=== PATIENT | female | born 2000 | race American Indian/Alaskan Native ===

== ENCOUNTER → 2023-05-02 16:00 | Outpatient (BNVA) | payer OTHER, SELFPAY | PROVIDERS: PCP Internal Medicine; Visit Provider Physician Assistant Surgical ==

== ENCOUNTER 2023-06-18 09:03 | Outpatient (AMB) | payer OTHER, SELFPAY ==
[2023-06-18 09:05] VITALS: BP 113/65; PULSE 71; TEMP 36.4; O2SAT 100; BMI 41.4
--- NOTE | 2023-06-18 09:05 | A.OFFVIS_ITS ---
Intake VS Expanded 06/18/23 09:05 Height 5 ft 4 in Weight 241 lb BMI 41.4 BP 113/65 Blood Pressure Location Rt brachial Blood Pressure Position Sitting Pulse 71 Pulse Source Pulse Oximeter Temp 97.5 F Temperature Source Temporal Artery Scan Pulse Oximetry 100 Oxygen Delivery Method Room Air Body Fat 118.6 Body Fat Percentage 49.2 Free Fat Mass 122.4 Muscle Mass 116.2 Visceral Mass 12.0 Water Mass 88.2 BMR 1,798 Intake Visit Reasons: (OV) SWL BMI 42.0 Motor Coach Supervisor Required: Yes Motor Coach Supervisor Name: office cmi Allergies No Known Allergies Allergy (Verified 06/18/23 09:08) Medication List - Last Reconciled 06/18/23 by WYATT Martinez ferrous sulfate 325 mg PO DAILY HPI HPI Comments History of Present Illness Details Pt is here to start the [facility] weight loss program. She heard about our program from her clients. Her goal is to lose weight and achieve a healthy lifestyle. She reports first being concerned about her weight about 3 years ago, highest weight to date was 260. Current weight is 241 pounds with a BMI of 41.4. She has tried multiple methods of weight loss including fad diets, exercise without permanent results. She lives with her kids and . 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 She wakes at:?7 am, and goes to bed at?11 pm. Dinner is at 4 pm. Breakfast: skip or sandwich AM snack: green grapes Lunch: skip PM snack: skip Dinner: rice and meat and beans After dinner: skip Other snacks: none Liquids: 80-96 oz water, (previously 10 cans of coke daily, now none), Alcohol/marijuana/tobacco intake: none Exercise: treadmill at home, GERD score: 1 ISABELL score: 4 ESS score: 9 QOL score: 82 PFSH Surgical History Hx of section Family History Mother Anemia Son No problems noted. Son No problems noted. Daughter No problems noted. Social History Alcohol intake: never Patient Tobacco Use Status: Never used Tobacco Review of Systems Const All systems reviewed & are unremarkable except as noted in HPI and below Physical Exam Vital Signs: Last Vital Signs Temp 97.5 F 06/18/23 09:05 Pulse 71 06/18/23 09:05 BP 113/65 06/18/23 09:05 Pulse Ox 100 06/18/23 09:05 Oxygen Delivery Method Room Air 06/18/23 09:05 Const General: cooperative, healthy appearing and no acute distress Orientation/consciousness: patient oriented x3 HEENT Head: Yes normal to inspection Ears: hearing grossly normal bilaterally General nose exam: Normal external nose present Face and sinus: Yes normal facial exam Eyes General: appearance normal, both eyes and all related structures Resp Effort & Inspection: normal respiratory effort Auscultation: clear to auscultation bilaterally Cardio Rate: regular rate Rhythm: regular rhythm Heart sounds: S1 normal heart sound present and S2 normal heart sound present GI Inspection: Yes normal to inspection, No distended and Yes obesity Palpation (GI): Soft to palpation, nontender and no guarding Auscultation: normal bowel sounds Skin General skin exam: no rashes or lesions noted Neuro General: patient oriented x3 Extrem General: No edema Psych Appearance: grossly normal Mental Status: mental status grossly normal Speech and movement: Normal speech and movement present Affect: normal affect Attitude: cooperative Assessment & Plan Assessment & Plan (1) Morbid obesity: Code(s): E66.01 - Morbid (severe) obesity due to excess calories Plan: This is a?23 yo female who will start our SWL program to prepare for bariatric surgery.? Blood work, h pylori , CXR, ECG, Abd US and UGI have been ordered. She is being scheduled for RD and BH initial consultations. She will start SWL classes and watch the first three videos before her next appointment. ? Adequate sleep of 7-8 hours per night discussed, awakening at 7 am and going to bed around 11 pm ? Purchase body composition analyzer scale (Odalis lacy or [place] recommended) and check weight weekly. The best time to do this is first thing in the morning after going to the bathroom. 1. Nutritional counseling: Be sure to careful read the number of scoops per shake Start with 2 Premier Protein shakes ([employer], [employer], [employer]), (1 scoop in 8 oz low fat unsweetened almond milk or water) First shake at 8am-10am 1 protein bar (Fulfil bars at Target, [facility], or [employer]) at 11am-1pm. Second shake at 2pm-4 pm Dinner at 4pm (8 forks of protein and 8 forks of salad/vegetables). Meal to include lean meat (beef, fish, pork, turkey, chicken), cooked vegetables or a salad with olive oil and/or fruits (berries, pears, apples, kiwi). Avoid salt, breads, potatoes, rice, pasta, desserts. Another protein bar at 6pm-8pm. Try to drink 64 oz of water daily and avoid soda and juices. ?2. Each shake would be drunk slowly, like coffee in a period of 2 hours. ?3. Cut each bar in 4 pieces and eat each piece in 30 min ?to make each bar last 2 hours. ?4. I emphasized the importance of measuring accurately the food portion and measure it carefully when serving the food on the plate ?5. The meal portions include 8 full-size forks of meat and 8 full-size forks of salad. You always eat the meat portion but you can replace up to half of the forks of salad/vegetables with rice, potatoes or pasta, or a fruit ?if you like. The less you do it the better weight loss will be. ?6. One full-size fork is what can be scooped on the fork without falling aside and not what can be bit with the fork. Use regular forks like those you find in a typical restaurant. ?7.? Please send me weight measurements as soon as possible and then once a week. Always include your diet and exercise plan. Alternatively come weekly at the office for weight checks and send me the measurements. ?8. Exercise counseling: Begin by watching a stretching for beginners video. Start slowly and begin to stretch your muscles. You should do this before and after each exercise session to prevent injury. Please use the new treadmill that you got for your home. Ask the crm marketing manager or one of the trainers how to use the machines if you are unfamiliar with them. Start treadmill with a speed of 3.0 and incline of 0, increasing incline by 1 every 3 minutes to the highest comfortable level (max 6 for now) then decrease in the same fashion. Repeat process to a goal of 300 calories. Goal of 2000 calories burned or more weekly. If you decide to join a gym or add another exercise machine such as a stationary bike, let me know and I can give you instruction for that. Tracking calories is essential. 9. Alternatively start walking outside daily, tracking calories with a goal of 300 calories per day, daily. You can download the [email or web address] [email or web address] which can track your time, distance and calories while walking outside. You press start in the bhupendra when you start and then stop when you are finished. 10.? It is important to avoid and for at least 18 months postoperatively and it has been discussed at the information session 11. Please get labs, EKG and chest X-Ray within 1 week. 12. Discussed and answered all questions regarding?obtained consent to participate in the [facility]?Registry. 13. Please follow the diet plan exactly, without any change. If you do not like something about the plan or you feel hungry, you need to communicate with me so I can help you revise the plan. You should not change the plan yourself. Text me at [phone] 14. Goal is to lose at least 12 pounds in the first month 15. Goal is to lose 10% of your weight before surgery, which is about 24 lbs. Ultimate weight goal: 220 lbs before surgery Patient is morbidly obese and is not considered stable at this time.?I spent a total of 70 minutes reviewing/updating records, examining the patient and counseling the patient on weight management as detailed above. Orders: Orders Vitamin B12 and Folate Today E66.01 - Morbid (severe) obesity due to excess calories Comprehensive Met. Panel Today E66.01 - Morbid (severe) obesity due to excess calories C Reactive Protein Today E66.01 - Morbid (severe) obesity due to excess calories Ferritin Today E66.01 - Morbid (severe) obesity due to excess calories Hemoglobin A1c Today E66.01 - Morbid (severe) obesity due to excess calories Insulin Today E66.01 - Morbid (severe) obesity due to excess calories IRON PROFILE Today E66.01 - Morbid (severe) obesity due to excess calories Lipid Panel Today E66.01 - Morbid (severe) obesity due to excess calories PTHI Today E66.01 - Morbid (severe) obesity due to excess calories TSH reflex Free T4 Today E66.01 - Morbid (severe) obesity due to excess calories Vitamin A Today E66.01 - Morbid (severe) obesity due to excess calories Vitamin B1 Today E66.01 - Morbid (severe) obesity due to excess calories Vitamin D 25-OH Total Today E66.01 - Morbid (severe) obesity due to excess calories Zinc Today E66.01 - Morbid (severe) obesity due to excess calories ECG 12 lead EKG Today E66.01 - Morbid (severe) obesity due to excess calories FL upper GI w air Today E66.01 - Morbid (severe) obesity due to excess calories Complete Blood Count Auto Diff Today E66.01 - Morbid (severe) obesity due to excess calories H Pylori Breath Test Today E66.01 - Morbid (severe) obesity due to excess calories US abdomen comp w elastography Today E66.01 - Morbid (severe) obesity due to excess calories XR chest 2V Today E66.01 - Morbid (severe) obesity due to excess calories Referrals Behavioral Health Referral E66.01 - Morbid (severe) obesity due to excess calories Nutrition/Dietitian Referral E66.01 - Morbid (severe) obesity due to excess calories Coding Level of Care Code New Pt Level 5 (50692) Diagnoses Morbid obesity E66.01 Time Spent (min) 70
== END 2023-06-18 10:09 | disposition home or self-care (01) ==
PROVIDERS: PCP Internal Medicine; Visit Provider Physician Assistant Surgical
DX: E66.01 Morbid (severe) obesity due to excess calories (principal); Z68.41 Body mass index [BMI] 40.0-44.9, adult
CPT/HCPCS: 99205

== ENCOUNTER 2023-06-18 09:03 | Outpatient (REF) | payer OTHER, SELFPAY ==
[2023-06-22 14:56] LABS: H Pylori Breath Test Negative (Negative)
== END 2023-06-18 09:04 | disposition home or self-care (01) ==
LOC: HO.LNP 09:03
PROVIDERS: PCP Internal Medicine; Visit Provider Physician Assistant Surgical
DX: Z11.2 Encounter for screening for other bacterial diseases (principal); E66.01 Morbid (severe) obesity due to excess calories
CPT/HCPCS: 83013; 99202; 99211

== ENCOUNTER 2023-07-07 09:51 | Outpatient (AMB) | payer OTHER, SELFPAY ==
--- NOTE | 2023-07-07 10:00 | MHC.AMNUTRGE ---
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 States she received the nutrition plan from KATI. didn't realize kind bars weren't protein bars meal 2-3pm had tilapia or chicken with broccoli and lettuce Hydration: water now, no sugar sweetened beverages Exercise: Everyday treadmill 45 minutes has one at home SW online classes: completed, reviewed Dietary counseling reduction Who buys your food self Who prepares/cooks your food self Meal frequency regular: dinner and snacks and never: breakfast and lunch Lifestyle Eating out 4 or more times/week Food frequency Fruit: daily (grapes and strawberries), Vegetables: daily (broccoli and lettuce), Grains/pasta/breads/cereal (carbs): daily, Meats/poultry/fish (protein): daily, Restaurants/fast foods: several times weekly, Desserts/sweets: daily, Soda: daily and Juice: daily Diagnosis Nutrition problem #1 overweight/obesity As related to (etiology) #1 excess energy intake and physical inactivity As evidenced by (sign/symptom) #1 high BMI Monitoring/Goals Nutrition problem monitoring total energy intake, level of knowledge/skill, total PRO intake, total CHO intake and weight Outcome progress progressing Learning/Education Readiness to learn good Stages of change action Educational materials provided Yes Most Recent Diabetes Results: No Data to Display [facility] Surgical History Hx of section Family History Mother Anemia Son No problems noted. Son No problems noted. Daughter No problems noted. Social History Alcohol intake: never Patient Tobacco Use Status: Never used Tobacco Assessment & Plan Assessment & Plan (1) Morbid obesity: Code(s): E66.01 - Morbid (severe) obesity due to excess calories Patient Instructions: explained the difference between KIND bars and protein bars. Corrected pt on the right nutrition plan and explained the differences between. OK'ed using the premade shakes until she meets with Gallito but gave bars list. Patient is cleared from a nutrition standpoint for bariatric surgery. Educational requirements have been completed. Reviewed vitamin supplementation and commitment to protein shake for several months post surgery. Encouraged communication with office as needed Coding Level of Care Code Nutr Indiv Intake (74672) Diagnoses Morbid obesity E66.01 Time Spent (min) 35
[2023-07-07 10:21] VITALS: BMI 40.8
== END 2023-07-07 10:29 | disposition home or self-care (01) ==
PROVIDERS: PCP Internal Medicine; Visit Provider Dietitian, Registered
DX: E66.01 Morbid (severe) obesity due to excess calories (principal)

== ENCOUNTER → 2023-07-07 09:51 | Outpatient (BNVA) | payer OTHER, SELFPAY | PROVIDERS: PCP Internal Medicine; Visit Provider Dietitian, Registered | DX: E66.01 Morbid (severe) obesity due to excess calories (principal); Z68.41 Body mass index [BMI] 40.0-44.9, adult; Z71.3 Dietary counseling and surveillance | CPT/HCPCS: 97802 ==

== ENCOUNTER 2023-07-10 09:20 | Outpatient (REF) | payer OTHER, SELFPAY ==
--- NOTE | ~2023-07-10 | XR_ITS ---
EXAMINATION: XR CHEST 2 VIEWS CLINICAL INFORMATION: Morbid obesity. COMPARISON: None. TECHNIQUE: Frontal and lateral views of the chest were obtained. FINDINGS: The heart, great vessels, pulmonary vasculature and mediastinum are normal. The lungs show no focal infiltrate, effusion or pneumothorax. There is no acute osseous abnormality. XR/XR chest 2V IMPRESSION: No active cardiopulmonary disease.
--- NOTE | 2023-07-10 10:49 | ECG_ITS ---
Test Reason : E66.01 Blood Pressure : / mmHG Vent. Rate : 067 BPM Atrial Rate : 067 BPM P-R Int : 174 ms QRS Dur : 082 ms QT Int : 392 ms P-R-T Axes : 026 038 008 degrees QTc Int : 414 ms Normal sinus rhythm Normal ECG No previous ECGs available Referred By: Gallito Lutz Electronically Signed By:ALICIA WAHL
[2023-07-10 11:04] LABS: MANUAL DIFF FLAG NO
[2023-07-10 12:22] LABS: Basophils Percent Auto 0.3 % (0-2); Eosinophils Percent Auto 0.6 % (0-4); Hematocrit 36.1 % (37.0-47.0); Hemoglobin 10.6 g/dl (12.0-16.0); Imm Gran Abs Auto 0.02 X10*3/uL (0.00-0.03); Imm Gran Pct Auto 0.3 % (0.0-0.4); Lymphocytes Absolute Auto 1.7 X10*3/uL (1.2-4.9); Lymphocytes Percent Auto 26.4 % (20-40); Mean Corpuscular HGB Conc 29.4 g/dl (31.0-35.0); Mean Corpuscular Hemoglobin 22.4 pg (27.0-33.0); Mean Corpuscular Volume 76.2 fL (80.0-98.0); Mean Platelet Volume 12.1 fL (9.4-12.3); Monocytes Absolute Auto 0.3 X10*3/uL (0.1-1.2); Monocytes Percent Auto 4.9 % (2-11); Neutrophils Absolute Auto 4.4 x10*3/uL (2.0-8.3); Neutrophils Percent Auto 67.5 % (45-73); Platelet Count 289 X10*3/uL (160-400); Red Blood Count 4.74 X10*6/uL (4.20-5.50); Red Cell Distribution Width 15.8 % (11.0-16.0); White Blood Count 6.6 X10*3/uL (4.8-10.8)
[2023-07-10 12:30] LABS: Estimated Average Glucose 108 mg/dL; Hemoglobin A1c % 5.4 %
[2023-07-10 13:17] LABS: Alanine Aminotransferase 9 U/L (0-31); Albumin Level 4.4 g/dL (3.5-5.0); Alkaline Phosphatase 95 U/L (39-117); Anion Gap 10 (12-20); Aspartate Amino Transferase 15 U/L (5-31); Bilirubin Total 0.3 mg/dL (0.0-1.0); Blood Urea Nitrogen 6 mg/dL (9-16); C Reactive Protein 0.36 mg/dL (< or = 0.50); Calcium 9.7 mg/dL (8.4-10.2); Carbon Dioxide 24 mmol/L (22-29); Chloride 109 mmol/L (96-108); Cholesterol 131 mg/dL; Estimated Glomerular Filt Rate > 60; Glucose Random 80 mg/dL (60-115); HDL Cholesterol 42 mg/dL; Iron 25 mcg/dL (30-160); LDL Cholesterol Calculated 79 mg/dl; Percent Iron Saturation 7 % (15-50); Potassium 3.4 mmol/L (3.3-5.1); Sodium 140 mmol/L (135-145); Total Iron Binding Capacity 368 mcg/dL (228-428); Total Protein 7.9 g/dL (6.5-8.0); Triglycerides 54 mg/dL; Unsaturated Iron Binding 343 ug/dL
[2023-07-10 13:35] LABS: Ferritin 6 ng/mL (10-122); Insulin 14 uU/mL (2-29); TSH reflex Free T4 0.41 uIU/mL (0.32-4.0); Vitamin D 25-OH Total 14.1 ng/mL (>30)
[2023-07-10 13:42] LABS: Folate 12.2 ng/mL (> or = 4.0); Vitamin B12 922 pg/mL (200-900)
[2023-07-14 13:48] LABS: Calcium (PTHI) 9.4 mg/dL (8.6-10.2); PTHI 55 pg/mL (16-77)
[2023-07-15 01:57] LABS: Zinc 72 mcg/dL (60-130)
[2023-07-15 15:28] LABS: Vitamin A 18 mcg/dL (38-98)
[2023-07-16 16:09] LABS: Vitamin B1 7 nmol/L (8-30)
== END 2023-07-10 09:21 | disposition home or self-care (01) ==
LOC: HO.LAB 09:20
PROVIDERS: PCP Pediatrics; Visit Provider Physician Assistant Surgical
DX: E66.01 Morbid (severe) obesity due to excess calories (principal); F41.9 Anxiety disorder, unspecified; F32.A Depression, unspecified; F51.5 Nightmare disorder
CPT/HCPCS: 36415; 71046; 80053; 80061; 82306; 82607; 82728; 82746; 83036; 83525; 83540; 83970; 84425; 84443; 84590; 84630; 85025; 86140; 93005

== ENCOUNTER 2023-07-10 09:27 | Outpatient (AMB) | payer OTHER, SELFPAY ==
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
== END 2023-07-10 10:42 | disposition home or self-care (01) ==
PROVIDERS: PCP Internal Medicine; Visit Provider Counselor Mental Health
DX: F41.9 Anxiety disorder, unspecified (principal); F32.A Depression, unspecified; F51.5 Nightmare disorder
CPT/HCPCS: 90791

== ENCOUNTER 2023-07-22 09:04 | Outpatient (AMB) | payer OTHER, SELFPAY ==
--- NOTE | 2023-07-22 09:11 | MHC.OFFVISWM ---
Intake VS Expanded 07/22/23 09:18 Height 5 ft 4 in Weight 235 lb 6.4 oz BMI 40.4 Blood Pressure Location Rt brachial Blood Pressure Position Sitting Pulse 79 Pulse Source Pulse Oximeter Temp 98.7 F Temperature Source Temporal Artery Scan Pulse Oximetry 97 Oxygen Delivery Method Room Air Body Fat 113.6 Body Fat Percentage 48.3 Free Fat Mass 121.6 Muscle Mass 115.6 Visceral Mass 11.0 Water Mass 87.6 BMR 1,781 Intake Visit Reasons: (OV) F/U SWL Charge Account Identification Clerk Required: Yes Charge Account Identification Clerk Name: office cmi Allergies No Known Allergies Allergy (Verified 07/22/23 09:15) Medication List - Last Reconciled 07/22/23 by WYATT Martinez cholecalciferol (vitamin D3) 125 mcg PO DAILY 90 days ferrous sulfate 325 mg PO DAILY thiamine HCl (vitamin B1) 100 mg PO DAILY 90 days vitamin A palmitate 4,500 mcg PO DAILY 90 days HPI HPI Comments History of Present Illness Details The patient is a pleasant 23 year old female who returns to the clinic for pre-operative surgical weight loss management. They were last seen in the office on 06/18/23, recorded weight at that time was 241 pounds, with a BMI of 41.4. Today's weight is 235.4 pounds and BMI is 40.4. There has been a weight loss of 9 pounds since initiating the surgical weight loss program on 05/02/23 with a total body weight loss of 3.6 %. Pre op work up completed as follows: SWL classes:? 07/01 BH appts: f/u 08/07/23 ? ? RD appts: cleared-07/07/23 Labs: 07/10/23-mild iron def anemia, , low D, B1 H. pylori: 06/18/23-neg CXR: 07/10/23-nad EK07/10/23-normal ABD U/S: 08/05/23 UGI: 09/12/23 The patient reports she is doing well. No complaints. Only doing 1/2 bar at a time. Current meal plan includes: 2 Premier Protein shakes ([employer], [employer], [employer]), (1 scoop in 8 oz low fat unsweetened almond milk or water) First shake at 8am-10am 1/2 protein bar (Fulfil bars at [employer], [facility], or [employer]) at 11am-1pm. Second shake at 2pm-4 pm Dinner at 4pm (8 forks of protein and 8 forks of salad/vegetables). Another 1/2 protein bar at 6pm-8pm. Drinking 48 oz of water Current exercise plan includes: treadmill 7 days per week, 45 minutes, speed 2 incline 8, cannot track calories. PFSH Surgical History Hx of section Family History Mother Anemia Son No problems noted. Son No problems noted. Daughter No problems noted. Social History Alcohol intake: never Patient Tobacco Use Status: Never used Tobacco Review of Systems Const All systems reviewed & are unremarkable except as noted in HPI and below Physical Exam Const General: healthy appearing and no acute distress Resp Effort & Inspection: normal respiratory effort Auscultation: clear to auscultation bilaterally Cardio Rate: regular rate Rhythm: regular rhythm GI Auscultation: normal bowel sounds Extrem General: Yes normal to inspection Assessment & Plan Assessment & Plan (1) Morbid obesity: Code(s): E66.01 - Morbid (severe) obesity due to excess calories Plan: overall 9 pound weight loss continue meal plan increase speed on treadmill and increase incline in interval fashion 2-10. reminded of upcoming appts rtc 3-4 weeks Coding Level of Care Code Est Pt Level 3 (32185) Diagnoses Morbid obesity E66.01
[2023-07-22 09:18] VITALS: PULSE 79; TEMP 37.1; O2SAT 97; BMI 40.4
== END 2023-07-22 09:30 | disposition home or self-care (01) ==
PROVIDERS: PCP Internal Medicine; Visit Provider Physician Assistant Surgical
DX: E66.01 Morbid (severe) obesity due to excess calories (principal); Z68.41 Body mass index [BMI] 40.0-44.9, adult
CPT/HCPCS: 99213

== ENCOUNTER → 2023-07-22 09:04 | Outpatient (BNVA) | payer OTHER, SELFPAY | PROVIDERS: PCP Internal Medicine; Visit Provider Physician Assistant Surgical | DX: E66.01 Morbid (severe) obesity due to excess calories (principal); Z68.41 Body mass index [BMI] 40.0-44.9, adult | CPT/HCPCS: 99212 ==

== ENCOUNTER 2023-08-05 07:57 | Outpatient (REF) | payer OTHER, SELFPAY ==
--- NOTE | ~2023-08-05 | US_ITS ---
EXAMINATION: US COMPLETE ABDOMEN WITH LIVER ELASTOGRAPHY CLINICAL INFORMATION: Morbid obesity. COMPARISON: None available. TECHNIQUE: Real-time imaging of the abdominal viscera. Noninvasive ultrasound liver fibrosis assessment is performed using Ileana ElastPQ point quantification shear wave elastography (2D-SWE) with a C5-2 MHz transducer. Multiple elastography samples are obtained. FINDINGS: PANCREAS: Head and body appear unremarkable. Tail not visualized. ABDOMINAL AORTA: The proximal, middle, and distal aortic segments are normal in caliber. INFERIOR VENA CAVA: Visualized portions are normal. LIVER: No focal lesion or intrahepatic biliary duct dilatation is appreciated. The right lobe measures 14.3 cm in length. The left lobe measures 8.3 cm in length. Portal flow is towards the liver (hepatopetal). Shear wave liver elastography median stiffness is 1.28 m/s (reference: normal median stiffness is 1.3 m/s or less). Relative compliance of the liver measures 4.8 kPa. GALLBLADDER: The gallbladder is physiologically distended without evidence of stones, sludge, polyps, wall thickening or pericholecystic fluid. COMMON BILE DUCT: Normal in caliber measuring 0.1 cm in diameter. RIGHT KIDNEY: No hydronephrosis. No renal calculi or focal parenchymal lesion identified. The kidney measures 10.1 cm in maximum dimension. LEFT KIDNEY: No hydronephrosis. No renal calculi or focal parenchymal lesion identified. The kidney measures 11.2 cm in maximum dimension. SPLEEN: The spleen measures 12.8 cm in maximum dimension. FREE FLUID: None. US/US abdomen comp w elastography IMPRESSION: Minimal risk of clinically significant fibrosis. Borderline mild splenomegaly. REFERENCE: Society of Radiologists in Ultrasound Liver Stiffness Thresholds (2020): LIVER STIFFNESS THRESHOLDS: *Liver Stiffness equal or less than 1.3 m/s: High probability of being normal. *Liver Stiffness less than 1.7 m/s: In the absence of other known clinical signs, rules out compensated advanced chronic liver disease. *Liver Stiffness 1.7-2.1 m/s: Suggestive of compensated advanced chronic liver disease but need further test for confirmation. *Liver Stiffness over 2.1 m/s: Rules in compensated advanced chronic liver disease. *Liver Stiffness over 2.4 m/s: Suggestive of clinically significant portal hypertension. QUALITY OF DATA SET: *IQR/Median value equal or less than 0.15 implies a quality data set. *IQR/Median value over 0.15 implies a poor quality data set. SIGNIFICANT CHANGE FROM PRIOR EXAM: Significant change if liver stiffness measurement is 10% or greater from prior exam. OTHER CONSIDERATIONS: The stage of liver fibrosis may be overestimated in the setting of acute hepatitis, liver inflammation, elevated liver function tests, hepatic vascular congestion, obstructive cholestasis, non-fasting state, and infiltrative diseases such as amyloidosis and lymphoma. In some patients with NAFLD, the liver stiffness thresholds for compensated advanced chronic liver disease may be lower. In causes other than viral hepatitis and NAFLD, liver stiffness thresholds are not well established.
== END 2023-08-05 07:58 | disposition home or self-care (01) ==
LOC: HO.US 07:57
PROVIDERS: PCP Internal Medicine; Visit Provider Physician Assistant Surgical
DX: E66.01 Morbid (severe) obesity due to excess calories (principal)
CPT/HCPCS: 76705; 76981

== ENCOUNTER 2023-08-07 09:34 | Outpatient (AMB) | payer OTHER, SELFPAY ==
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
== END 2023-08-07 12:33 | disposition home or self-care (01) ==
PROVIDERS: PCP Pediatrics; Visit Provider Counselor Mental Health
DX: F41.9 Anxiety disorder, unspecified (principal); F32.A Depression, unspecified; F51.5 Nightmare disorder
CPT/HCPCS: 90834

== ENCOUNTER → 2023-08-07 09:34 | Outpatient (BNVA) | payer OTHER, SELFPAY | PROVIDERS: PCP Pediatrics; Visit Provider Counselor Mental Health ==

== ENCOUNTER 2023-08-15 08:38 | Outpatient (AMB) | payer OTHER, SELFPAY ==
--- NOTE | 2023-08-15 08:39 | A.OFFVIS_ITS ---
Intake VS Expanded 08/15/23 08:44 Height 5 ft 4 in Weight 231 lb BMI 39.6 BP 121/59 L Blood Pressure Location Rt brachial Blood Pressure Position Sitting Pulse 72 Pulse Source Pulse Oximeter Temp 98 F Temperature Source Temporal Artery Scan Pulse Oximetry 100 Body Fat 111.2 Body Fat Percentage 48.1 Free Fat Mass 119.8 Muscle Mass 113.8 Visceral Mass 11.0 Water Mass 86.2 BMR 1,752 Intake Visit Reasons: (OV) F/U SWL Automation Engineer Required: Yes Automation Engineer Name: office cmi Allergies No Known Allergies Allergy (Verified 08/15/23 08:42) Medication List - Last Reconciled 08/15/23 by WYATT Martinez cholecalciferol (vitamin D3) 125 mcg PO DAILY 90 days ferrous sulfate 325 mg PO DAILY thiamine HCl (vitamin B1) 100 mg PO DAILY 90 days HPI HPI Comments History of Present Illness Details The patient is a pleasant 23 year old female who returns to the clinic for pre-operative surgical weight loss management. They were last seen in the office on 07/22/23, recorded weight at that time was 235.4 pounds, with a BMI of 40.4. Today's weight is 231 pounds and BMI is 39.7. There has been a weight loss of 13.4 pounds since initiating the surgical weight loss program on 05/22/23 with a total body weight loss of 5.4 %. Pre op work up completed as follows: SWL classes:? 07/01 BH appts: f/u 08/27/23 ? ? RD appts: cleared-07/07/23 Labs: 07/10/23-mild iron def anemia, , low D, B1 H. pylori: 06/18/23-neg CXR: 07/10/23-nad EK07/10/23-normal ABD U/S: 08/05/23-min fatty liver UGI: 09/12/23 The patient reports she is doing well. No complaints. States previous Vit A wasn't covered by insurance so she didn't get it. I sent in another formulary. Current meal plan includes: 2 Premier Protein shakes ([employer], [employer], [facility]), (1 scoop in 8 oz low fat unsweetened almond milk or water) First shake at 8am-10am 1/2 protein bar (Fulfil bars at [employer], [facility], or [employer]) at 11am-1pm. Second shake at 2pm-4 pm Dinner at 4pm (8 forks of protein and 8 forks of salad/vegetables). Another 1/2 protein bar at 6pm-8pm. Drinking 48 oz of water Current exercise plan includes: treadmill 7 days per week, 60 minutes, speed 5 incline 5, cannot track calories. PFSH Surgical History Hx of section Family History Mother Anemia Son No problems noted. Son No problems noted. Daughter No problems noted. Social History Alcohol intake: never Patient Tobacco Use Status: Never used Tobacco Review of Systems Const All systems reviewed & are unremarkable except as noted in HPI and below Physical Exam Vital Signs: Last Vital Signs Temp 98 F 08/15/23 08:44 Pulse 72 08/15/23 08:44 BP 121/59 L 08/15/23 08:44 Pulse Ox 100 08/15/23 08:44 BMI result Body Mass Index 39.6 Const General: healthy appearing and no acute distress Resp Effort & Inspection: normal respiratory effort Auscultation: clear to auscultation bilaterally Cardio Rate: regular rate Rhythm: regular rhythm GI Auscultation: normal bowel sounds Extrem General: Yes normal to inspection Assessment & Plan Assessment & Plan (1) Obesity (BMI 30-39.9): Code(s): E66.9 - Obesity, unspecified Plan: change meal plan to : 2 Premier Protein shakes ([employer], [employer], [facility]), (1 scoop in 8 oz low fat unsweetened almond milk or water) First shake at 8am-10am Second shake at 2pm-4 pm Dinner at 4pm (8 forks of protein and 8 forks of salad/vegetables). Another 1/2 protein bar at 6pm-8pm. Continue exercise and reminded of upcoming appt. RTC 3 weeks Medications: New vitamin A 4,800 mcg (2 x 2,400 mcg) PO DAILY 90 days 180 caps 0RF Coding Level of Care Code Est Pt Level 3 (80533) Diagnoses Obesity (BMI 30-39.9) E66.9
[2023-08-15 08:44] VITALS: BP 121/59; PULSE 72; TEMP 36.6; O2SAT 100; BMI 39.6
== END 2023-08-15 09:00 | disposition home or self-care (01) ==
PROVIDERS: PCP Internal Medicine; Visit Provider Physician Assistant Surgical
DX: E66.9 Obesity, unspecified (principal); Z68.39 Body mass index [BMI] 39.0-39.9, adult
CPT/HCPCS: 99213

== ENCOUNTER → 2023-08-15 08:38 | Outpatient (BNVA) | payer OTHER, SELFPAY | PROVIDERS: PCP Internal Medicine; Visit Provider Physician Assistant Surgical | DX: E66.9 Obesity, unspecified (principal); Z68.39 Body mass index [BMI] 39.0-39.9, adult | CPT/HCPCS: 99212 ==

== ENCOUNTER 2023-08-27 10:34 | Outpatient (AMB) | payer OTHER, SELFPAY ==
--- NOTE | 2023-08-27 10:07 | A.OFFWM_ITS ---
Intake Intake Visit Reasons: VIDEO BH F/U Allergies No Known Allergies Allergy (Verified 08/15/23 08:42) PFSH Surgical History Hx of section Family History Mother Anemia Son No problems noted. Son No problems noted. Daughter No problems noted. Social History Alcohol intake: never Patient Tobacco Use Status: Never used Tobacco Behavioral Health Assessment Weight Management Therapy Therapy Notes Details Pt presents for a f/up. Pt reports been struggling with meal plan and controlling urges for food and her speed when eating her meal. Noticing she's not chewing well her food and then feeling stuffed with stomach ache after, also has been scnacking at night since she's hungry after 6pm. Stated she was doing well until 2 weeks ago. INTERVENTIONS: Processed current challenges and struggles practicing mindful eating. Explored possible triggers or anxieties. Administered BES again, and there is no changes on scores. Provided client with strategies to replace/delay intrusive thoughts/urges for food and RESPONSE: Pt was open and engaged. PLAN: Clinician will share with construction safety manager and Provider patient's concerns and interest in having alternatives for healthy snacks and possible changess (add something) on meal plan. Questionnaires Binge Eating Scale Group 1 A. I don't feel self-conscious about my wt. or body size when I'm with others. B. I feel concerned about how I look to others, but it normally does not make me fell disappointed with myself C. I do get self-conscious about my appearance and wt. which makes me feel disappointed in myself. D. I feel very self-conscious about my wt. and frequently I feel intense shame and disgust for myself. I try to avoid social contacts because of my self- consciousness. Response Group 1: D Group 2 A. I don't have any difficulty eating slowly in the proper manner. B. Although I seem to gobble down foods, I don't end up feeling stuffed because of eating to much. C. At times, I tend to eat quickly and then, I feel uncomfortably full afterwards. D. I have the habit of bolting down my food, without really chewing it. When this happens I usually feel uncomfortably stuffed because I've eaten to much. Response Group 2: C (Same) Group 3 A. I feel capable to control my eating urges when I want to. B. I feel like I have failed to control my eating more than the average person. C. I feel utterly helpless when it comes to feeling in control of my eating urges. D. Because I feel so helpless about controlling my eating I have become very desperate about trying to get control. Response Group 3: D (Same) Group 4 A. I don't have the habit of eating when I'm bored. B. I sometimes eat when I'm bored, but often I'm able to get busy and get my mi nd off food. C. I have a regular habit of eating when I'm bored, but occasionally, I can use some other activity to get my mind off eating. D. I have a strong habit of eating when I'm bored. Nothing seems to help me breath the habit. Response Group 4: C (Same) Group 5 A. I'm usually physically hungry when I eat something. B. Occasionally, I eat something on impulse even though I really am not hungry. C. I have the regular habit of eating foods, that I might not really enjoy, to satisfy a hungry feeling even though physically, I don't need the food. D. Although I'm not physically hungry, I get a hungry feeling in my mouth that only seems to be satisfied when I eat a food, like sandwich, that fills my mouth. Sometimes, when I eat the food to satisfy my mouth hunger, I then spit the food out so I won't gain weight. Response Group 5: C Group 6 A. I don't feel any guilt or self-hate after I overeat. B. After I overeat, occasionally I feel guilt or self-hate. C. Almost all the time I experience strong guilt or self-hate after I overeat. Response Group 6: C Group 7 A. I don't lose total control of my eating when dieting even after periods when I overeat. B. Sometimes when I eat a forbidden food on a diet, I feel like I blew it and eat even more. C. Frequently, I have the habit of saying to myself, I've blown it now, why not go all the way, when I overeat on a diet. When that happens I eat more. D. I have a regular habit of starting a strict diets for myself but I break the diets by going on an eating binge. My life seems to be either a feast or famine. Response Group 7: D Group 8 A. I rarely eat so much food that I feel uncomfortably stuffed afterwards. B. Usually about once a month, I each such a quantity of food, I end up feeling very stuffed. C. I have regular periods during the month when I eat large amounts of food, either at mealtime or at snacks. D. I eat so much food that I regularly feel quite uncomfortable after eating and sometimes a bit nauseous. Response Group 8: B Group 9 A. My level of calorie intake does not go up very high or go down very low on a regular basis. B. Sometimes after I overeat, I will try to reduce my caloric intake to almost nothing to compensate for the excess calories I've eaten. C. I have a regular habit of overeating during the night. It seems that my routine is not to be hungry in the morning but overeat in the evening. D. In my adult years, I have had week-long periods where I practically starve myself. This follows periods when I overeat. It seems I live a life of either feast or famine. Response Group 9: B Group 10 A. I usually am able to stop eating when I want to. I know when enough is enough. B. Every so often, I experience a compulsion to eat which I can't seem to control. C. Frequently, I experience strong urges to eat which I seem unable to control, but at other times I can control my eating urges. D. I feel incapable of controlling urges to eat. I have a fear of not being able to stop eating voluntarily. Response Group 10: B Group 11 A. I don't have any problem stopping eating when I feel full. B. I usually can stop eating when I feel full but occasionally overeat leaving me feeling uncomfortably stuffed. C. I have a problem stopping eating once I start and usually I feel uncomfortably stuffed after I eat a meal. D. Because I have a problem not being able to stop eating when I want, I sometimes have to induce vomiting to relieve my stuffed feeling. Response Group 11: A Group 12 A. I seem to eat just as much when I'm with others, Family social gatherings as when I'm by myself. B. Sometimes, when I'm with other persons, I don't eat as much as I want to eat because I'm self-conscious about my eating. C. Frequently, I eat only a small amount of food when others are present, haseeb use I'm very embarrassed about my eating. D. I feel so ashamed about overeating that I pick times to overeat when I know no one will see me. I feel like a closet eater. Response Group 12: C Group 13 A. I eat three meals a day with only an occasional between meal snack. B. I eat 3 meals a day, but I also normally snack between meals. C. When I am snacking heavily, I get in the habit of skipping regular meals. D. There are regular periods when I seem to be continually eating, with no planned meals. Response Group 13: C Group 14 A. I don't think much about trying to control unwanted eating urges. B. At least some of the time, I feel my thoughts are pre-occupied with trying to control my eating urges. C. I feel that frequently I spend much time thinking about how much I ate or about trying not to eat anymore. D. It seems to me that most of my waking hours are pre-occupied by thoughts about eating or not eating. I feel like I'm constantly struggling not to eat. Response Group 14: D (Same.) Group 15 A. I don't think about food a great deal. B. I have strong craving for food but they last only for brief periods of time. C. I have days when I can't seem to think about anything else but food. D. Most of my days seem to be pre-occupied with thoughts about food. I feel like I live to eat. Response Group 15: B Group 16 A. I usually know whether or not I'm physically hungry. I take the right portion of food to satisfy me. B. Occasionally, I feel uncertain about knowing whether or not I'm physically hungry. A these times it's hard to know how much food I should take to satisfy me. C. Even though I might know how many calories I should eat, I don't have any idea what is a normal amount of food for me. Response Group 16: B Binge Eating Score: 29 (No changes. ) Score less than 17 Minimal Risk Score between 18-26 Moderate Risk Score between 27-46 High Risk Assessment & Plan Assessment & Plan (1) Anxiety: Code(s): F41.9 - Anxiety disorder, unspecified (2) Depression: Code(s): F32.A - Depression, unspecified (3) Nightmares: Code(s): F51.5 - Nightmare disorder Plan Follow up again in 4 weeks. Next bhupendra: 09/24/23 at 10am via telehealth. Telehealth Telehealth Location of provider rendering services: other Location of patient: address on file Patient Identification confirmed using: Name, : Yes Telehealth method: video Patient verbally consented to treatment: Yes Patient verbally consented to billing insurance company: Yes Patient informed of any privacy concerns related to visit: Yes Minutes spent on Phone/Video with Pt.: 60 Coding Level of Care Code Established Pt Tele Psytx >53 mins (61083) Patient Type Established Diagnoses Anxiety F41.9 Depression F32.A Nightmares F51.5 Time Spent (min) 60
== END 2023-08-27 11:00 | disposition home or self-care (01) ==
LOC: HO.HBST 10:34
PROVIDERS: PCP Internal Medicine; Visit Provider Counselor Mental Health
DX: F41.9 Anxiety disorder, unspecified (principal); F32.A Depression, unspecified; F51.5 Nightmare disorder
CPT/HCPCS: 90837

== ENCOUNTER → 2023-08-27 10:34 | Outpatient (BNVA) | payer OTHER, SELFPAY | PROVIDERS: PCP Internal Medicine; Visit Provider Counselor Mental Health ==

== ENCOUNTER 2023-09-08 11:02 | Outpatient (AMB) | payer OTHER, SELFPAY ==
--- NOTE | 2023-09-08 11:21 | MHC.OFFVISWM ---
Intake VS Expanded 09/08/23 11:29 BP 112/58 L Blood Pressure Location Rt brachial Blood Pressure Position Sitting Pulse 91 Pulse Source Pulse Oximeter Temp 97.8 F Temperature Source Temporal Artery Scan Pulse Oximetry 99 Oxygen Delivery Method Room Air Height 5 ft 4 in Weight 231 lb 6.4 oz BMI 39.7 Body Fat % 47.8 Body Fat Mass 110.4 Fat Free Mass 120.8 Visceral Fat Rating 11.0 Body Water % 37.6 Body Water Mass 86.8 Muscle Mass/Score 114.6 Basal Metabolic Rate/Score 1,765 Intake Visit Reasons: (OV) F/U SWL Chemical Engineering Technician Required: Yes Chemical Engineering Technician Name: office cmi Allergies No Known Allergies Allergy (Verified 09/08/23 11:27) Medication List - Last Reconciled 09/08/23 by WYATT Martinez bisacodyl (Dulcolax (bisacodyl)) 10 mg VA DAILY PRN cholecalciferol (vitamin D3) 125 mcg PO DAILY 90 days ferrous sulfate 325 mg PO DAILY sennosides (senna) 17.2 mg (2 x 8.6 mg) PO BEDTIME PRN 90 days thiamine HCl (vitamin B1) 100 mg PO DAILY 90 days vitamin A 4,800 mcg (2 x 2,400 mcg) PO DAILY 90 days HPI HPI Comments History of Present Illness Details The patient is a pleasant 23 year old female who returns to the clinic for pre-operative surgical weight loss management. They were last seen in the office on 08/15/23, recorded weight at that time was 231 pounds, with a BMI of 39.6. Today's weight is 231.4 pounds and BMI is 39.7. There has been a weight loss of 13 pounds since initiating the surgical weight loss program on 05/02/23 with a total body weight loss of 5.3 %. Pre op work up completed as follows: SWL classes:? 07/01 BH appts: f/u 09/24/23 ? ? RD appts: cleared-07/07/23 Labs: 07/10/23-mild iron def anemia, , low D, B1 H. pylori: 06/18/23-neg CXR: 07/10/23-nad EK07/10/23-normal ABD U/S: 08/05/23-min fatty liver UGI: 09/12/23 The patient reports she has not lost any weight in the last month and has not communicated as she lost her phone but got a new one. Reports constipation for a week, min abdominal pain. Pos Flatus, no nausea. Reports following meal plan but changed her bar to quest without communicating. She is also not drinking the shake over 2 hrs Current meal plan includes: 2 Premier Protein shakes ([employer], [employer], [employer]), (1 scoop in 8 oz low fat unsweetened almond milk or water) First shake at 8am-10am 1/2 bar Quest 11-1 pm Second shake at 2pm-4 pm Dinner at 4pm (8 forks of protein and 8 forks of salad/vegetables). Drinking 48 oz of water Current exercise plan includes: treadmill 7 days per week, 60 minutes, speed 5 incline 5, machine cannot track calories. PFSH Surgical History Hx of section Family History Mother Anemia Son No problems noted. Son No problems noted. Daughter No problems noted. Social History Alcohol intake: never Patient Tobacco Use Status: Never used Tobacco Physical Exam Vital Signs: Last Vital Signs Temp 97.8 F 09/08/23 11:29 Pulse 91 09/08/23 11:29 BP 112/58 L 09/08/23 11:29 Pulse Ox 99 09/08/23 11:29 Oxygen Delivery Method Room Air 09/08/23 11:29 BMI result Body Mass Index 39.7 Const General: healthy appearing and no acute distress Resp Effort & Inspection: normal respiratory effort Auscultation: clear to auscultation bilaterally Cardio Rate: regular rate Rhythm: regular rhythm GI Auscultation: normal bowel sounds Extrem General: Yes normal to inspection Assessment & Plan Assessment & Plan (1) Obesity (BMI 30-39.9): Code(s): E66.9 - Obesity, unspecified Plan: 2 Premier Protein shakes ([employer], [employer], [employer]), (1 scoop in 8 oz low fat unsweetened almond milk or water) First shake at 8am-10am 1 bar Quest 11-1 pm Second shake at 2pm-4 pm Dinner at 4pm (8 forks of protein and 8 forks of salad/vegetables). imperative to communicate rtc 1 month (2) Constipation: Code(s): K59.00 - Constipation, unspecified Plan: add dulvcolax, senna, incr water to 64 oz daily Medications: New sennosides (senna) 17.2 mg (2 x 8.6 mg) PO BEDTIME PRN 180 tabs 0RF constipation 90 days bisacodyl (Dulcolax (bisacodyl)) 10 mg VA DAILY PRN 12 ea 0RF constipation Coding Level of Care Code Est Pt Level 4 (76954) Diagnoses Obesity (BMI 30-39.9) E66.9 Constipation K59.00 Time Spent (min) 40
[2023-09-08 11:29] VITALS: BP 112/58; PULSE 91; TEMP 36.6; O2SAT 99; BMI 39.7
== END 2023-09-08 12:17 | disposition home or self-care (01) ==
PROVIDERS: PCP Internal Medicine; Visit Provider Physician Assistant Surgical
DX: E66.9 Obesity, unspecified (principal); Z68.39 Body mass index [BMI] 39.0-39.9, adult
CPT/HCPCS: 99215

== ENCOUNTER → 2023-09-08 11:02 | Outpatient (BNVA) | payer OTHER, SELFPAY | PROVIDERS: PCP Internal Medicine; Visit Provider Physician Assistant Surgical | DX: E66.9 Obesity, unspecified (principal); K59.00 Constipation, unspecified; Z68.39 Body mass index [BMI] 39.0-39.9, adult | CPT/HCPCS: 99212 ==

== ENCOUNTER 2023-09-12 09:30 | Outpatient (REF) | payer OTHER, SELFPAY ==
--- NOTE | ~2023-09-12 | FL_ITS ---
EXAMINATION: XR FLUOROSCOPY UPPER GI WITH AIR CLINICAL INFORMATION: Morbid/severe obesity due to excess calories. COMPARISON: None available. TECHNIQUE: Routine upper GI air-contrast study was performed in upright and lying position. FINDINGS: Following oral administration of thick barium and effervescent granules is normal propagation of bolus from the oral cavity through the pharynx, esophagus into stomach without any evidence of obstruction, narrowing or stricture. On placing patient supine and prone lying the course, caliber and peristalsis of the stomach, duodenal bulb and the sweep is normal. There is a large gastroesophageal reflux without hiatal hernia. The mucosal pattern of esophagus, stomach and the duodenum is normal. FLUOROSCOPY TIME: 1 minute and 31 seconds DOSE AREA PRODUCT: 83.92 uGy-m2 (microgray-meter squared) FL/FL upper GI w air IMPRESSION: Large gastroesophageal reflux without hiatal hernia. Unremarkable upper GI air-contrast study.
== END 2023-09-12 09:31 | disposition home or self-care (01) ==
LOC: HO.XRAY 09:30
PROVIDERS: PCP Internal Medicine; Visit Provider Physician Assistant Surgical
DX: E66.01 Morbid (severe) obesity due to excess calories (principal)
CPT/HCPCS: 74246

== ENCOUNTER → 2023-09-12 09:31 | Outpatient (BNV) | payer OTHER, SELFPAY | PROVIDERS: PCP Internal Medicine; Visit Provider Radiology Diagnostic Radiology | DX: E66.01 Morbid (severe) obesity due to excess calories (principal); K21.9 Gastro-esophageal reflux disease without esophagitis | CPT/HCPCS: 74246 ==

== ENCOUNTER 2023-09-24 10:00 | Outpatient (AMB) | payer OTHER, SELFPAY ==
--- NOTE | 2023-09-24 10:24 | A.OFFWM_ITS ---
Intake Intake Visit Reasons: VIDEO BH F/U Allergies No Known Allergies Allergy (Verified 09/08/23 11:27) [facility] Surgical History Hx of section Family History Mother Anemia Son No problems noted. Son No problems noted. Daughter No problems noted. Social History Alcohol intake: never Patient Tobacco Use Status: Never used Tobacco Behavioral Health Assessment Weight Management Therapy Therapy Notes Details Pt presents for a f/up. Pt reports she is doing better since our last appointment. She's following meal plan as prescribed. PT shared current meds and changes she had recently has been benefitial for her mental health and overall functioning. Since using Prasozin she's sleeping better and feeling less stresses/anxious during the day. MEDICATION LIST NEW Prazosin 5Mg 1 at bedtime Venlafaxine 150Mg 1 at day Lorazepan 0.5mg 1 tab as needed. INTERVENTIONS: Active listening. Processed challenges, needs and progress. Used CBT. We worked on strategies to implement problem-solving approach and manage each worry/problem at the time instead of focus on these as worries and get more anxious, the goal is for her to transform triggers into needs and create a plan to overcome/cope better with these. Completed PHQ-9 RESPONSE: Pt engaged and active. Mental status exam within normal limits. Pt responded well to interventions. PLAN: Pt will be seen again post-surgery. Presenting Concerns Referral Source P provider. Sees Gallito SCHNEIDER. Reason for referral Completion of behavioral health assessment as part of process for weight-loss surgery. Precipitating Event Medical issues Medications Is the patient compliant with medications? Yes Does the patient have Lauar Guardian in place? Not applicable Does the patient use complimentary health approaches? No Questionnaires PHQ-9 Over the last 2 weeks, how often have you been bothered by any of the following problems? 1. Little interest or pleasure in doing things: not at all 2. Feeling down, depressed, or hopeless: not at all 3. Trouble falling or staying asleep, or sleeping too much: not at all 4. Feeling tired or having little energy: not at all 5. Poor appetite or overeating: not at all 6. Feeling bad about yourself - or that you are a failure or have let yourself or your family down: not at all 7. Trouble concentrating on things, such as reading the newspaper or watching television: not at all 8. Moving or speaking so slowly that other people could have noticed. Or the opposite - being so fidgety or restless that you have been moving around a lot more than usual: not at all 9. Thoughts that you would be better off or of hurting yourself in some way: not at all Total score: 0 Depression Screening Interpretation: Negative Depression Screening Done: Yes Source: Developed by Drs. Navjot Leyva, Hafsa Dumont, Rudi Ochoa and colleagues, with an educational sagar from [employer]. Assessment & Plan Assessment & Plan (1) Anxiety: Code(s): F41.9 - Anxiety disorder, unspecified (2) Depression: Code(s): F32.A - Depression, unspecified (3) Nightmares: Code(s): F51.5 - Nightmare disorder Plan Pt has been cleared from BH standpoint and will not require more sessions with me as she sees a therapist on a weekly basis. However, she will be seen by me again post-surgery to support with possible challenges that might arise. Pt has been advised of post-op resources and post-op groups to participate and have a successful long-term weight loss journey. Telehealth Telehealth Location of provider rendering services: other (home office. [place], [place] Location of patient: address on file Patient Identification confirmed using: Name, : Yes Telehealth method: video Patient verbally consented to treatment: Yes Patient verbally consented to billing insurance company: Yes Patient informed of any privacy concerns related to visit: Yes Minutes spent on Phone/Video with Pt.: 45 Coding Level of Care Code Established Pt Tele Psytx 45 mins (02916) Patient Type Established Diagnoses Anxiety F41.9 Depression F32.A Nightmares F51.5 Time Spent (min) 45
== END 2023-09-24 11:00 | disposition home or self-care (01) ==
LOC: HO.HBST 10:25
PROVIDERS: PCP Internal Medicine; Visit Provider Counselor Mental Health
DX: F41.9 Anxiety disorder, unspecified (principal); F32.A Depression, unspecified; F51.5 Nightmare disorder
CPT/HCPCS: 90834

== ENCOUNTER → 2023-09-24 10:00 | Outpatient (BNVA) | payer OTHER, SELFPAY | PROVIDERS: PCP Internal Medicine; Visit Provider Counselor Mental Health ==

== ENCOUNTER 2023-10-08 10:55 | Outpatient (AMB) | payer OTHER, SELFPAY ==
--- NOTE | 2023-10-08 11:04 | A.OFFVIS_ITS ---
Intake VS Expanded 10/08/23 11:08 BP 133/63 Blood Pressure Location Rt brachial Blood Pressure Position Sitting Pulse 86 Pulse Source Pulse Oximeter Temp 96.5 F L Temperature Source Temporal Artery Scan Pulse Oximetry 100 Oxygen Delivery Method Room Air Height 5 ft 4 in Weight 225 lb BMI 38.6 Body Fat % 48.4 Body Fat Mass 109.2 Fat Free Mass 116.2 Visceral Fat Rating 11.0 Body Water % 37.2 Body Water Mass 83.8 Muscle Mass/Score 110.2 Basal Metabolic Rate/Score 1,705 Intake Visit Reasons: (OV) F/U SWL Allergies No Known Allergies Allergy (Verified 10/08/23 11:04) HPI HPI Comments History of Present Illness Details The patient is a pleasant 23 year old female who returns to the clinic for pre-operative surgical weight loss management. They were last seen in the office on 09/08/23, recorded weight at that time was 231.4 pounds, with a BMI of 39.7. Today's weight is 225.4 pounds and BMI is 38.7. There has been a weight loss of 19 pounds since initiating the surgical weight loss program on 05/02/23 with a total body weight loss of 7.7 %. Pre op work up completed as follows: SWL classes:? 07/01 BH appts: cleared- 09/24/23 ? ? RD appts: cleared-07/07/23 Labs: 07/10/23-mild iron def anemia, , low D, B1 H. pylori: 06/18/23-neg CXR: 07/10/23-nad EK07/10/23-normal ABD U/S: 08/05/23-min fatty liver UGI: 09/12/23-gerd The patient reports she has been following the meal plan exactly after changing to celebrate rebuild as the premier protein was not settling in her stomach. Constipation resolved. Current meal plan includes: 2 Celebrate Rebuild, (1 scoop in 8 oz lo w fat unsweetened almond milk) First shake at 8am-10am 1 bar [employer] 11-1 pm Second shake at 2pm-4 pm Dinner at 4pm (8 forks of protein and 8 forks of salad/vegetables). Drinking 40 oz of water Current exercise plan includes: treadmill 7 days per week, 60-80 minutes, speed 5 incline 5, machine cannot track calories. PFSH Surgical History Hx of section Family History Mother Anemia Son No problems noted. Son No problems noted. Daughter No problems noted. Social History Alcohol intake: never Patient Tobacco Use Status: Never used Tobacco Physical Exam Vital Signs: Last Vital Signs Temp 96.5 F L 10/08/23 11:08 Pulse 86 10/08/23 11:08 BP 133/63 10/08/23 11:08 Pulse Ox 100 10/08/23 11:08 Oxygen Delivery Method Room Air 10/08/23 11:08 BMI result Body Mass Index 38.6 Const General: healthy appearing and no acute distress Resp Effort & Inspection: normal respiratory effort Auscultation: clear to auscultation bilaterally Cardio Rate: regular rate Rhythm: regular rhythm GI Auscultation: normal bowel sounds Extrem General: Yes normal to inspection Assessment & Plan Assessment & Plan (1) Obesity (BMI 30-39.9): Code(s): E66.9 - Obesity, unspecified Plan: The patient is doing very well. She did change her protein shake to celebrate rebuild and has done very well with this. She is following the meal plan exactly. She has been communicating, completed preoperative testing, and I will now refer her to Dr. Hercules for continued preoperative planning. Continue current meal plan and exercise plan. Coding Level of Care Code Est Pt Level 3 (07152) Diagnoses Obesity (BMI 30-39.9) E66.9
[2023-10-08 11:08] VITALS: BP 133/63; PULSE 86; TEMP 35.8; O2SAT 100; BMI 38.6
== END 2023-10-08 11:34 | disposition home or self-care (01) ==
PROVIDERS: PCP Internal Medicine; Visit Provider Physician Assistant Surgical
DX: E66.9 Obesity, unspecified (principal); Z68.38 Body mass index [BMI] 38.0-38.9, adult
CPT/HCPCS: 99213

== ENCOUNTER → 2023-10-08 10:55 | Outpatient (BNVA) | payer OTHER, SELFPAY | PROVIDERS: PCP Internal Medicine; Visit Provider Physician Assistant Surgical | DX: E66.9 Obesity, unspecified (principal); Z68.38 Body mass index [BMI] 38.0-38.9, adult | CPT/HCPCS: 99212 ==

== ENCOUNTER 2023-10-09 09:13 | Outpatient (AMB) | payer OTHER, SELFPAY ==
--- NOTE | 2023-10-09 09:17 | A.OFFVIS_ITS ---
Intake VS Expanded 10/09/23 09:22 BP 123/61 Blood Pressure Location Rt brachial Blood Pressure Position Sitting Pulse 70 Pulse Source Pulse Oximeter Temp 97.9 F Temperature Source Temporal Artery Scan Pulse Oximetry 100 Oxygen Delivery Method Room Air Intake Visit Reasons: (OV) F/U SWL transfer from [facility] Sandwich Machine Operator Required: Yes Sandwich Machine Operator Name: Trena Information Interpreted: clinical only Jewelry Dipper: Jewelry Dipper Present Allergies No Known Allergies Allergy (Verified 10/09/23 09:22) HPI HPI Comments History of Present Illness Details The patient is a pleasant 23 year old female who returns to the clinic for pre-operative surgical weight loss management. They were last seen in the office on 09/08/23, recorded weight at that time was 231.4 pounds, with a BMI of 39.7. Today's weight is 225.4 pounds and BMI is 38.7. There has been a weight loss of 19 pounds since initiating the surgical weight loss program on 05/02/23 with a total body weight loss of 7.7 %. The patient is seen today and notes a history of anemia going back to childhood of unclear causes. The patient reports that she currently has an IUD. Patient states that she has been worked up for anemia to a limited extent but also notes that she was told by her primary care provider in [facility] she has an increased risk for deep vein thrombosis. Patient notes that they sent her letters an even sent to person to her house to warn her of this risk, but she is not aware of ever being placed on anticoagulants and denies any history of DVT or PE. Patient notes that she has never seen a public area supervisor regarding her anemia and is unsure what workup has been done. She verbally consented to allow communication with her PCP given the importance of increased risk for DVT/PE since this can be fatal. We also discussed the possibility that any bariatric operation can worsen her anemia requiring IV iron transfusions and blood transfusions, but the patient notes that she has been having these done in her past since childhood. Pre op work up completed as follows: SWL classes:? 07/01 BH appts: cleared- 09/24/23 ? ? RD appts: cleared-07/07/23 Labs: 07/10/23-mild iron def anemia, , low D, B1 H. pylori: 06/18/23-neg CXR: 07/10/23-nad EK07/10/23-normal ABD U/S: 08/05/23-min fatty liver UGI: 09/12/23-gerd The patient reports she has been following the meal plan exactly after changing to celebrate rebuild as the premier protein was not settling in her stomach. Constipation resolved. Current meal plan includes: 2 Celebrate Rebuild, (1 scoop in 8 oz lo w fat unsweetened almond milk) First shake at 8am-10am 1 bar Quest 11-1 pm Second shake at 2pm-4 pm Dinner at 4pm (8 forks of protein and 8 forks of salad/vegetables). Drinking 40 oz of water She is doing well at the meal plan and exercise. She is congratulated on the healthy lifestyle changes. Current exercise plan includes: treadmill 7 days per week, 60-80 minutes, speed 5 incline 5, machine cannot track calories. PFSH Surgical History Hx of section Family History Mother Anemia Son No problems noted. Son No problems noted. Daughter No problems noted. Social History Alcohol intake: never Patient Tobacco Use Status: Never used Tobacco Review of Systems Const All systems reviewed & are unremarkable except as noted in HPI and below Physical Exam On exam, the patient is in good spirits She has no respiratory distress She is anicteric Her abdomen is obese No lower extremity edema is appreciated on today's visit Results Reviewed Results Reviewed: Labs Hb 10.6 with hypochromic microcytic indices, iron studies show low iron BUN is 6, creatinine 0.59 Hemoglobin A1c 5.4 Vitamin-D, vitamin-A, and vitamin B1 were deficient and been replaced. Were within normal parameters Diagnostic imaging UGI no HH Abd U/S Nml shear, NAFLD CXR NAD Assessment & Plan Assessment & Plan (1) Morbid obesity: Code(s): E66.01 - Morbid (severe) obesity due to excess calories (2) Iron deficiency anemia: Code(s): D50.9 - Iron deficiency anemia, unspecified (3) Depression: Code(s): F32.A - Depression, unspecified (4) Anxiety: Code(s): F41.9 - Anxiety disorder, unspecified (5) Obesity (BMI 30-39.9): Code(s): E66.9 - Obesity, unspecified (6) Constipation: Code(s): K59.00 - Constipation, unspecified Plan The patient is congratulated on her ongoing healthy lifestyle changes and weight loss. We reviewed options including medical management and laparoscopic sleeve gastrectomy with the inherent risks of bleeding, DVT/fatal PE, weight regain if maladaptive eating and sedentary behavior resume. We also discussed the possibility that bariatric surgery could increase her anemia requiring iron infusion, but the patient notes that this is been occurring at this point. Patient seemed understand her options and would like to move forward with surgery if it is safe to do so. The patient has increased risk of DVT/PE needs to be evaluated with records from her PCP. It is unclear what workup has been done regarding the patient's anemia; she reports menorrhagia, but does not believe her overedge machine operator his ever expressed concern. No changes were made to the patient's meal plan. She is in agreement to sign papers to obtain records from her doctors at [facility] and come back to see me in 3 weeks for follow-up. She will also follow-up with Gallito Lutz PA-C. Coding Level of Care Code Est Pt Level 4 (87442) Diagnoses Morbid obesity E66.01 Iron deficiency anemia D50.9 Depression F32.A Anxiety F41.9 Obesity (BMI 30-39.9) E66.9 Constipation K59.00
[2023-10-09 09:22] VITALS: BP 123/61; PULSE 70; TEMP 36.6; O2SAT 100
== END 2023-10-09 09:57 | disposition home or self-care (01) ==
PROVIDERS: PCP Internal Medicine; Visit Provider Surgery
DX: E66.01 Morbid (severe) obesity due to excess calories (principal); Z68.38 Body mass index [BMI] 38.0-38.9, adult; F32.A Depression, unspecified; F41.9 Anxiety disorder, unspecified; E66.9 Obesity, unspecified; K59.00 Constipation, unspecified
CPT/HCPCS: 99214

== ENCOUNTER → 2023-10-09 09:13 | Outpatient (BNVA) | payer OTHER, SELFPAY | PROVIDERS: PCP Internal Medicine; Visit Provider Surgery | DX: E66.01 Morbid (severe) obesity due to excess calories (principal); D50.9 Iron deficiency anemia, unspecified; K59.00 Constipation, unspecified; F32.A Depression, unspecified; F41.9 Anxiety disorder, unspecified | CPT/HCPCS: 99212 ==

== ENCOUNTER 2023-10-31 10:26 | Outpatient (AMB) | payer OTHER, SELFPAY ==
--- NOTE | 2023-10-31 10:29 | A.OFFVIS_ITS ---
Intake VS Expanded 10/31/23 10:39 BP 116/57 L Blood Pressure Location Lt brachial Blood Pressure Position Sitting Pulse 87 Pulse Source Pulse Oximeter Temp 97 F Temperature Source Temporal Artery Scan Pulse Oximetry 99 Oxygen Delivery Method Room Air Height 5 ft 4 in Weight 227 lb BMI 39.0 Body Fat % 46.5 Body Fat Mass 105.4 Fat Free Mass 121.4 Visceral Fat Rating 10.0 Body Water % 38.5 Body Water Mass 87.4 Muscle Mass/Score 115.4 Basal Metabolic Rate/Score 1,764 Intake Visit Reasons: (OV) F/U SWL Intake Note: Patient is seen in office for follow up visit, following SWL. Inspector Watch Parts Required: Yes Inspector Watch Parts Language: Ceramic Tile Installer Name: Lidia RAI Information Interpreted: non-clinical & clinical Cone Trucker: Cone Trucker Present Accompanied by: Self / Same As Patient Allergies No Known Allergies Allergy (Verified 10/31/23 10:39) Medication List - Last Reconciled 10/31/23 by WYATT Martinez bisacodyl (Dulcolax (bisacodyl)) 10 mg KS DAILY PRN cholecalciferol (vitamin D3) 125 mcg PO DAILY 90 days ferrous sulfate 325 mg PO DAILY sennosides (senna) 17.2 mg (2 x 8.6 mg) PO BEDTIME PRN 90 days thiamine HCl (vitamin B1) 100 mg PO DAILY 90 days vitamin A 4,800 mcg (2 x 2,400 mcg) PO DAILY 90 days HPI HPI Comments History of Present Illness Details The patient is a pleasant 23 year old female who returns to the clinic for pre-operative surgical weight loss management. They were last seen in the office on 10/08/2023, recorded weight at that time was 225 pounds, with a BMI of 38.6. Today's weight is 227 pounds and BMI is 39. There has been a weigh 17.4 t loss of [] pounds since initiating the surgical weight loss program on 05/02/2023 with a total body weight loss of 7.1 %. Pre op work up completed as follows: SWL classes:? 07/01 BH appts: cleared- 09/24/23 ? ? RD appts: cleared-07/07/23 Labs: 07/10/23-mild iron def anemia, , low D, B1 H. pylori: 06/18/23-neg CXR: 07/10/23-nad EK07/10/23-normal ABD U/S: 08/05/23-min fatty liver UGI: 09/12/23-gerd The patient reports she has been following the meal plan exactly after changing to celebrate rebuild as the premier protein was not settling in her stomach. Constipation resolved. Patient states that she has been worked up for anemia to a limited extent but also notes that she was told by her primary care provider in [facility] she has an increased risk for deep vein thrombosis. Patient notes that they sent her letters an even sent to person to her house to warn her of this risk, but she is not aware of ever being placed on anticoagulants and denies any history of DVT or PE. Despite multiple requests, notes have not yet been received. While she herself denies any known history of blood clots, she states that her mother has had 3 blood clots in her left leg, 1 approximately 7 years ago, 1 approximately 5 years ago, and 1 approximately 1 year ago. The patient herself texted her mother in front of me and mother states she has Factor V Leiden deficiency. The patient has three children, 1 CS, 2 vaginal . Blood transfusion during the second for anemia of 6. Since the of her last child 3 years ago she had blood work for her anemia from her PCP and then the police showed up at her house and told her she needed to go to the hospital, [facility], (approximately january 2022), she had LE US and Chest CT, all negative for thrombus. She has not been following the meal plan over the last 2 weeks as she was taking care of her sick daughter. Current meal plan includes: 2 Celebrate Rebuild, (1 scoop in 8 oz lo w fat unsweetened almond milk) First shake at 8am-10am 1 bar Quest 11-1 pm Second shake at 2pm-4 pm Dinner at 4pm (8 forks of protein and 8 forks of salad/vegetables). Drinking 64-96 oz of water Current exercise plan includes: none in the last 2 weeks as her daughter has been sick with asthma, treadmill 7 days per week, 60-80 minutes, speed 5 incline 5, machine cannot track calories. [facility] Surgical History Hx of section Family History Mother Anemia Factor 5 Leiden mutation, heterozygous Son No problems noted. Son No problems noted. Daughter No problems noted. Social History Alcohol intake: never Patient Tobacco Use Status: Never used Tobacco Physical Exam Const General: healthy appearing and no acute distress Resp Effort & Inspection: normal respiratory effort Auscultation: clear to auscultation bilaterally Cardio Rate: regular rate Rhythm: regular rhythm GI Auscultation: normal bowel sounds Extrem General: Yes normal to inspection Assessment & Plan Assessment & Plan (1) Obesity (BMI 30-39.9): Code(s): E66.9 - Obesity, unspecified Plan: Patient's daughter has improved and now she will be able to return to the structured meal plan and exercise plan. She will return to the office in approximately 3-4 weeks. Per patient, her mother has a Factor 5 Leiden mutation. Notes will be requested including any blood work done through her primary care physician for further determination as to risk factor for blood clot during bariatric surgery. I called [facility] at [phone] requesting records from her ultrasound and CT scan as well as blood work performed around June 2020. Coding Level of Care Code Est Pt Level 4 (35326) Diagnoses Obesity (BMI 30-39.9) E66.9 Time Spent (min) 45
[2023-10-31 10:39] VITALS: BP 116/57; PULSE 87; TEMP 36.1; O2SAT 99; BMI 39.0
== END 2023-10-31 11:10 | disposition home or self-care (01) ==
PROVIDERS: PCP Internal Medicine; Visit Provider Physician Assistant Surgical
DX: E66.9 Obesity, unspecified (principal); Z68.39 Body mass index [BMI] 39.0-39.9, adult
CPT/HCPCS: 99214

== ENCOUNTER → 2023-10-31 10:26 | Outpatient (BNVA) | payer OTHER, SELFPAY | PROVIDERS: PCP Internal Medicine; Visit Provider Physician Assistant Surgical | DX: E66.9 Obesity, unspecified (principal); Z68.39 Body mass index [BMI] 39.0-39.9, adult | CPT/HCPCS: 99212 ==

== ENCOUNTER 2023-12-24 15:29 | Outpatient (AMB) | payer OTHER, SELFPAY ==
--- NOTE | 2023-12-24 15:41 | MHC.OFFVISWM ---
Intake VS Expanded 12/24/23 15:49 BP 128/64 Blood Pressure Location Rt brachial Blood Pressure Position Sitting Pulse 82 Pulse Source Pulse Oximeter Temp 97.6 F Temperature Source Temporal Artery Scan Pulse Oximetry 98 Oxygen Delivery Method Room Air Height 5 ft 4 in Weight 229 lb 3.2 oz BMI 39.3 Body Fat % 47.5 Body Fat Mass 109.0 Fat Free Mass 120.2 Visceral Fat Rating 11.0 Body Water % 37.8 Body Water Mass 86.6 Muscle Mass/Score 114.0 Basal Metabolic Rate/Score 1,754 Intake Visit Reasons: (OV) F/U SWL Call Center Team Leader Required: Yes Call Center Team Leader Name: office cmi Allergies No Known Allergies Allergy (Verified 12/24/23 15:45) HPI HPI Comments History of Present Illness Details The patient is a pleasant 23 year old female who returns to the clinic for pre-operative surgical weight loss management. They were last seen in the office on 10/31/2023, recorded weight at that time was 227 pounds, with a BMI of 39. Today's weight is 229.2 pounds and BMI is 39.3. There has been a weight loss of 15.2 pounds since initiating the surgical weight loss program on 05/02/2023 with a total body weight loss of 6.2 %. She states that she was sick with the flu and was unable to do anything for 3 weeks or so. She has now recovered. She has been following the meal plan for approximately 3 days now. Pre op work up completed as follows: SWL classes:? 07/01 BH appts: cleared- 09/24/23 ? ? RD appts: cleared-07/07/23 Labs: 07/10/23-mild iron def anemia, , low D, B1 H. pylori: 06/18/23-neg CXR: 07/10/23-nad EK07/10/23-normal ABD U/S: 08/05/23-min fatty liver UGI: 09/12/23-gerd The patient reports she has been following the meal plan exactly after changing to celebrate rebuild as the premier protein was not settling in her stomach. Constipation resolved. Patient states that she has been worked up for anemia to a limited extent but also notes that she was told by her primary care provider in [facility] she has an increased risk for deep vein thrombosis. Patient notes that they sent her letters an even sent to person to her house to warn her of this risk, but she is not aware of ever being placed on anticoagulants and denies any history of DVT or PE. Records from [facility] reviewed. No clear indication that she has had an hypercoagulable workup. While she herself denies any known history of blood clots, she states that her mother has had 3 blood clots in her left leg, 1 approximately 7 years ago, 1 approximately 5 years ago, and 1 approximately 1 year ago. The patient herself texted her mother in front of me and mother states she has Factor V Leiden deficiency. The patient has three children, 1 CS, 2 vaginal . Blood transfusion during the second for anemia of 6. Since the of her last child 3 years ago she had blood work for her anemia from her PCP and then the police showed up at her house and told her she needed to go to the hospital, [facility], (approximately january 2022), she had LE US and Chest CT, all negative for thrombus. She has not been following the meal plan over the last 2 weeks as she was taking care of her sick daughter. Current meal plan includes: 2 Celebrate Rebuild, (1 scoop in 8 oz low fat unsweetened almond milk) First shake at 8am-10am 1 bar Quest 11-1 pm Second shake at 2pm-4 pm Dinner at 4pm (8 forks of protein and 8 forks of salad/vegetables). Drinking 64-96 oz of water Current exercise plan includes: none in the last month treadmill 7 days per week, 60 minutes, speed 5 incline 5, machine cannot track calories. [facility] Surgical History Hx of section Family History Mother Anemia Factor 5 Leiden mutation, heterozygous Son No problems noted. Son No problems noted. Daughter No problems noted. Social History Alcohol intake: never Patient Tobacco Use Status: Never used Tobacco Physical Exam Const General: healthy appearing and no acute distress Resp Effort & Inspection: normal respiratory effort Auscultation: clear to auscultation bilaterally Cardio Rate: regular rate Rhythm: regular rhythm GI Auscultation: normal bowel sounds Extrem General: Yes normal to inspection Assessment & Plan Assessment & Plan (1) Obesity (BMI 30-39.9): Code(s): E66.9 - Obesity, unspecified Plan: Now that she is recovered from the flu, she will be strictly adhering to the meal plan and exercise plan. Goal is to lose 8 lb in the next month. Return to clinic 1 month. (2) Factor 5 Leiden mutation, heterozygous: Code(s): 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 Plan: Patient has a possible genetic predisposition to hypercoagulable state with her mother being factor 5 Leiden deficiency positive. Will refer to Hematology/Oncology here in the hospital for risk assessment for bariatric surgery. Orders: Referrals Hematology & Oncology Referral 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, E66.9 - Obesity, unspecified Coding Level of Care Code Est Pt Level 3 (49586) Diagnoses Obesity (BMI 30-39.9) E66.9 Factor 5 Leiden mutation, heterozygous D68.51
[2023-12-24 15:49] VITALS: BP 128/64; PULSE 82; TEMP 36.4; O2SAT 98; BMI 39.3
== END 2023-12-24 16:08 | disposition home or self-care (01) ==
PROVIDERS: PCP Internal Medicine; Visit Provider Physician Assistant Surgical
DX: E66.9 Obesity, unspecified (principal); Z68.39 Body mass index [BMI] 39.0-39.9, adult; D68.51 Activated protein C resistance
CPT/HCPCS: 99213

== ENCOUNTER → 2023-12-24 15:29 | Outpatient (BNVA) | payer OTHER, SELFPAY | PROVIDERS: PCP Internal Medicine; Visit Provider Physician Assistant Surgical | DX: E66.9 Obesity, unspecified (principal); Z68.39 Body mass index [BMI] 39.0-39.9, adult; D68.51 Activated protein C resistance | CPT/HCPCS: 99212 ==

== ENCOUNTER 2024-02-06 09:28 | Outpatient (AMB) | payer OTHER, SELFPAY ==
--- NOTE | 2024-02-06 09:31 | MHC.OFFVISWM ---
Intake VS Expanded 02/06/24 09:37 BP 117/59 L Blood Pressure Location Rt brachial Blood Pressure Position Sitting Pulse 80 Pulse Source Pulse Oximeter Temp 97.5 F Temperature Source Tympanic Pulse Oximetry 96 Oxygen Delivery Method Room Air Height 5 ft 4 in Weight 224 lb 12.8 oz BMI 38.6 Body Fat % 47.5 Body Fat Mass 106.8 Fat Free Mass 118.0 Visceral Fat Rating 11.0 Body Water % 37.8 Body Water Mass 84.8 Muscle Mass/Score 112.0 Basal Metabolic Rate/Score 1,723 Intake Visit Reasons: (OV) F/U SWL Cobol Application Developer Required: Yes Cobol Application Developer Name: office cmi Allergies No Known Allergies Allergy (Verified 12/24/23 15:45) Medication List - Last Reconciled 02/06/24 by WYATT Martinez bisacodyl (Dulcolax (bisacodyl)) 10 mg [place] DAILY PRN cholecalciferol (vitamin D3) 125 mcg PO DAILY 90 days ferrous sulfate 325 mg PO DAILY sennosides (senna) 17.2 mg (2 x 8.6 mg) PO BEDTIME PRN 90 days thiamine HCl (vitamin B1) 100 mg PO DAILY 90 days vitamin A 4,800 mcg (2 x 2,400 mcg) PO DAILY 90 days HPI HPI Comments History of Present Illness Details The patient is a pleasant 23 year old female who returns to the clinic for pre-operative surgical weight loss management. They were last seen in the office on 12/24/23, recorded weight at that time was 229.2 pounds, with a BMI of 39.3. Today's weight is 224.8 pounds and BMI is 38.6. There has been a weight loss of 19.6 pounds since initiating the surgical weight loss program on 05/02/2023 with a total body weight loss of 8 %. She has had constipation problems lifelong, using senna but not consistently. Pre op work up completed as follows: SWL classes:? 07/01 BH appts: cleared- 09/24/23 ? ? RD appts: cleared-07/07/23 Labs: 07/10/23-mild iron def anemia, , low D, B1 H. pylori: 06/18/23-neg CXR: 07/10/23-nad EK07/10/23-normal ABD U/S: 08/05/23-min fatty liver UGI: 09/12/23-gerd The patient reports she has been following the meal plan exactly after changing to celebrate rebuild as the premier protein was not settling in her stomach. Constipation resolved. Patient states that she has been worked up for anemia to a limited extent but also notes that she was told by her primary care provider in [facility] she has an increased risk for deep vein thrombosis. Patient notes that they sent her letters an even sent to person to her house to warn her of this risk, but she is not aware of ever being placed on anticoagulants and denies any history of DVT or PE. Records from [facility] reviewed. No clear indication that she has had an hypercoagulable workup. While she herself denies any known history of blood clots, she states that her mother has had 3 blood clots in her left leg, 1 approximately 7 years ago, 1 approximately 5 years ago, and 1 approximately 1 year ago. The patient herself texted her mother in front of me and mother states she has Factor V Leiden deficiency. The patient has three children, 1 CS, 2 vaginal . Blood transfusion during the second for anemia of 6. Since the of her last child 3 years ago she had blood work for her anemia from her PCP and then the police showed up at her house and told her she needed to go to the hospital, [facility], (approximately january 2022), she had LE US and Chest CT, all negative for thrombus. yogurt 10-noon instead of the bars Current meal plan includes: 2 Celebrate Rebuild, (1 scoop in 8 oz low fat unsweetened almond milk) First shake at 8am-10am 1 bar Quest 11-1 pm Second shake at 2pm-4 pm Dinner at 4pm (8 forks of protein and 8 forks of salad/vegetables). Drinking 64-90 oz of water Current exercise plan includes: 7 days per week, 60 minutes, treadmill for 30 minutes and then jump rope, weights or abdominal exercises. speed 5 incline 5, machine cannot track calories. PFSH Surgical History Hx of section Family History Mother Anemia Factor 5 Leiden mutation, heterozygous Son No problems noted. Son No problems noted. Daughter No problems noted. Social History Alcohol intake: never Patient Tobacco Use Status: Never used Tobacco Physical Exam Const General: healthy appearing and no acute distress Resp Effort & Inspection: normal respiratory effort Auscultation: clear to auscultation bilaterally Cardio Rate: regular rate Rhythm: regular rhythm GI Auscultation: normal bowel sounds Extrem General: Yes normal to inspection Assessment & Plan Assessment & Plan (1) Obesity (BMI 30-39.9): Code(s): E66.9 - Obesity, unspecified Plan: change meal plan slightly to account for the change in bar to yogurt 2 Celebrate Rebuild, (1.5 scoops in 8 oz low fat unsweetened almond milk) First shake at 8am-10am romanian yogurt 11-1 pm Second shake at 2pm-4 pm Dinner at 4pm (8 forks of protein and 8 forks of salad/vegetables) Recommend increasing exercise utilizing the treadmill, 45 minutes daily. Her treadmill does not track calories. She may continue to do jump rope and other aerobic activity after. Will refer her to Dr. Plata for continued preoperative care. (2) Factor 5 Leiden mutation, heterozygous: Code(s): 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 Plan: Appointment with Hematology/Oncology for 02/09/2024 at 12:30. Coding Level of Care Code Est Pt Level 3 (41890) Diagnoses Obesity (BMI 30-39.9) E66.9 Factor 5 Leiden mutation, heterozygous D68.51
[2024-02-06 09:37] VITALS: BP 117/59; PULSE 80; TEMP 36.4; O2SAT 96; BMI 38.6
== END 2024-02-06 09:58 | disposition home or self-care (01) ==
PROVIDERS: PCP Internal Medicine; Visit Provider Physician Assistant Surgical
DX: E66.9 Obesity, unspecified (principal); Z68.38 Body mass index [BMI] 38.0-38.9, adult; D68.51 Activated protein C resistance
CPT/HCPCS: 99213

== ENCOUNTER → 2024-02-06 09:28 | Outpatient (BNVA) | payer OTHER, SELFPAY | PROVIDERS: PCP Internal Medicine; Visit Provider Physician Assistant Surgical | DX: E66.9 Obesity, unspecified (principal); Z68.38 Body mass index [BMI] 38.0-38.9, adult; D68.51 Activated protein C resistance | CPT/HCPCS: 99212 ==

== ENCOUNTER → 2024-02-10 10:00 | Outpatient (BNV) | payer OTHER, SELFPAY | PROVIDERS: Referring Provider Physician Assistant Surgical; Visit Provider Internal Medicine | DX: Z83.2 Family history of diseases of the blood and blood-forming organs and certain disorders involving the immune mechanism (principal) | CPT/HCPCS: 99204; 99213 ==

== ENCOUNTER 2024-03-15 08:31 | Outpatient (AMB) | payer OTHER, SELFPAY ==
--- NOTE | 2024-03-15 13:36 | MHC.OFFVISWM ---
VS Expanded 03/15/24 13:46 Height 5 ft 4 in Weight 202 lb 8 oz BMI 34.8 Body Fat % 49.6 Body Fat Mass 100.5 Fat Free Mass 102.2 Visceral Fat Rating 21 Body Water % 34.6 Body Water Mass 70.1 Basal Metabolic Rate/Score 1,485 Intake Visit Reasons: TV Consult/Transfer Gallito *CIRCULATION ANALYST* Allergies No Known Allergies Allergy (Verified 03/15/24 13:36) Medication List - Last Reconciled 03/15/24 by Leonard Plata MD bisacodyl (Dulcolax (bisacodyl)) 10 mg SD DAILY PRN cholecalciferol (vitamin D3) 125 mcg PO DAILY 90 days ferrous sulfate 325 mg PO DAILY lorazepam 0.5 mg PO TID PRN prazosin 10 mg PO BEDTIME sennosides (senna) 17.2 mg (2 x 8.6 mg) PO BEDTIME PRN 90 days thiamine HCl (vitamin B1) 100 mg PO DAILY 90 days venlafaxine ER (Effexor XR) 150 mg PO QAM vitamin A 4,800 mcg (2 x 2,400 mcg) PO DAILY 90 days HPI HPI TV Consult/Transfer Gallito *CIRCULATION ANALYST*: Details: Start time: 1.20pm, End time: 2pm ?I spent 35 minutes speaking with the patient on the phone plus an additional 5 minutes reviewing and updating records for a total of 40 minutes HPI Comments Details: Overall weight loss: 41.2lbs, or 16.9% TBWL Is doing 2 Celebrate Rebuild protein shakes (1 scoop in 8oz almond milk), one Celebrate protein bar and one meal (8 forks of meat and 8 forks of salad or vegetables) Exercise: Gym x5/week doing treadmill and weights [facility] Medical History (Updated 03/15/24 @ 13:39 by Leonard Plata MD) Insomnia Surgical History Hx of section Family History Mother Anemia Factor 5 Leiden mutation, heterozygous Son No problems noted. Son No problems noted. Daughter No problems noted. Social History Household Members: Significant Other and Family Alcohol intake: never Patient Tobacco Use Status: Never used Tobacco service: No Current occupational status: employed Telehealth Telehealth Telehealth Platform: Telephone Location of provider rendering services: practice address Location of patient: address on file Patient Identification confirmed using: Name, : Yes Telehealth method: voice only Patient verbally consented to treatment: Yes Patient verbally consented to billing insurance company: Yes Patient informed of any privacy concerns related to visit: Yes Minutes spent on Phone/Video with Pt.: 40 Assessment & Plan Assessment & Plan (1) Obesity (BMI 30-39.9): Code(s): E66.9 - Obesity, unspecified Category: Medical Plan: 1. Plan for lap sleeve gastrectomy including upper GI endoscopy. All tests has been completed and reviewed and the patient is cleared for the surgery. ?If diaphragmatic or ventral hernias are present at time of surgery, these will be repaired laparoscopically as well. Risks and complications were discussed in detail including possible conversion to an open procedure, anastomotic leak, bleeding requiring transfusion, small bowel obstruction, , DVT and pulmonary embolism, cardiac, or pulmonary complications, as chcf complications such as anastomotic ulcer, insufficient weight loss and vitamin deficiencies. I emphasized the importance of close follow-up, adherence to instructions and good communication. So far she has proven to be an excellent communicator and very compliant with all our directions accomplishing a great weight loss. I believe that she is an excellent candidate and she is ready. 2. The patient participated in a structured preoperative lifestyle intervention program supervised by a physician the 8 months preceding the surgical procedure. The lifestyle intervention included a structured nutritional plan with a specific daily protein intake goal, an exercise plan with a 2000 calorie burn weekly goal, weekly behavior modification guidance and completion of eight 1-hour online nutritional classes and passing successfully the corresponding quizzes. Adherence to preoperative care plan was demonstrated by completing an extensive preoperative work-up. Program participation was demonstrated by completing 13 visits with our medical team and by sharing weekly weight measurements weekly for 8 consecutive months via an approved body composition scale. Compliance to the lifestyle intervention was demonstrated by achieving a 41.2lbs weight-loss or 16.89% total body weight loss (TBWL). No medications were used to achieve this weight loss. In our published experience an over 7% preoperative TBWL, achieved by meeting the diet and exercise goals of our program improves surgical outcomes, reduces the potential for surgical complications, and predicts a statistically significant higher weight loss up to 6 years postoperatively. 3. Continue same nutritional plan of 2 Celebrate Rebuild protein shakes (1 scoop in 8oz almond milk), oe Celebrate protein bar and one meal (8 forks of protein and 8 forks of salad or vegetables). 4. Start treadmill with an incline of 4.0 and speed of 3.5. Increase incline by 1 every 3 min to a max incline of 10.0, stay 3min at 10.0 and then return to 4.0 and repeat same steps. Goal is to burn 2000 calories per week on exercise, which means 400 calories 5 days per week. 5. Send me weight measurements weekly on Mondays
[2024-03-15 13:46] VITALS: BMI 34.8
== END 2024-03-15 14:01 | disposition home or self-care (01) ==
LOC: HO.HBS 08:31
PROVIDERS: Visit Provider Surgery
DX: E66.9 Obesity, unspecified (principal)
CPT/HCPCS: 99214

== ENCOUNTER → 2024-03-15 08:31 | Outpatient (BNVA) | payer OTHER, SELFPAY | PROVIDERS: Visit Provider Surgery ==

== ENCOUNTER → 2024-03-26 08:01 | Outpatient (AMB) | payer OTHER, SELFPAY ==
[2024-03-26 11:06] VITALS: BMI 34.8
--- NOTE | 2024-03-26 11:06 | MHC.OFFVISWM ---
VS Expanded 03/26/24 11:06 Height 5 ft 4 in Weight 202 lb 8 oz BMI 34.8 Body Fat % 49.6 Body Fat Mass 100.5 Fat Free Mass 114.8 Visceral Fat Rating 21 Body Water % 34.6 Body Water Mass 70.1 Basal Metabolic Rate/Score 1,485 Intake Visit Reasons: TV Pre Op LSG 04/07/24 Allergies No Known Allergies Allergy (Verified 03/26/24 11:10) Medication List - Last Reconciled 03/26/24 by Leonard Plata MD bisacodyl (Dulcolax (bisacodyl)) 10 mg OR DAILY PRN cholecalciferol (vitamin D3) 125 mcg PO DAILY 90 days ferrous sulfate 325 mg PO DAILY lorazepam 0.5 mg PO TID PRN ondansetron 4 mg PO Q12H pantoprazole 40 mg PO DAILY polyethylene glycol 3350 (Miralax) 17 grams PO DAILY prazosin 10 mg PO BEDTIME sennosides (senna) 17.2 mg (2 x 8.6 mg) PO BEDTIME PRN 90 days sucralfate 10 mL PO BID thiamine HCl (vitamin B1) 100 mg PO DAILY 90 days venlafaxine ER (Effexor XR) 150 mg PO QAM vitamin A 4,800 mcg (2 x 2,400 mcg) PO DAILY 90 days HPI HPI TV Pre Op LSG 04/07/24: Details: Start time: 11.30am, End time: 12pm ?I spent 25 minutes speaking with the patient on the phone plus an additional 5 minutes reviewing and updating records for a total of 30 minutes HPI Comments Details: Overall weight loss: 41.2lbs, or 16.9% TBWL Is doing 2 Celebrate Rebuild protein shakes (1 scoop in 8oz almond milk), one Celebrate protein bar and one meal (8 forks of meat and 8 forks of salad or vegetables) Exercise: Gym x5/week doing treadmill and weights PFSH Medical History (Updated 03/15/24 @ 13:39 by Leonard Plata MD) Insomnia Surgical History Hx of section Family History Mother Anemia Factor 5 Leiden mutation, heterozygous Son No problems noted. Son No problems noted. Daughter No problems noted. Social History Household Members: Significant Other and Family Alcohol intake: never Patient Tobacco Use Status: Never used Tobacco service: No Current occupational status: employed Physical Exam Vital Signs: BMI result Body Mass Index 34.8 Telehealth Telehealth Telehealth Platform: Telephone Location of provider rendering services: practice address Location of patient: address on file Patient Identification confirmed using: Name, : Yes Telehealth method: voice only Patient verbally consented to treatment: Yes Patient verbally consented to billing insurance company: Yes Patient informed of any privacy concerns related to visit: Yes Minutes spent on Phone/Video with Pt.: 30 Assessment & Plan Assessment & Plan (1) Obesity (BMI 30-39.9): Code(s): E66.9 - Obesity, unspecified Category: Medical Plan: 1. Plan for lap sleeve gastrectomy including upper GI endoscopy. All tests has been completed and reviewed and the patient is cleared for the surgery. ?If diaphragmatic or ventral hernias are present at time of surgery, these will be repaired laparoscopically as well. Risks and complications were discussed in detail including possible conversion to an open procedure, anastomotic leak, bleeding requiring transfusion, small bowel obstruction, , DVT and pulmonary embolism, cardiac, or pulmonary complications, as intermediate card tender complications such as anastomotic ulcer, insufficient weight loss and vitamin deficiencies. I emphasized the importance of close follow-up, adherence to instructions and good communication. So far she has proven to be an excellent communicator and very compliant with all our directions accomplishing a great weight loss. I believe that she is an excellent candidate and she is ready. 2. Preop prescriptions were provided and explained the purpose of each one. Need to be purchased preop. Start Pantoprazole now as you get it from the pharmacy, 1 pill per day. Sucralfate and Zofran are for after surgery as needed. 3. Bowel prep: please do 7 packets ?of Miralax mixing each one with a an 8oz glass of water, crystal light, gatorade zero, or propel ?on 04/05/24 and the same amount on 04/06/24. The Miralax you begin with one packet at a time in 8oz water or crystal light, gatorade zero, or propel ?as early in the day as you can and you do them back to back until you finish them. Continue the protein shakes during? the bowel prep. 4. Needs to purchase 1oz medicine cups . 5. Needs to purchase Children's liquid Tylenol for postop pain control. 6. Avoid aspirin, motrin, Advil, Aleve, Ibuprofen, Naproxyn. Tylenol is OK. 7. She needs to purchase the Celebrate 4:1 protein shakes from the hospital's gift shop. 8. Will do basic preop blood work-up any day between Friday03/29/24 and Friday04/02/24 fasting for 12 hours and is scheduled to see the Anesthesiologist prior to the day of surgery. 9. Importance of adherence to postop folllow-up and recommendations was underscored and she understands that. 10. Stop food and bars as of tomorrow 03/27/24 and continue with 4 CELEBRATE REBUILD protein shakes (ONE scoop EACH in 8oz almond milk) at 8am-10am, 11am-1pm, 2pm-4pm, 5pm-7pm AND one more CELEBRATE REBUILD protein shake with ONE scoop in 8oz of almond milk at 8pm-10pm 11. No soups, broths or V8 12. The patient's?medical?history has been reviewed and they are considered low risk for post op DVT and therefore DVT prophylaxis is not considered necessary. Travel after surgery was reviewed. The patient has not disclosed any travel plans during the first 30 days after surgery and they have been advised that within the first 30 days after surgery any bus, plane, train or car travel over 2 hours in duration is contraindicated due to the possibility of developing blood clots from immobility. Any travel, needs to include periods of ambulation of 10 minutes in duration every 2 hours.? Patient was instructed to discuss any plans for travel during this period with their bariatric surgeon.? 13. Please take at the day of surgery the following medications: NONE 14. Stop any control pills and don't use them for one month after surgery 15. Absolutely no smoking or vaping, or marijuana until the surgery and for at least the first 4 weeks. Only nicotine patches are allowed. 16. Send me weight measurements on Friday03/30/24 and then on Friday04/07/24, the day of surgery before you go to the hospital. 17. Avoid any steroids by mouth for any reason. Let me know if someone prescribes them to you20. These instructions supersede anything else you read in the handbook, anything you watched in videos or classes or you were told by any other provider. If there is any conflict, you follow the above instructions Orders: Orders Prothrombin Time INR Today E66.9 - Obesity, unspecified Lipid Panel Today E66.9 - Obesity, unspecified Insulin Today E66.9 - Obesity, unspecified TSH reflex Free T4 Today E66.9 - Obesity, unspecified Type and Screen Today E66.9 - Obesity, unspecified Partial Thromboplastin Time Today E66.9 - Obesity, unspecified C Reactive Protein Today E66.9 - Obesity, unspecified Hemoglobin A1c Today E66.9 - Obesity, unspecified Comprehensive Met. Panel Today E66.9 - Obesity, unspecified Complete Blood Count Auto Diff Today E66.9 - Obesity, unspecified Medications: New pantoprazole 40 mg PO DAILY 90 tabs 0RF K21.9 - Gastro-esophageal reflux disease without esophagitis sucralfate 10 mL PO BID 600 mL 2RF K21.9 - Gastro-esophageal reflux disease without esophagitis ondansetron Only take one every 12 hours as needed if you have nausea 4 mg PO Q12H 20 tabs 0RF nausea and vomiting R11.0 - Nausea polyethylene glycol 3350 (Miralax) Mix each packet with 8oz of water, Crystal light, or Gatorade zero, or Propel and do 7 packets on 04/05/24 and another 7 packets on 04/06/24 17 grams PO DAILY 14 ea 0RF Z01.818 - Encounter for other preprocedural examination
== END ==
PROVIDERS: Visit Provider Surgery
DX: E66.9 Obesity, unspecified (principal)
CPT/HCPCS: 99214

== ENCOUNTER → 2024-03-26 08:01 | Outpatient (BNVA) | payer OTHER, SELFPAY | PROVIDERS: Visit Provider Surgery ==

== ENCOUNTER → 2024-04-02 08:54 | Outpatient (BNVA) | payer OTHER, SELFPAY | PROVIDERS: Visit Provider Physician Assistant Surgical ==

== ENCOUNTER → 2024-04-05 09:08 | Outpatient (BNVA) | payer OTHER, SELFPAY | PROVIDERS: Visit Provider Surgery ==

== ENCOUNTER 2024-04-07 05:57 | Inpatient (IN) | payer OTHER, SELFPAY ==
[2024-03-29 11:40] VITALS: BMI 37.9
[2024-03-31 09:22] LABS: MANUAL DIFF FLAG NO
[2024-03-31 10:03] LABS: INTERNATIONAL NORM RATIO 1.1 (0.9-1.1); Prothrombin Time 12.9 SEC (11.1-13.3)
[2024-03-31 10:05] LABS: Partial Thromboplastin Time 28.8 SEC (26.0-36.8)
[2024-03-31 10:07] LABS: Basophils Percent Auto 0.3 % (0-2); Eosinophils Absolute Auto 0.1 X10*3/uL (0.0-0.4); Eosinophils Percent Auto 0.8 % (0-4); Hematocrit 34.1 % (37.0-47.0); Hemoglobin 10.4 g/dl (12.0-16.0); Imm Gran Abs Auto 0.02 X10*3/uL (0.00-0.03); Imm Gran Pct Auto 0.3 % (0.0-0.4); Lymphocytes Absolute Auto 1.3 X10*3/uL (1.2-4.9); Lymphocytes Percent Auto 19.7 % (20-40); Mean Corpuscular HGB Conc 30.5 g/dl (31.0-35.0); Mean Corpuscular Hemoglobin 23.7 pg (27.0-33.0); Mean Corpuscular Volume 77.7 fL (80.0-98.0); Mean Platelet Volume 11.2 fL (9.4-12.3); Monocytes Absolute Auto 0.5 X10*3/uL (0.1-1.2); Monocytes Percent Auto 6.9 % (2-11); Neutrophils Absolute Auto 4.7 x10*3/uL (2.0-8.3); Platelet Count 254 X10*3/uL (160-400); Red Blood Count 4.39 X10*6/uL (4.20-5.50); Red Cell Distribution Width 14.6 % (11.0-16.0); White Blood Count 6.5 X10*3/uL (4.8-10.8)
[2024-03-31 10:16] LABS: Estimated Average Glucose 111 mg/dL; Hemoglobin A1c % 5.5 % (<6.0)
[2024-03-31 10:44] LABS: Alanine Aminotransferase 14 U/L (0-31); Albumin Level 4.3 g/dL (3.5-5.0); Alkaline Phosphatase 94 U/L (39-117); Anion Gap 15 (12-20); Aspartate Amino Transferase 18 U/L (5-31); Bilirubin Total 0.5 mg/dL (0.0-1.0); Blood Urea Nitrogen 7 mg/dL (9-16); C Reactive Protein 0.81 mg/dL (< or = 0.50); Calcium 9.7 mg/dL (8.4-10.2); Carbon Dioxide 23 mmol/L (22-29); Chloride 105 mmol/L (96-108); Cholesterol 122 mg/dL (<200); Creatinine Clr Calc Pharmacy 178.4; Estimated Glomerular Filt Rate > 60; Glucose Random 80 mg/dL (60-115); HDL Cholesterol 45 mg/dL (>40); LDL Cholesterol Calculated 69 mg/dL (<100); Potassium 3.6 mmol/L (3.3-5.1); Sodium 139 mmol/L (135-145); Total Protein 7.6 g/dL (6.5-8.0); Triglycerides 44 mg/dL (<150)
[2024-03-31 10:52] LABS: Insulin 10 uU/mL (2-29); TSH reflex Free T4 0.43 uIU/mL (0.32-4.0)
--- NOTE | 2024-04-05 14:47 | HO.ANESPROP2 ---
Documented by User: Elvia Monahan NP 04/05/24 14:48 HPI - Anesthesia Eval Consult details Narrative: 24yo F for Gastrectomy Sleeve,EGD,possible diaphragmatic hernia,possible ventral hernia,possible open Factor V PMFSH Active Problems Active Problems: All Active Problems GERD (gastroesophageal reflux disease) (Acute) Family history of thromboembolic disease (Acute) Constipation (Acute) Obesity (BMI 30-39.9) (Acute) Anxiety (Acute) Depression (Acute) Iron deficiency anemia (Acute) Morbid obesity (Acute) Insomnia (Acute) Past Medical History Medical History Anemia Depression GERD (gastroesophageal reflux disease) Hx of transfusion of packed red blood cells Insomnia Family History Family History Mother Anemia Factor 5 Leiden mutation, heterozygous Son No problems noted. Son No problems noted. Daughter No problems noted. Surgical History Surgical History Hx of section Social History Social History Household Members: Significant Other and Family Are you a primary geriatric personal care aide to a significant other at home: No Do you presently have visiting nurse or other home services: No Alcohol intake: never Patient Tobacco Use Status: Never used Tobacco Use of substances other than those prescribed or required for medical reasons: No Have you been hit, kicked, punched, or otherwise hurt by someone within the past year? If so, by whom?: No Are you DNR?: No Advance Directives: No Advance Directives Information Provided: No Advance Directives on File: No Recently lost weight without trying: No Nutrition Risks: No Nutritional Risk Patient : No : No Poor oral hygiene: No service: No Current occupational status: employed Meds Allergies Allergy/AdvReac Type Severity Reaction Status Date / Time No Known Allergies Allergy Verified 03/26/24 11:10 Home Medications ?Medication ?Instructions ?Recorded ?Confirmed ?Last Taken ?Type ferrous sulfate 325 mg (65 mg 325 mg PO DAILY 06/18/23 03/29/24 Unknown History iron) tablet lorazepam 0.5 mg tablet 0.5 mg PO TID PRN anxiety 02/09/24 03/29/24 Unknown History prazosin 5 mg capsule 10 mg PO BEDTIME 02/09/24 03/29/24 Unknown History venlafaxine 150 mg 150 mg PO QAM 02/09/24 03/29/24 Unknown History capsule,extended release 24 hr (Effexor XR) Exam Height,Weight and Vital Signs: Height 5 ft 4 in Weight 100.244 kg Pertinent Lab Results Pertinent Lab Results: Laboratory Tests 03/31/24 09:20 WBC 6.5 RBC 4.39 Hgb 10.4 L Hct 34.1 L MCV 77.7 L MCH 23.7 L MCHC 30.5 L RDW 14.6 Plt Count 254 MPV 11.2 Immature Gran % (Auto) 0.3 Neut % (Auto) 72.0 Lymph % (Auto) 19.7 L [place] % (Auto) 6.9 Eos % (Auto) 0.8 Baso % (Auto) 0.3 Lymph # (Auto) 1.3 [place] # (Auto) 0.5 Eos # (Auto) 0.1 Baso # (Auto) 0.0 Abs Immat Gran (auto) 0.02 Absolute Neuts (auto) 4.7 Absolute Nucleated RBC 0.000 Nucleated RBC % (auto) 0.0 PT 12.9 INR 1.1 APTT 28.8 Sodium 139 Potassium 3.6 Chloride 105 Carbon Dioxide 23 Anion Gap 15 BUN 7 L Creatinine 0.55 Estim Creat Clear Calc 178.4 Estimated GFR > 60 Random Glucose 80 Estimat Average Glucose 111 Hemoglobin A1c % 5.5 Insulin Level 10 Calcium 9.7 Total Bilirubin 0.5 AST 18 ALT 14 Alkaline Phosphatase 94 C-Reactive Protein 0.81 H Total Protein 7.6 Albumin 4.3 Triglycerides 44 Cholesterol 122 LDL Cholesterol, Calc 69 HDL Cholesterol 45 TSH 0.43 Blood Type A Positive Antibody Screen NEGATIVE Narrative Narrative: EKG 2022 Vent. Rate : 067 BPM Atrial Rate : 067 BPM P-R Int : 174 ms QRS Dur : 082 ms QT Int : 392 ms P-R-T Axes : 026 038 008 degrees QTc Int : 414 ms Normal sinus rhythm Normal ECG No previous ECGs available Assessment and Plan Assessment Anesthesia Assessment: Chart Reviewed Documented by User: Tanna Garcia MD 04/07/24 08:33 HPI - Anesthesia Eval Consult details Narrative: 24yo F for EGD, Laparoscopic Sleeve Gastrectomy, possible diaphragmatic hernia repair, possible ventral hernia repair, possible open PMFSH Active Problems Active Problems: All Active Problems GERD (gastroesophageal reflux disease) (Acute) Family history of thromboembolic disease (Acute) Constipation (Acute) Obesity BMI 38.6 Anxiety (Acute) Depression (Acute) Iron deficiency anemia (Acute) Morbid obesity (Acute) Insomnia (Acute) Denies RICHA ? H/o PPH 5 years ago. Received blood transfusion Past Medical History Medical History Anemia Depression GERD (gastroesophageal reflux disease) Hx of transfusion of packed red blood cells Insomnia Family History Family History Mother Anemia Factor 5 Leiden mutation, heterozygous Son No problems noted. Son No problems noted. Daughter No problems noted. Family history of problems with anesthesia: No Surgical History Surgical History Hx of section History of Problems with Anesthesia: No Social History Social History Household Members: Significant Other and Family Are you a primary geriatric personal care aide to a significant other at home: No Do you presently have visiting nurse or other home services: No Alcohol intake: never Patient Tobacco Use Status: Never used Tobacco Use of substances other than those prescribed or required for medical reasons: No Have you been hit, kicked, punched, or otherwise hurt by someone within the past year? If so, by whom?: No Are you DNR?: No Advance Directives: No Advance Directives Information Provided: No Advance Directives on File: No Recently lost weight without trying: No Nutrition Risks: No Nutritional Risk Patient : No : No Poor oral hygiene: No service: No Current occupational status: employed Meds Allergies Allergy/AdvReac Type Severity Reaction Status Date / Time No Known Allergies Allergy Verified 03/26/24 11:10 Home Medications ?Medication ?Instructions ?Recorded ?Confirmed ?Last Taken ?Type ferrous sulfate 325 mg (65 mg 325 mg PO DAILY 06/18/23 03/29/24 Unknown History iron) tablet lorazepam 0.5 mg tablet 0.5 mg PO TID PRN anxiety 02/09/24 03/29/24 Unknown History prazosin 5 mg capsule 10 mg PO BEDTIME 02/09/24 03/29/24 Unknown History venlafaxine 150 mg 150 mg PO QAM 02/09/24 03/29/24 Unknown History capsule,extended release 24 hr (Effexor XR) Exam Height,Weight and Vital Signs: Height 5 ft 4 in Weight 100.244 kg Vital Signs Temp Pulse Resp BP Pulse Ox O2 Del Method 04/07/24 06:24 97.6 F 87 16 115/63 99 Room Air Pertinent Lab Results Pertinent Lab Results: Laboratory Tests 03/31/24 09:20 WBC 6.5 RBC 4.39 Hgb 10.4 L Hct 34.1 L MCV 77.7 L MCH 23.7 L MCHC 30.5 L RDW 14.6 Plt Count 254 MPV 11.2 Immature Gran % (Auto) 0.3 Neut % (Auto) 72.0 Lymph % (Auto) 19.7 L [place] % (Auto) 6.9 Eos % (Auto) 0.8 Baso % (Auto) 0.3 Lymph # (Auto) 1.3 [place] # (Auto) 0.5 Eos # (Auto) 0.1 Baso # (Auto) 0.0 Abs Immat Gran (auto) 0.02 Absolute Neuts (auto) 4.7 Absolute Nucleated RBC 0.000 Nucleated RBC % (auto) 0.0 PT 12.9 INR 1.1 APTT 28.8 Sodium 139 Potassium 3.6 Chloride 105 Carbon Dioxide 23 Anion Gap 15 BUN 7 L Creatinine 0.55 Estim Creat Clear Calc 178.4 Estimated GFR > 60 Random Glucose 80 Estimat Average Glucose 111 Hemoglobin A1c % 5.5 Insulin Level 10 Calcium 9.7 Total Bilirubin 0.5 AST 18 ALT 14 Alkaline Phosphatase 94 C-Reactive Protein 0.81 H Total Protein 7.6 Albumin 4.3 Triglycerides 44 Cholesterol 122 LDL Cholesterol, Calc 69 HDL Cholesterol 45 TSH 0.43 Blood Type A Positive Antibody Screen NEGATIVE Laboratory Results - last 24 hr 04/07/24 06:05 Urine Test NEGATIVE Airway Mallampati Class: II TM Dist: >3cm Neck ROM: Full Loose/Missing/Broken Teeth: No (Denies broken, loose, missing teeth) Heart: RRR Lungs: CTAB Assessment and Plan Assessment Anesthesia Assessment: Anesthesia Plan Discussed and Chart Reviewed Final Anesthetic Review Family History of Problems with Anesthesia: No History of Problems with Anesthesia: No NPO: Yes ASA Class: III Final Preanesthetic Review: No Changes in Pt Med Stat, Meds/Allgs Chart Reviewed, Consent Obtained/Reviewed and Anes Risks/Benef Reviewed Patient Risk: Intermediate Procedure Risk: Intermediate Assessment/Block/Sedation in SS: Assess/Block/Sedation-SS Anesthetic Plan Anesthetic Plan: GA Disposition: Standard PACU and Inp. Admit - Standard Bed
[2024-04-07] VITALS (20 sets, daily range): BP systolic 115–157; BP diastolic 9–95; PULSE 87–112; RESP 16–30; TEMP 36.1–37; O2SAT 97–100; BMI 38.6; BMI 40.9
[2024-04-07] MEDS: Lactated Ringers 1,000 ML 999 ML IV (06:22)
[2024-04-07] MEDS: Aprepitant 32 MG/4.4 ML VIAL IVPUSH (06:22)
[2024-04-07] MEDS: Lactated Ringers 1,000 ML 100 ML IVCONT ×3 (06:22→21:15)
[2024-04-07 06:24] LABS: UPreg QC Valid YES; Urine Pregnancy NEGATIVE (NEGATIVE)
--- NOTE | 2024-04-07 10:21 | PHA.MEDREC ---
Pharmacy Consult ? Medication Reconciliation Pharmacy has completed the medication reconciliation. Reviewed med rec done by nursing
--- NOTE | 2024-04-07 10:30 | PM.DS ---
DS: Providers Provider Date of Service: 04/08/24 Date of admission: 04/07/24 05:57 Primary care physician: Unknown Physician DS: Summary Hospital Course Hospital Course: ADMITTING DIAGNOSIS: obesity, iron def anemia, anxiety, depression, factor V leiden mutation ? DISCHARGE DIAGNOSIS: same, s/p laparoscopic sleeve gastrectomy ? PAST SURGICAL HISTORY: cesarian section ? PROCEDURE: upper endoscopy, laparoscopic sleeve gastrectomy ? DISCHARGE SUMMARY: ? History of Present Illness: ? The patient is a?24 year-old woman with a BMI of?41.4 kg/m2 and associated co-morbidities as described above. The patient had extensive work-up,lost?21 lbs preoperatively and was electively scheduled for laparoscopic, possible open sleeve gastrectomy and gastropexy. Risks and complications of the surgery were discussed with the patient in advance, particularly the possibility of , pulmonary embolism, anastomotic leak, bleeding, bowel injury, GERD, cardiac, renal or pulmonary complications. The patient understood all the risks and was in agreement with the surgical plan. ? Hospital Course: ? The patient underwent an uneventful laparoscopic sleeve gastrectomy with gastropexy on the day of admission. Postoperatively, the patient was transferred to the surgical floor. The patient received IV Acetaminophen and IV dilaudid for pain control. Patient was started on bariatric phase 1 diet POD #0. On postoperative day one, the patient was feeling well without nausea, vomiting, fevers, or tachycardia. The patient had some mild incisional pain and the abdomen was soft. ? On the morning of postoperative day one, the patient was continued on 1 ounce of water or ice every half hour. During the day, the patient did fairly well, having some incisional pain, but able to ambulate adequately and to tolerate liquids well. ? Since the patient is doing well, we decided that the patient was ready to be discharged. The patient was given instructions to follow-up with me next week and to call my office for any fever over 101, persistent abdominal pain, nausea, vomiting, GERD, symptoms of DVT such as calf tenderness, or leg swelling, or pulmonary embolism such as chest pain or shortness of breath. The patient was also instructed to drink 40-60 ounces of liquids per day using the 1-ounce cups. The patient had been given prescriptions for Tylenol for pain, Zofran prn for nausea, and pantoprazole and carafate previously. The patient was encouraged to ambulate and use the incentive spirometer. The patient was allowed to shower, but no baths, and encouraged to stay active at home. All of these instructions were given to the patient personally. All questions were answered and the patient understood all instructions, the instructions were also given to the patient in print. Time Attestation Total time managing care of this patient today: 25 mintues. Discharge Coordination Time (in mins): 25 Quality: Safe Use of Opioids Does Pt have an Active Cancer Diagnosis on the Problem List?: No Quality: Stroke Does the patient have a stroke diagnosis?: No Physical Exam Vital Signs: Vital Signs: Last Vital Signs Temp 97.6 F 04/07/24 06:24 Pulse 87 04/07/24 06:24 Resp 16 04/07/24 06:24 BP 115/63 04/07/24 06:24 Pulse Ox 99 04/07/24 06:24 O2 Del Method Room Air 04/07/24 06:24 BMI result Body Mass Index 38.6 DS: Data Data Completed and Pending Pending studies at discharge: Pending at discharge 04/07/24 10:01 Surgical [PTH] Routine Labs on day of discharge: Laboratory Results - last 24 hr 04/07/24 06:05 Urine Test NEGATIVE Discharge Plan Discharge Anticipated Discharge Date/Time: 04/08/24 10:00 Patient Disposition: Home, Self-Care Discharge Diagnosis: s/p laparoscopic sleeve gastrectomy Referrals: Physician,Unknown J [Primary Care Provider] - 1 Week Discharge Medications: Continued venlafaxine [Effexor XR] 150 mg capsule,extended release 24hr 150 mg PO QAM lorazepam 0.5 mg tablet 0.5 mg PO TID PRN (Reason: anxiety) bisacodyl [Dulcolax (bisacodyl)] 10 mg suppository 10 mg NE DAILY PRN (Reason: constipation) Qty: 12 0RF pantoprazole 40 mg tablet,delayed release (DR/EC) 40 mg PO DAILY Qty: 90 0RF sucralfate 100 mg/mL suspension 10 ml PO BID Qty: 600 2RF ondansetron 4 mg tablet,disintegrating 4 mg PO Q12H Qty: 20 0RF Rx Instructions: Only take one every 12 hours as needed if you have nausea Held prazosin 5 mg capsule 10 mg PO BEDTIME Hold Instructions: until discussed with dr fernando ferrous sulfate 325 mg (65 mg iron) tablet 325 mg PO DAILY Hold Instructions: until discussed with dr fernando Discontinued cholecalciferol (vitamin D3) 125 mcg (5,000 unit) capsule 125 mcg PO DAILY 90 Days Qty: 90 1RF thiamine HCl (vitamin B1) 100 mg tablet 100 mg PO DAILY 90 Days Qty: 90 0RF vitamin A 2,400 mcg capsule 4,800 mcg PO DAILY 90 Days Qty: 180 0RF sennosides [senna] 8.6 mg tablet 17.2 mg PO BEDTIME PRN (Reason: constipation) 90 Days Qty: 180 0RF polyethylene glycol 3350 [Miralax] 17 gram powder in packet 17 g PO DAILY Qty: 14 0RF Rx Instructions: Mix each packet with 8oz of water, Crystal light, or Gatorade zero, or Propel and do 7 packets on 04/05/24 and another 7 packets on 04/06/24 Discharge Orders: Discharge Order (Routine); Ordered 04/08/24 Ordered By: Leonard Fernando Activity on Discharge: No heavy lifting Stand Alone Forms: Patient Portal Discharge page Print Language: [place] Care Plan Goals: weight loss Health Concerns: obesity Plan of Treatment: No tub baths, sex or returning to work until discussed at first post op appointment. No exercise, alcohol, tobacco or illegal drug use. Continue to use incentive spirometer hourly while awake. Walk in home for 5- 10 minutes every 2 hours during the first week. Follow all instructions in the bariatric handbook and call with any questions.Discharge Instructions 1. Please call your doctor or come back to the emergency room should any new symptoms arise. 2. You will receive a courtesy call from [facility] 24-48 hours after discharge. 3. Activity: abstain from alcohol, practice limited stair climbing, no bending, no driving, no exercise, no illicit substances, no lifting, no sex, no tub bath, no work. 4. Diet: continue as discussed with Dr. Fernando. 5. Dressing Change/Wound Care: Your incision is covered by clear bandages and guaze underneath. If the area is tender, you may apply an ice pack for short intervals (no more than 20 minutes on, followed by at least 20 minutes off). Do not apply heat. Do not use creams, lotions, or topical antibiotics unless instructed to do so by your surgeon. These can cause infection or allergic reaction. 6. Call your doctor if: - Your temperature exceeds 101.5 F - You experience excessive pain or swelling - You have an unexpected reaction to medication - You have excessive bleeding - You experience continued vomiting/nausea - Your incision begins to separate - Your incision shows signs of infection such as increased redness, swelling, excessive pain, heat, or drainage (light blood or clear fluid is normal) 7. General instructions: No lifting greater than 5 lbs for 1 week and not more than 20lbs the next 3?weeks. No driving until seen at the office in 5-7 days after surgery. If you do not move your bowels in the next 2 days, please tell?Dr. Fernando. Please walk around your home every hour or two to prevent blood clots from forming in your legs. You do not need to wake from sleeping to walk. Please sleep in a bed or couch to prevent kinking at the hips and knees. Please take your incentive spirometer (your lung career and guidance counselor) home with you and use it for the next few days to prevent pneumonia. You may shower, no hot tubs, baths or swimming pools.?Please follow the post op diet instructions you are?given by Dr Fernando? and text me daily at 5-6pm for an update.?If you have any issues or concerns or questions please communicate this to him via text.? The Celebrate shakes have all of the bariatric vitamins you need if you consume these shakes. If you are drinking other protein shakes, you will need to purchase the Celebrate multivitamins and calcium that are available in the hospital gift shop on the first floor of the main hospital.??Do not take anything without first discussing with Dr Fernando. Please make sure you are consuming at least 40 ounces of fluids per day starting the?day AFTER your discharge from the hospital. Always drink 1-2 ml per minute using the 5ml?syringe. If you drink faster you may experience?bloating,?gas pain, burping, nausea or heartburn. In that case please slow down your pace and use the syringe to?understand better the?proper?pace and volume of drinking. Do not hesitate to contact the office with any questions at . The patient's medical history has been reviewed and they are considered low risk for post op DVT and therefore DVT prophylaxis is not considered necessary. Travel after surgery was reviewed. The patient has not disclosed any travel plans during the first 30 days after surgery and they have been advised that within the first 30 days after surgery any bus, plane, train or car travel over 2 hours in duration is contraindicated due to the possibility of developing blood clots from immobility. Any travel, needs to include periods of ambulation of 10 minutes in duration every 2 hours.? The patient was instructed to discuss any plans for travel during this period with their bariatric surgeon. Assessment: stable s/p laparoscopic sleeve gastrectomy Discharge Date/Time: 04/08/24 11:33
--- NOTE | 2024-04-07 10:45 | P.BOP_ITS ---
Brief Operative Note Date of Service: 04/07/24 Pre-op diagnosis: Severe obesity with comorbidities (see below) Post-op diagnosis: same Procedure: INITIAL PATIENT BMI ON PRESENTATION AT OUR OFFICE: 42kg/m2 LAST BMI BEFORE SURGERY:39.4 kg/m2 COMORBIDITIES: GERD, anxiety, depression, insomnia ?The patient presented to the Weight Management Program with significant obesity that was negatively impacting the patient's comorbidities as listed above.? The program is a phased program with a special focus on preoperative medical weight management to promote substantial weight loss and prepare the patients for the second phase of the program: bariatric surgery. The patient participated in an intensive weekly lifestyle ?intervention and exercise program during which the patient ?has lost between the initial office visit and the last preoperative visit 41.2 lbs, or 16.89% of initial actual body weight. It was deemed appropriate for the patient to now have bariatric surgery. In light of the current Covid-19 pandemic and the well documented strong association of obesity and increased risk of worse outcomes if infected with Covid-19 (REFERENCES: https://pubmed.ncbi.nlm.nih.gov/50428036/ ,? https://pubmed. ncbi.nlm.nih.gov/30359542/ ), any delay in undergoing bariatric surgery may lead to the patient's worsening health condition and increased?risk of more severe Covid-19 disease if infected. In addition a recent?study from [facility] published in [facility] on 11/19/2021 ([email or web address]:/[email or web address]) found that, among patients with obesity, substantial weight loss achieved with surgery was associated with improved outcomes of COVID-19 infection. The findings suggest that obesity can be a modifiable risk factor for the severity of COVID-19 infection. In addition, the patient met the BMI-criteria for bariatric surgery based on the BMI on initial presentation. The patient should not be penalized for achieving such weight loss because ?it is not sustainable long-term without surgical intervention and it was achieved in preparation for bariatric surgery ?under my direction and based on my published research (f [email or web address]).pdf and? https://www.soard.org/article/F9608-7317(90)27837-X/pdf ) ?that a 10% preoperative weight loss improves long-term weight loss after surgery and reduces perioperative complications.? Insurance carriers such as [facility] have endorsed my recommendations ?and have included in their policies criteria to include a 10% preoperative weight loss requirement. PROCEDURE: Esophago-gastroscopy, laparoscopic repair of incarcerated diaphragmatic hernia, laparoscopic lysis of adhesions, laparoscopic sleeve gastrectomy and laparoscopic gastropexy INDICATIONS: This is a 24 year-old female who was electively scheduled for laparoscopic, possibly open sleeve gastrectomy. The risks and complications of the procedure were discussed with the patient in advance, particularly the possibility of ; pulmonary embolism; staple line leak; bleeding; GERD; cardiac, pulmonary, or renal complications; as well as long-term problems such as insufficient weight loss, vitamin deficiency, strictures, or ulcers. The patient understood all the risks, and was in agreement to proceed with surgery. DESCRIPTION OF PROCEDURE: After informed consent was obtained from the patient, the patient was given preoperative antibiotics, and was transferred to the operating room. After successful induction of general anesthesia, pneumatic compression devices were placed on both lower extremities. An upper endoscopy was performed next. The oropharynx and esophagus appeared to be within normal limits. There was no diaphragmatic hernia present consistent with the findings of the preoperative upper GI. The stomach was entered. Then after all fluid and air were suctioned and the stomach was fully decompressed, the scope was withdrawn and secured in the mid esophagus. The patient was then prepped and draped in the usual sterile manner, and abdominal access was established at the right upper quadrant with the Van technique. A 12 mm blunt port was inserted, and the abdomen was insufflated with CO2 to a pressure of 15 mmHg. Under direct visualization, additional ports were placed, specifically two 5 mm Versi-step ports to the left upper quadrant, and a 5 mm Versi-Step port to the right upper quadrant. 1% lidocaine plain was used to infiltrate all port sites as well as all fascia defects. Using the EndoClose suture passer device, I placed a #1 Polysorb tie across the falciform ligament in order to retract it up against the abdominal wall and prevent injury of the ligament with our instruments during the procedure. Following that, the patient was placed in a steep reverse Trendelenburg position. An additional 5 mm port was placed to the right flank for the Mediflex retractor that was used to retract the left lobe of the liver. The gastro-esophageal fat pad was opened with the ultrasonic device (Thunderbeat, Olympus) and the anterior esophagus and hiatus were exposed. The angle of His was opened with the ultrasonic device the fundus of the stomach from any diaphragmatic and splenic attachments. I then opened the gastrocolic ligament between the transverse colon and the greater curvature of the stomach with the ultrasonic device to enter the lesser sac and facilitate the ligation of the short gastric vessels. I started at a mid-point along the greater curvature and using the Thunderbeat, all short mtat aura vessels were divided all the way to the angle of His until the left nena was completely dissected at its entirety. I then divided the gastro-colic ligament distally to a distance of about 3-4 cm proximal to the pylorus. Dissection near the upper pole of the spleen was extremely difficult as a large upper splenic pole vessel was densely adhrerent to the gastric wall and required very tedious and careful dissection to avoid major bleeding. The stomach was then divided transversely with three Endo FLACO-45 purple and two FLACO-60 articulating purple loads using the TheMarkets stapler and loads. Every effort was made that the gastric sleeve had a tubular shape and an even caliber throughout. Once the sleeve resection was completed, the staple line of the gastric sleeve was reinforced with Hemoclips. The resected stomach was retrieved without difficulty from the Van port. A gastropexy was then performed in order to prevent postoperative GERD and partial gastric volvulus. Several interrupted 2.0 Surgidac sutures were placed between the sleeve's staple line and the previously divided greater omentum and gastro-colic ligament using the Endo-Stitch device. ?An upper endoscopy was performed. There was no narrowing at the GE junction. The scope was easily advanced all the way to the pylorus which was clearly visualized. There was no narrowing anywhere and the sleeve's caliber was even throughout. The sleeve's staple line was inspected and there was no evidence of ischemia, bleeding or dehiscence. At that point the gastroscope was withdrawn from the patient?s mouth while we were decompressing the bowel and the stomach from any remaining air. I looked into the lesser sac to see how the sleeve was situating and it was situating well. There was no bleeding from the staple line, spleen, or short gastric vessels. The Mediflex retractor was removed, and the undersurface of the liver was inspected and there was no bleeding. The patient was placed in supine position. I closed the fascial defect of the 12 mm port site with a figure of eight #1 Polysorb suture. Then 30cc Ropivacaine plain with 10 mg of Dexamethasone were used to infiltrate the fascial closure as well as all skin incisions. A total of 6ml of Zynrelef was applied in the Van wound. At this point, the abdomen was deflated, all ports were removed under direct vision, and no bleeding was noted from any of the port sites. The skin incisions were irrigated with saline and were closed with 4-0 absorbable monofilament sutures. Steri-Strips and OpSites were used to cover all incisions. The patient was extubated and was transferred in stable condition to the recovery room for further care. I was present and performed all jiménez parts of the procedure. Mr. Lutz was the director of first impressions. There were no residents to assist with this case. Fernando Plata MD, PhD, FACS Surgeon: Leonard Plata MD Anesthesia: GETA, local and other (TAP block and 6 ml Zynrelef) Was an System Administration Manager used for this Procedure?: Yes System Administration Manager: Gallito Lutz Estimated blood loss (mL): 10 IV fluids (mL): 2,000 Urine output (mL): 0 (No Ramirez to record output) Pathology: other (Stomach) Condition: stable Disposition: PACU
[2024-04-07] MEDS: fentaNYL citrate/PF 100 MCG/2 ML VIAL 25 MCG IVPUSH ×4 (10:50→11:23)
--- NOTE | 2024-04-07 10:51 | P.PNGS_ITS ---
Subjective Subjective Date of Service: 04/08/24 Interval history: Feels well. Mild incisional pain. She is tolerating phase 1 bariatric diet Physical Exam 2 Vital Signs: Vital Signs: Last Vital Signs Temp 98.6 F 04/07/24 10:28 Pulse 100 04/07/24 10:43 Resp 28 H 04/07/24 10:50 BP 148/85 H 04/07/24 10:43 Pulse Ox 98 04/07/24 10:43 O2 Del Method Nasal Cannula wit h Capnography 04/07/24 10:43 O2 Flow Rate 2 04/07/24 10:43 FiO2 44 04/07/24 10:43 BMI result Body Mass Index 38.6 GI: Inspection: Yes normal to inspection, Yes incision (clean, dry and intact) and Yes obesity Palpation (GI): Soft to palpation Extrem: Right lower extremity: normal to inspection (no calf tenderness) L eft lower extremity: normal to inspection (no calf tenderness) Objective Data Active Medications Fentanyl (Fentanyl Citrate/Pf 100 Mcg/2 Ml Vial) 25 mcg IVPUSH Q5M PRN; Protocol PRN Reason: Pain, Moderate(Pain Scale 4-6) Stop: 04/07/24 14:35 Last Admin: 04/07/24 10:50 Dose: 25 mcg Documented By: DANGELElenita Hydromorphone HCl (Hydromorphone Hcl 0.5 Mg/0.5 Ml Syringe) 0.25 mg IVPUSH Q5M PRN; Protocol PRN Reason: Pain, Severe (Pain Scale 7-10) Stop: 04/07/24 14:35 Lactated Ringer's (Lr) 1,000 mls @ 100 mls/hr IVCONT .Q10H THADDEUS Last Admin: 04/07/24 06:22 Dose: 100 mls/hr Documented By: SHARIF Prazosin HCl (Prazosin Hcl 5 Mg Capsule) 10 mg PO BEDTIME THADDEUS; Protocol Venlafaxine HCl (Venlafaxine Hcl Er 150 Mg Cap.Er.24h) 150 mg PO DAILY THADDEUS Labs 04/08/24 05:12 04/08/24 05:12 Labs: Laboratory Results - last 24 hr 04/07/24 06:05 Urine Test NEGATIVE Procedures Date of Service Date of Service: 04/08/24 Progress Note: A&P Assessment and plan (1) Obesity: Status: Acute Assessment and Plan: s/p laparoscopic sleeve gastrectomyand gastropexy Doing well Will check am labs and if OK the patient will be discharged home (2) S/P laparoscopic sleeve gastrectomy: Status: Acute (3) GERD (gastroesophageal reflux disease): Status: Acute (4) Factor 5 Leiden mutation, heterozygous: Status: Ruled-out (5) Anxiety: Status: Acute (6) Depression: Status: Acute (7) Insomnia: Status: Acute Time Spent With Patient Time: Total time managing care of this patient today ____ minutes. Quality Stroke Does the patient have a stroke diagnosis?: No VTE Prior VTE?: No VTE Risk Level:: Surgical - moderate VTE Device Contraindication: N/A - Device Ordered VTE Drug Contraindication: Treatment Not Indicated
[2024-04-07] MEDS: Venlafaxine HCl ER 150 MG CAP.ER.24H PO (12:18)
[2024-04-07 12:32] LABS: Anion Gap 14 (12-20); Blood Urea Nitrogen 7 mg/dL (9-16); Carbon Dioxide 19 mmol/L (22-29); Chloride 109 mmol/L (96-108); Creatinine Clr Calc Pharmacy 162.4; Estimated Glomerular Filt Rate > 60; Glucose Random 162 mg/dL (60-115); Hematocrit 36.3 % (37.0-47.0); Hemoglobin 10.8 g/dl (12.0-16.0); Potassium 3.5 mmol/L (3.3-5.1); Sodium 138 mmol/L (135-145)
[2024-04-07] MEDS: ceFAZolin Sodium/Dextrose,Iso 2 GM/50 ML PIGGYBACK IV (14:03)
[2024-04-07] MEDS: Acetaminophen 1,000 MG/100 ML PIGGYBACK 16.7 MG IV ×2 (14:06→20:13)
[2024-04-07] MEDS: ondansetron HCL 4 MG/2 ML VIAL IVPUSH (17:09)
--- NOTE | 2024-04-07 18:38 | PC.NURSE ---
Pt ambulated in lin twice this shift and is currently sitting up in chair. Taking in phase 1 bariatric diet with some c/o nausea- medicated with IV zofran with good effect.. Voided twice this shift without difficulty. small dressings to upper abdomen CDI
[2024-04-07] MEDS: Famotidine/PF 20 MG/2 ML VIAL IVPUSH (21:10)
[2024-04-07] MEDS: Prazosin HCL 5 MG CAPSULE 10 MG PO (21:11)
[2024-04-08] MEDS: Acetaminophen 1,000 MG/100 ML PIGGYBACK 16.7 MG IV (02:14)
[2024-04-08 03:21] VITALS: BP 121/71; PULSE 92; RESP 18; TEMP 36.3; O2SAT 98
[2024-04-08 05:57] LABS: MANUAL DIFF FLAG NO
[2024-04-08 06:20] LABS: Anion Gap 14 (12-20); Blood Urea Nitrogen 4 mg/dL (9-16); Calcium 9.2 mg/dL (8.4-10.2); Carbon Dioxide 21 mmol/L (22-29); Chloride 108 mmol/L (96-108); Creatinine Clr Calc Pharmacy 189.4; Estimated Glomerular Filt Rate > 60; Glucose Random 109 mg/dL (60-115); Potassium 3.9 mmol/L (3.3-5.1); Sodium 139 mmol/L (135-145)
[2024-04-08 06:28] LABS: Basophils Percent Auto 0.1 % (0-2); Hematocrit 32.5 % (37.0-47.0); Imm Gran Abs Auto 0.04 X10*3/uL (0.00-0.03); Imm Gran Pct Auto 0.5 % (0.0-0.4); Lymphocytes Absolute Auto 0.8 X10*3/uL (1.2-4.9); Lymphocytes Percent Auto 9.8 % (20-40); Mean Corpuscular HGB Conc 30.8 g/dl (31.0-35.0); Mean Corpuscular Hemoglobin 23.6 pg (27.0-33.0); Mean Corpuscular Volume 76.8 fL (80.0-98.0); Mean Platelet Volume 11.5 fL (9.4-12.3); Monocytes Absolute Auto 0.6 X10*3/uL (0.1-1.2); Monocytes Percent Auto 7.7 % (2-11); Neutrophils Absolute Auto 6.7 x10*3/uL (2.0-8.3); Neutrophils Percent Auto 81.9 % (45-73); Platelet Count 270 X10*3/uL (160-400); Red Blood Count 4.23 X10*6/uL (4.20-5.50); Red Cell Distribution Width 14.8 % (11.0-16.0); White Blood Count 8.2 X10*3/uL (4.8-10.8)
[2024-04-08 07:23] VITALS: BP 120/60; PULSE 93; RESP 16; TEMP 36.3; O2SAT 99
--- NOTE | 2024-04-08 08:46 | MHC.CM.PN ---
Patient lives in an apartment with her 3 young children. Functionally independent. Denies use of services or DME. States her PCP is at [facility], but she is unsure of the name. No HCP. CM provided education and offered assistance. Patient declined. DP: Medically cleared for dc home self care. States her car is in the lot and she will transport herself home. RN aware.
--- NOTE | 2024-04-08 09:12 | HO.POSTANES ---
Post Anesthesia Evaluation Post Anesthesia Evaluation Date of Service: 04/08/24 Vital Signs: Vital Signs Temp Pulse Resp BP Pulse Ox O2 Del Method 04/08/24 07:23 97.3 F 93 16 120/60 99 Room Air 04/08/24 03:21 97.4 F 92 18 121/71 98 Room Air Anesthesia: General Endotracheal-GETA Mental Status: Awake Pain Control: Satisfactory Nausea/Vomiting: None Hydration: Adequate Anesthesia-Related Issues: No Anes. Related Issues
[2024-04-08] MEDS: Famotidine/PF 20 MG/2 ML VIAL IVPUSH (10:27)
[2024-04-08] MEDS: Venlafaxine HCl ER 150 MG CAP.ER.24H PO (10:29)
== END 2024-04-08 11:33 | disposition home or self-care (01) | DRG 403 ==
LOC: HO.SSSA 10:32 → HO.S3 11:08
PROVIDERS: Nurse Practitioner; Physician Assistant Surgical; Admitting Provider Surgery; PCP Internal Medicine; Visit Provider Surgery
PROC: 0DB64Z3 Excision of Stomach, Percutaneous Endoscopic Approach, Vertical (ICD-10-PCS; CPT 43845; principal; 2024-04-07 07:30)
DX: E66.01 Morbid (severe) obesity due to excess calories (principal); D50.9 Iron deficiency anemia, unspecified; K21.9 Gastro-esophageal reflux disease without esophagitis; Z68.39 Body mass index [BMI] 39.0-39.9, adult; D68.51 Activated protein C resistance; F41.9 Anxiety disorder, unspecified; F32.A Depression, unspecified; G47.00 Insomnia, unspecified; Z79.899 Other long term (current) drug therapy
CPT/HCPCS: 36415; 80048; 80053; 80061; 81025; 83036; 83525; 84443; 85014; 85018; 85025; 85610; 85730; 86140; 86850; 86900; 86901; 88304; 88305; 88307; 88342; A4649; C9088; C9145; J0131; J0690; J1100; J1170; J2250; J2405; J2704; J2795; J3010; J7120

== ENCOUNTER → 2024-04-07 05:57 | Outpatient (BNV) | payer OTHER, SELFPAY | PROVIDERS: Admitting Provider Surgery; Visit Provider Surgery | DX: E66.9 Obesity, unspecified (principal); Z68.39 Body mass index [BMI] 39.0-39.9, adult; Z90.3 Acquired absence of stomach [part of]; Z98.84 Bariatric surgery status; D68.51 Activated protein C resistance | CPT/HCPCS: 43659; 43775; 99024; 99499 ==

== ENCOUNTER 2024-04-16 11:22 | Outpatient (AMB) | payer OTHER, SELFPAY ==
--- NOTE | 2024-04-16 11:24 | A.OFFVIS_ITS ---
VS Expanded 04/16/24 11:32 BP 119/76 Blood Pressure Location Rt brachial Blood Pressure Position Sitting Pulse 80 Pulse Source Pulse Oximeter Temp 98.0 F Temperature Source Temporal Artery Scan Pulse Oximetry 98 Oxygen Delivery Method Room Air Height 5 ft 4 in Weight 216 lb BMI 37.1 Body Fat % 47.7 Body Fat Mass 103.0 Fat Free Mass 112.8 Visceral Fat Rating 10.0 Body Water % 37.7 Body Water Mass 81.4 Muscle Mass/Score 107.2 Basal Metabolic Rate/Score 1,650 Intake Visit Reasons: (OV) PO LSG 04/07/24 Allergies No Known Allergies Allergy (Verified 04/16/24 11:27) HPI Comments Details: Patient is a 24-year-old female who returns to the office in follow-up. She underwent a sleeve gastrectomy performed on 04/07/2024. Tolerating 3 celebrate 4 in 1 shakes with 1 scoop each. Positive bowel movement, no complaints of pain. PFSH Medical History (Updated 04/10/24 @ 00:03 by Selena Simon) Anemia Depression GERD (gastroesophageal reflux disease) Hx of transfusion of packed red blood cells Insomnia Surgical History (Updated 04/16/24 @ 11:28 by Lenore Bullard CMA) S/P laparoscopic sleeve gastrectomy Hx of section Family History Mother Anemia Factor 5 Leiden mutation, heterozygous Son No problems noted. Son No problems noted. Daughter No problems noted. Social History Household Members: Family Housing: Apartment Are you a primary career based intervention coordinator to a significant other at home: No Do you presently have visiting nurse or other home services: No Alcohol intake: never Patient Tobacco Use Status: Never used Tobacco service: No Current occupational status: employed Physical Exam Vital Signs: Last Vital Signs Temp 98.0 F 04/16/24 11:32 Pulse 80 04/16/24 11:32 BP 119/76 04/16/24 11:32 Pulse Ox 98 04/16/24 11:32 Oxygen Delivery Method Room Air 04/16/24 11:32 BMI result Body Mass Index 37.1 GI Inspection: Yes incision (Clean, dry, intact.) Assessment & Plan Assessment & Plan (1) S/P laparoscopic sleeve gastrectomy: Code(s): Z98.84 - Bariatric surgery status Category: Surgical Plan: POD 9 s/p LSG on 04/07/[address] Plata Weight loss prior to surgery was 21 pounds or 8.7 % TBWL. Original weight on 05/29/2023was 241 pounds and op weight was 220.4 pounds. Be sure to text Dr Plata exactly 1 week after surgery your weight from your home scale so he can adjust your meal plan. Continue meal plan until f/u layne Conti in 2 weeks May shower, no submersion in bath for another week Continue abdominal binder with activity and exercise for the next 2 weeks. Exercise prior to surgery was treadmill and may resume No abdominal exercises for 6 weeks post operatively Will be emailed link to post op video for review Reminded of the pace of drinking, 2 mL per minute, 1 oz/15 min.
[2024-04-16 11:32] VITALS: BP 119/76; PULSE 80; TEMP 36.7; O2SAT 98; BMI 37.1
== END 2024-04-16 12:34 | disposition home or self-care (01) ==
PROVIDERS: Visit Provider Physician Assistant Surgical
DX: Z98.84 Bariatric surgery status (principal)
CPT/HCPCS: 99024

== ENCOUNTER → 2024-04-16 11:22 | Outpatient (BNVA) | payer OTHER, SELFPAY | PROVIDERS: Visit Provider Physician Assistant Surgical | DX: Z48.815 Encounter for surgical aftercare following surgery on the digestive system (principal); Z98.84 Bariatric surgery status | CPT/HCPCS: 99212 ==

== ENCOUNTER 2024-04-21 12:08 | Outpatient (AMB) | payer OTHER, SELFPAY ==
--- NOTE | 2024-04-21 12:32 | MHC.OFFVISWM ---
Intake Visit Reasons: (ov) PO SWL Allergies No Known Allergies Allergy (Verified 04/16/24 11:27) HPI Comments Details: 24-year-old female underwent sleeve gastrectomy on 03/27/2024. Text me this morning with concern over the right to lateral incisions. Had her come into the office for evaluation. She states that approximately 2 days ago the Steri-Strips fell off. She denies any significant pain at the incisions but was concerned with how they looked. PFS Medical History (Updated 04/10/24 @ 00:03 by Selena Simon) Anemia Depression GERD (gastroesophageal reflux disease) Hx of transfusion of packed red blood cells Insomnia Surgical History (Updated 04/16/24 @ 11:28 by Lenore Bullard CMA) S/P laparoscopic sleeve gastrectomy Hx of section Family History Mother Anemia Factor 5 Leiden mutation, heterozygous Son No problems noted. Son No problems noted. Daughter No problems noted. Social History Household Members: Family Housing: Apartment Are you a primary manager respiratory care to a significant other at home: No Do you presently have visiting nurse or other home services: No Alcohol intake: never Patient Tobacco Use Status: Never used Tobacco service: No Current occupational status: employed Physical Exam Skin Other: Two lateral incisions with very small area of spitting suture. No evidence of dehiscence or infection. Assessment & Plan Assessment & Plan (1) S/P laparoscopic sleeve gastrectomy: Code(s): Z98.84 - Bariatric surgery status Category: Surgical Plan: The 2 lateral incisions have a small spitting suture. No evidence of dehiscence. Suture too small to cut. Covered with Band-Aid. Told to do so on a daily basis for another week. Follow-up in office as scheduled. Call with any questions or concerns.
== END 2024-04-21 12:34 | disposition home or self-care (01) ==
PROVIDERS: Visit Provider Physician Assistant Surgical
DX: Z98.84 Bariatric surgery status (principal)
CPT/HCPCS: 99024

== ENCOUNTER → 2024-04-21 12:08 | Outpatient (BNVA) | payer OTHER, SELFPAY | PROVIDERS: Visit Provider Physician Assistant Surgical | DX: Z48.815 Encounter for surgical aftercare following surgery on the digestive system (principal); Z98.84 Bariatric surgery status | CPT/HCPCS: 99212 ==

== ENCOUNTER 2024-04-30 11:38 | Outpatient (AMB) | payer OTHER, SELFPAY ==
--- NOTE | 2024-04-30 11:41 | A.OFFVIS_ITS ---
VS Expanded 04/30/24 11:49 BP 119/52 L Blood Pressure Location Rt brachial Blood Pressure Position Sitting Pulse 81 Pulse Source Pulse Oximeter Temp 97.2 F Temperature Source Tympanic Pulse Oximetry 98 Oxygen Delivery Method Room Air Height 5 ft 4 in Weight 209 lb 6.4 oz BMI 35.9 Body Fat % 47.2 Body Fat Mass 98.8 Fat Free Mass 110.4 Visceral Fat Rating 10.0 Body Water % 38.0 Body Water Mass 79.6 Muscle Mass/Score 105.0 Basal Metabolic Rate/Score 1,614 Intake Visit Reasons: PO LSG 04/07/24(Gallito requested visit with pt) Allergies No Known Allergies Allergy (Verified 04/16/24 11:27) HPI Comments Details: This?a?24?yo female who is s/p LSG without hiatal hernia repair on?04/07/2024. Presents for 3 week post op visit. Weight today is 209.4 pounds, with a BMI of 35.9. There has been a 31.6 pound weight loss,(initial weight 241 pounds) since starting the program on 05/29/2023 reflecting a 13.1 % total body weight loss and a weight loss of 11 pounds since surgery (operative weight 220.4 pounds) reflecting a 4.9 % TBWL since surgery. No complaints of nausea, emesis, abdominal pain or reflux. Reports infrequent but normal bowel movements every 3 days and uses stool softeners regularly. Present meal plan includes: Celebrate 4 in 1 2 scoops in 8 oz almond milk at 8-10, 12-2 Celebrate rebuild 1 scoop in 8 oz almond milk 6-8 Drinking 48 oz fluids daily ? Exercise routine includes: treadmill daily, 150 calories burned daily [facility] Medical History (Updated 04/10/24 @ 00:03 by Background Alfred) Anemia Depression GERD (gastroesophageal reflux disease) Hx of transfusion of packed red blood cells Insomnia Surgical History (Updated 04/16/24 @ 11:28 by Lenore Bullard CMA) S/P laparoscopic sleeve gastrectomy Hx of section Family History Mother Anemia Factor 5 Leiden mutation, heterozygous Son No problems noted. Son No problems noted. Daughter No problems noted. Social History Household Members: Family Housing: Apartment Are you a primary home health aide caregiver to a significant other at home: No Do you presently have visiting nurse or other home services: No Alcohol intake: never Patient Tobacco Use Status: Never used Tobacco service: No Current occupational status: employed Assessment & Plan Assessment & Plan (1) S/P laparoscopic sleeve gastrectomy: Code(s): Z98.84 - Bariatric surgery status Category: Surgical Plan: Change meal plans slightly as she states that she only has reflux at night: Celebrate rebuild 1 scoop 7-9 Celebrate 4 in 1, 2 scoops,10-12, 1-3 Increase water to 32 oz per day. Increase treadmill to 200 calories burned per day. Return to office 2 weeks. Encouraged to text me weekly with her weight and if any problems.
[2024-04-30 11:49] VITALS: BP 119/52; PULSE 81; TEMP 36.2; O2SAT 98; BMI 35.9
== END 2024-04-30 12:12 | disposition home or self-care (01) ==
PROVIDERS: Visit Provider Physician Assistant Surgical
DX: Z98.84 Bariatric surgery status (principal)
CPT/HCPCS: 99024

== ENCOUNTER → 2024-04-30 11:38 | Outpatient (BNVA) | payer OTHER, SELFPAY | PROVIDERS: Visit Provider Physician Assistant Surgical | DX: E66.9 Obesity, unspecified (principal); Z68.35 Body mass index [BMI] 35.0-35.9, adult; Z90.3 Acquired absence of stomach [part of] | CPT/HCPCS: 99212 ==

== ENCOUNTER 2024-05-21 10:00 | Outpatient (AMB) | payer OTHER, SELFPAY ==
--- NOTE | 2024-05-21 10:07 | MHC.OFFVISWM ---
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 Presents for 6 week post op visit. Weight today is 201.4 pounds, with a BMI of 35.9. There has been a 39.6 pound weight loss,(initial weight 241 pounds) since starting the program on 05/29/2023 reflecting a 16.4 % total body weight loss and a weight loss of 19 pounds since surgery (operative weight 220.4 pounds) reflecting a 8.6 % TBWL since surgery. No complaints of nausea, emesis, abdominal pain or reflux. Reports infrequent but normal bowel movements every 3 days and uses stool softeners regularly. She states she is following the meal plan exactly. Present meal plan includes: Celebrate 4 in 1, 2 scoops,7-9, 11-1 celebrate 4 in 1 1 scoop 3-5 Increase water to 32 oz per day. ? Exercise routine includes: treadmill daily, 300 calories burned daily [facility] Medical History (Updated 04/10/24 @ 00:03 by Selena Dakezia) Anemia Depression GERD (gastroesophageal reflux disease) Hx of transfusion of packed red blood cells Insomnia Surgical History (Updated 04/16/24 @ 11:28 by Lenore Bullard CMA) S/P laparoscopic sleeve gastrectomy Hx of section Family History Mother Anemia Factor 5 Leiden mutation, heterozygous Son No problems noted. Son No problems noted. Daughter No problems noted. Social History Household Members: Family Housing: Apartment Are you a primary critical care unit nurse to a significant other at home: No Do you presently have visiting nurse or other home services: No Alcohol intake: never Patient Tobacco Use Status: Never used Tobacco service: No Current occupational status: employed Telehealth Telehealth Telehealth Platform: Telephone Location of provider rendering services: practice address Location of patient: address on file Patient Identification confirmed using: Name, : Yes Telehealth method: voice only Patient verbally consented to treatment: Yes Patient verbally consented to billing insurance company: Yes Patient informed of any privacy concerns related to visit: Yes Minutes spent on Phone/Video with Pt.: 12 Assessment & Plan Assessment & Plan (1) S/P laparoscopic sleeve gastrectomy: Code(s): Z98.84 - Bariatric surgery status Category: Surgical Plan: Patient is following the meal plan as recommended by Dr. Plata. She additionally has increase her exercise. She has satisfied with the meal plan and is willing to continue at this point. She will text me weekly with her weight and with any questions or concerns.
[2024-05-21 10:09] VITALS: BMI 34.5
== END 2024-05-21 10:26 | disposition home or self-care (01) ==
LOC: HO.HBS 10:19
PROVIDERS: Visit Provider Physician Assistant Surgical
DX: Z98.84 Bariatric surgery status (principal)
CPT/HCPCS: 99024

== ENCOUNTER → 2024-05-21 10:00 | Outpatient (BNVA) | payer OTHER, SELFPAY | PROVIDERS: Visit Provider Physician Assistant Surgical | DX: Z48.815 Encounter for surgical aftercare following surgery on the digestive system (principal); Z98.84 Bariatric surgery status | CPT/HCPCS: 99212 ==

== ENCOUNTER 2024-06-23 09:36 | Outpatient (AMB) | payer OTHER, SELFPAY ==
--- NOTE | 2024-06-23 09:40 | A.OFFVIS_ITS ---
VS Expanded 06/23/24 09:48 BP 131/77 Blood Pressure Location Rt brachial Blood Pressure Position Sitting Pulse 106 H Pulse Source Pulse Oximeter Temp 96.9 F Temperature Source Temporal Artery Scan Pulse Oximetry 95 Oxygen Delivery Method Room Air Height 5 ft 4 in Weight 186 lb 12.8 oz BMI 32.1 Body Fat % 43.7 Body Fat Mass 105.2 Fat Free Mass 105.2 Visceral Fat Rating 8.0 Body Water % 40.6 Body Water Mass 75.8 Muscle Mass/Score 99.8 Basal Metabolic Rate/Score 1,521 Intake Visit Reasons: (OV) PO LSG 04/07/24 Allergies No Known Allergies Allergy (Verified 06/23/24 09:45) HPI Comments Details: This?a?24?yo female who is s/p LSG without hiatal hernia repair on?04/07/2024. Presents for 2.5 month post op visit. Weight today is 186.8 pounds, with a BMI of 32.1. There has been a 54.2 pound weight loss,(initial weight 241 pounds) since starting the program on 05/29/2023 reflecting a 22.4 % total body weight loss and a weight loss of 33.6 pounds since surgery (operative weight 220.4 pounds) reflecting a 15.2 % TBWL since surgery. No complaints of nausea, emesis, abdominal pain or reflux. Reports infrequent but normal bowel movements every 3 days and uses stool softeners regularly. She states she is following the meal plan exactly. Has had a few episodes of lightheadedness with positional change. No episodes of syncope. Present meal plan includes: Celebrate 4 in 1, 2 scoops,7-9, 11-1 celebrate rebuild 1 scoop 3-5 Increase water to 32 oz per day. ? Exercise routine includes: treadmill daily, 300 calories burned daily [facility] Medical History (Updated 04/10/24 @ 00:03 by Selena Simon) Anemia Depression GERD (gastroesophageal reflux disease) Hx of transfusion of packed red blood cells Insomnia Surgical History (Updated 04/16/24 @ 11:28 by Lenore Bullard CMA) S/P laparoscopic sleeve gastrectomy Hx of section Family History Mother Anemia Factor 5 Leiden mutation, heterozygous Son No problems noted. Son No problems noted. Daughter No problems noted. Social History Household Members: Family Housing: Apartment Are you a primary neonatal critical care nurse to a significant other at home: No Do you presently have visiting nurse or other home services: No Alcohol intake: never Patient Tobacco Use Status: Never used Tobacco service: No Current occupational status: employed Physical Exam Const General: healthy appearing and no acute distress Resp Effort & Inspection: normal respiratory effort Auscultation: clear to auscultation bilaterally Cardio Rate: regular rate Rhythm: regular rhythm GI Auscultation: normal bowel sounds Extrem General: Yes normal to inspection Assessment & Plan Assessment & Plan (1) S/P laparoscopic sleeve gastrectomy: Code(s): Z98.84 - Bariatric surgery status Category: Surgical Plan: Overall, doing well and making good progress. Encouraged her to have 3 water bottles per day. We will change her meal plan: Celebrate 4 in 1, 2 scoops, x2 Zone perfect protein bar Return to the office in 1 month. Text with any questions or concerns. Text weight weekly
[2024-06-23 09:48] VITALS: BP 131/77; PULSE 106; TEMP 36.1; O2SAT 95; BMI 32.1
== END 2024-06-23 09:59 | disposition home or self-care (01) ==
PROVIDERS: Visit Provider Physician Assistant Surgical
DX: Z98.84 Bariatric surgery status (principal)
CPT/HCPCS: 99024

== ENCOUNTER → 2024-06-23 09:36 | Outpatient (BNVA) | payer OTHER, SELFPAY | PROVIDERS: Visit Provider Physician Assistant Surgical | DX: Z48.815 Encounter for surgical aftercare following surgery on the digestive system (principal); Z98.84 Bariatric surgery status | CPT/HCPCS: 99212 ==

== ENCOUNTER 2024-08-10 16:12 | Emergency (ER) | payer OTHER, SELFPAY ==
--- NOTE | ~2024-08-10 | CT_ITS ---
EXAMINATION: CT ABDOMEN AND PELVIS WITH CONTRAST CLINICAL INFORMATION: Rule out obstruction. Pain. COMPARISON: Abdominal ultrasound dated 08/05/2023 TECHNIQUE: Multidetector volumetric images were obtained from the superior aspect of the liver through the pubic symphysis following administration 85 mL of Omnipaque 350 intravenous contrast. Sagittal and coronal reformatted images were obtained on the technologist's workstation. Oral contrast: No This CT examination was performed using dose optimization techniques as appropriate, variously including the following: *Automated exposure control *Adjustment of mA and/or kV according to patient size (this includes techniques or standardized protocols for targeted exams where dose is matched to indication/reason for exam; i.e. extremities or head) *Use of iterative reconstruction technique DLP: 633 mGy-cm FINDINGS: LUNG BASES: Lung bases are clear. There is a patulous distal esophagus with an air-fluid level, likely due to reflux from the stomach. LIVER, GALLBLADDER, AND BILIARY TREE: The liver is normal in size, shape, and attenuation. No focal hepatic lesion or biliary ductal dilatation is present. The gallbladder is unremarkable with no evidence of radiopaque gallstones, gallbladder wall thickening, or obvious pericholecystic inflammatory changes. PANCREAS: Unremarkable. SPLEEN: Unremarkable. ADRENAL GLANDS: Unremarkable. KIDNEYS AND URETERS: The kidneys are normal in size, shape, and attenuation. No hydronephrosis, hydroureter, or calculi seen. No perinephric stranding. BLADDER: Unremarkable. GASTROINTESTINAL TRACT: Status post gastric sleeve bariatric surgery. Stomach, small bowel, and colon are normal in caliber. Appendix is normal. No vertebral bowel dilatation, wall thickening, or surrounding fat stranding. No intraperitoneal free fluid. ABDOMINAL WALL: No significant hernia is appreciated. There is a band of ill-defined soft tissue attenuation with central fat attenuation extending from the supraumbilical subcutaneous fat to the abdominal wall into the omental fat, likely corresponding to a linear tract of chronic fat necrosis at a site of prior procedural/surgical intervention. LYMPH NODES: Normal. VASCULAR: Unremarkable. PELVIC VISCERA: IUD appears appropriately positioned in the uterus. Uterus is otherwise unremarkable. No prevertebral adnexal lesions. OSSEOUS STRUCTURES: Unremarkable. CT/CT abdomen pelvis w IV con IMPRESSION: 1. No acute intra-abdominal or intrapelvic abnormalities. No evidence of bowel obstruction. 2. Patulous distal esophagus with an air-fluid level, likely due to no gastroesophageal reflux. Fleischner guidelines were followed. Electronically signed by: Fidel Welch MD 08/10/2024 11:12 PM EDT RP
[2024-08-10 17:31] VITALS: BP 110/64; PULSE 89; RESP 18; TEMP 36.8; O2SAT 99; BMI 29.5
--- NOTE | 2024-08-10 17:34 | ED_ITS ---
HPI - Nausea/Vomiting/Diarrhea General Chief complaint: Nausea/Vomiting/Diarrhea Stated complaint: Vomiting/Dizziness Time Seen by Provider: 08/10/24 20:15 Source: patient, RN notes reviewed, old records reviewed and interpreter and translator Mode of arrival: ambulatory Limitations: language barrier History of Present Illness ED Provider: Clara HPI Narrative: 24-year-old female with past medical history significant for GERD, laparoscopic sleeve gastrectomy 4 months ago, anxiety, depression, factor 5 Leiden presents for evaluation of abdominal pain and vomiting. Patient's pediatric procedure was performed by Dr. Leary on 04/07/2024 Her most recent office visit was a month and a half ago and she had no issues at that time.. Today the patient reports 2 weeks of nausea with vomiting and inability to tolerate p.o.. She also reports constipation which she has a history of prior to the surgery She reports not having had a good bowel movement in 3 weeks Her pain today is currently 8/10 The patient was seen by bariatric surgery, Gallito lutz prior to my evaluation in the ED Associated nausea: Yes Related Data Home Medications ?Medication ?Instructions ?Recorded ?Confirmed ferrous sulfate 325 mg (65 mg 325 mg PO DAILY 06/18/23 05/21/24 iron) tablet lorazepam 0.5 mg tablet 0.5 mg PO TID PRN anxiety 02/09/24 05/21/24 prazosin 5 mg capsule 10 mg PO BEDTIME 02/09/24 05/21/24 venlafaxine 150 mg 150 mg PO QAM 02/09/24 05/21/24 capsule,extended release 24 hr (Effexor XR) Previous Rx's ?Medication ?Instructions ?Recorded bisacodyl 10 mg rectal suppository 10 mg ID DAILY PRN constipation 09/08/23 (Dulcolax (bisacodyl)) #12 ea pantoprazole 40 mg tablet,delayed 40 mg PO DAILY #90 tabs 03/26/24 release sucralfate 100 mg/mL oral 10 ml PO BID #600 mL 03/26/24 suspension bisacodyl 10 mg rectal suppository 10 mg ID DAILY PRN constipation 08/11/24 (Gentle Laxative (bisacodyl)) #12 ea Allergies Allergy/AdvReac Type Severity Reaction Status Date / Time No Known Allergies Allergy Verified 08/10/24 17:36 Review of Systems 2 Constitutional: Constitutional: Denies body ache(s), Denies chills and Denies fever(s) Cardiovascular: Cardiovascular: Denies chest pain and Denies dyspnea Respiratory: Respiratory: Denies cough and Denies dyspnea Gastrointestinal: Gastrointestinal: Reports abdominal pain, Reports constipation, Reports nausea and Reports vomiting Musculoskeletal: Musculoskeletal: Denies back pain Integumentary/Breasts: Skin/Breast: Denies rash PMFSH Past Medical History Medical History (Updated 08/10/24 @ 21:23 by Luis Elizabeth) Anemia Depression GERD (gastroesophageal reflux disease) Hx of transfusion of packed red blood cells Insomnia Surgical History (Updated 04/16/24 @ 11:28 by Lenore Bullard CMA) S/P laparoscopic sleeve gastrectomy Hx of section Family History Family History Mother Anemia Factor 5 Leiden mutation, heterozygous Son No problems noted. Son No problems noted. Daughter No problems noted. Social History Social History Household Members: Family Housing: Apartment Are you a primary managed care director to a significant other at home: No Do you presently have visiting nurse or other home services: No Alcohol intake: never Patient Tobacco Use Status: Never used Tobacco Smoked in Last 30 Days: No Use of substances other than those prescribed or required for medical reasons: No Advance Directives: No Advance Directives Information Provided: No Patient : No service: No Current occupational status: employed Physical Exam 2 Vital Signs: Vital Signs: Last Vital Signs Temp 98.4 F 08/10/24 22:59 Pulse 57 08/11/24 00:51 Resp 16 08/11/24 00:51 BP 87/43 L 08/11/24 00:51 Pulse Ox 99 08/11/24 00:51 O2 Del Method Room Air 08/11/24 00:51 BMI result Body Mass Index 29.5 Const: General: healthy appearing, comfortable, no acute distress, alert and awake Nutritional Appearance: well nourished Orientation/consciousness: p atient oriented x3 HEENT: Head: Yes normocephalic and Yes atraumatic Eyes: Eyelids: Yes eyelids normal Conjunctivae: conjunctivae normal S clerae: sclerae normal Corneas: corneas normal Pupils: Equal, round and reactive pupils present EOM: EOMs intact bilaterally Neck: Neck: Yes full ROM Resp: Effort & Inspection: normal respiratory effort, no audible wheezes and not labored GI: Inspection: No distended Palpation (GI): Soft to palpation, not firm, Tenderness to palpation present (GI) (Periumbilical) periumbilically, no guarding and not rigid Skin: General skin exam: elasticity normal Neuro: General: patient oriented x3 Cranial nerves: Yes Equal, round and reactive pupils present and Yes Bilaterally intact EOM present Cognition (Neuro): normal cognition Course Course Course Narrative: This is a Rapid Medical Examination (RME) performed by Leticia Yeager PA-C in triage. Full HPI, ROS, assessment and treatment plan per primary provider in the Main ED. 24 yo female with history of obesity s/p gastric sleeve 04/08/[address] Meza who presents to the ER for evaluation of recurrent N/V x 2 weeks severe acid reflux. she reports fingers and hands are rosa at times. Gallito Lutz's office aware and told her to come into the ER per her report. she states she is not on any medications for acid reflux and was told to drink more water. Plan: lab workup, f/u with bariatrics recs (text is out, pending response) Reevaluation(s) Reevaluation #1: Discussed with Gallito leone, bariatric surgery who agrees with potassium supplementation, feels the patient can safely be discharged with Dulcolax suppository and will follow up in the office. He agrees with CT scan if the patient is unable tolerate any oral intake Time: 21:45 Reevaluation #2: Patient's blood pressure was low at 80 7/43 at 1 point however she was sleeping on her side. When I re-evaluated the patient it was 100/57 without any intervention. The patient is stable for discharge as soon as her potassium is completed Time: 01:52 Medications Administered Discontinued Medications Generic Name Dose Route Start Last Admin Trade Name Freq PRN Reason Stop Dose Admin Potassium Chloride/Sodium Chloride 20 meq in 1,000 mls @ 250 mls/hr 08/10/24 21:15 08/10/24 21:25 Kcl 20 Meq In 0.9 % Sodium Chl IV 08/11/24 01:14 250 mls/hr .Q4H ONE Administration Iohexol 100 ml 08/10/24 21:52 08/10/24 21:52 Iohexol 350 Mg/Ml 100 Ml Infus..Btl IV 08/10/24 21:53 85 ml ONCE ONE Administration Ondansetron HCl 4 mg 08/10/24 21:23 08/10/24 21:54 Ondansetron Hcl 4 Mg/2 Ml Vial IVPUSH 08/10/24 21:24 4 mg ONCE ONE Administration Potassium Chloride 40 meq 08/10/24 21:06 08/10/24 21:19 Potassium Chloride Er 20 Meq Tab.Er.Prt PO 08/10/24 21:07 Not Given ONCE ONE Medical Decision Making Medical Decision Making [facility] Narrative: 24-year-old female presents for evaluation abdominal pain nausea vomiting. She is 4 months status post sleeve gastrectomy performed this facility. Her potassium was noted to be low at 2.7. Will treat with IV and oral potassium. We will consult with pediatric surgery, Gallito lutz. Differential Diagnosis Differential Diagnoses: The differential diagnosis associated with the presentation includes Gastroenteritis Gastritis Peptic ulcer disease Constipation Bowel obstruction Admission/Observation Consideration of admission/observation: Escalation of care including admission/observation considered Consider admission due to hypokalemia Consult Healthcare Provider Management of the patient was discussed with: Aluminum Molder (Bariatric surgery) Lab Data [facility] Lab Attestation statement: I reviewed the patient's lab results. No leukocytosis or significant anemia. Normal platelet count. Sodium is normal at 141, hypokalemia of 2.7 likely related to vomiting. No other significant electrolyte abnormalities 08/10/24 19:43 08/10/24 19:43 Labs: Lab Results 08/10/24 08/10/24 Range/Units 19:43 19:45 WBC 7.6 (4.8-10.8) X10*3/uL RBC 4.81 (4.20-5.50) X10*6/uL Hgb 11.5 L (12.0-16.0) g/dl Hct 37.2 (37.0-47.0) % MCV 77.3 L (80.0-98.0) fL MCH 23.9 L (27.0-33.0) pg MCHC 30.9 L (31.0-35.0) g/dl RDW 14.9 (11.0-16.0) % Plt Count 276 (160-400) X10*3/uL MPV 11.1 (9.4-12.3) fL Immature Gran % (Auto) 0.3 (0.0-0.4) % Neut % (Auto) 71.2 (45-73) % Lymph % (Auto) 20.2 (20-40) % Lander % (Auto) 7.2 (2-11) % Eos % (Auto) 0.8 (0-4) % Baso % (Auto) 0.3 (0-2) % Lymph # (Auto) 1.5 (1.2-4.9) X10*3/uL Lander # (Auto) 0.6 (0.1-1.2) X10*3/uL Eos # (Auto) 0.1 (0.0-0.4) X10*3/uL Baso # (Auto) 0.0 (0.0-0.2) X10*3/uL Abs Immat Gran (auto) 0.02 (0.00-0.03) X10*3/uL Absolute Neuts (auto) 5.4 (2.0-8.3) x10*3/uL Absolute Nucleated RBC 0.000 (0.0-0.012) X10*3/uL Nucleated RBC % (auto) 0.0 (0.0-0.2) /100WBC Sodium 141 (135-145) mmol/L Potassium 2.7 L* D (3.3-5.1) mmol/L Chloride 106 (96-108) mmol/L Carbon Dioxide 24 (22-29) mmol/L Anion Gap 14 (12-20) BUN 5 L (9-16) mg/dL Creatinine 0.56 (0.5-1.4) mg/dL Estim Creat Clear Calc 153.7 Estimated GFR > 60 Random Glucose 80 (60-115) mg/dL Calcium 9.8 D (8.4-10.2) mg/dL Phosphorus 3.2 (2.7-4.5) mg/dL Magnesium 1.9 (1.6-2.6) mg/dL Total Bilirubin 0.4 (0.0-1.0) mg/dL Direct Bilirubin 0.2 (0.0-0.5) mg/dL AST 21 (5-31) U/L ALT 14 (0-31) U/L Alkaline Phosphatase 91 (39-117) U/L Total Protein 7.7 (6.5-8.0) g/dL Albumin 4.3 (3.5-5.0) g/dL Lipase 15 (8-78) U/L Urine Color Dark Yellow Urine Appearance Clear Urine pH 6.5 (5.0-9.0) Ur Specific [place] >= 1.030 H (1.005-1.025) Urine Protein 30 (1+) H (Neg-Trace) mg/dL Urine Glucose (UA) Negative (Negative) mg/dL Urine Ketones >=160 (Negative) mg/dL Urine Blood Negative (Negative) Urine Nitrite Negative (Negative) Ur Leukocyte Esterase Negative (Negative) Urine RBC 0-2 (0-2) /HPF Urine WBC 0-5 (0-5) /HPF Ur Squamous Epith Cells 3-5 (0-2) /HPF Urine Bacteria 3+ (None Seen) Hyaline Casts 0-2 (0-2) /LPF Urine Test NEGATIVE (NEGATIVE) Independent Interpretation I performed an independent interpretation of an: CT Scan Interpretation: Agree with Radiology interpretation Radiology Impression Discussion of test interpretation with radiology: I have reviewed the radiologist's reading. Radiologist Impression: FINDINGS: LUNG BASES: Lung bases are clear. There is a patulous distal esophagus with an air-fluid level, likely due to reflux from the stomach. LIVER, GALLBLADDER, AND BILIARY TREE: The liver is normal in size, shape, and attenuation. No focal hepatic lesion or biliary ductal dilatation is present. The gallbladder is unremarkable with no evidence of radiopaque gallstones, gallbladder wall thickening, or obvious pericholecystic inflammatory changes. PANCREAS: Unremarkable. SPLEEN: Unremarkable. ADRENAL GLANDS: Unremarkable. KIDNEYS AND URETERS: The kidneys are normal in size, shape, and attenuation. No hydronephrosis, hydroureter, or calculi seen. No perinephric stranding. BLADDER: Unremarkable. GASTROINTESTINAL TRACT: Status post gastric sleeve bariatric surgery. Stomach, small bowel, and colon are normal in caliber. Appendix is normal. No vertebral bowel dilatation, wall thickening, or surrounding fat stranding. No intraperitoneal free fluid. ABDOMINAL WALL: No significant hernia is appreciated. There is a band of ill-defined soft tissue attenuation with central fat attenuation extending from the supraumbilical subcutaneous fat to the abdominal wall into the omental fat, likely corresponding to a linear tract of chronic fat necrosis at a site of prior procedural/surgical intervention. LYMPH NODES: Normal. VASCULAR: Unremarkable. PELVIC VISCERA: IUD appears appropriately positioned in the uterus. Uterus is otherwise unremarkable. No prevertebral adnexal lesions. OSSEOUS STRUCTURES: Unremarkable. CT/CT abdomen pelvis w IV con IMPRESSION: 1. No acute intra-abdominal or intrapelvic abnormalities. No evidence of bowel obstruction. 2. Patulous distal esophagus with an air-fluid level, likely due to no gastroesophageal reflux. Discharge Plan Discharge Clinical Impression: Acute hypokalemia, Abdominal pain Patient Disposition: Home, Self-Care Instructions: Hypokalemia (ED), Abdominal Pain (ED) Additional Instructions: Your workup in the ER today showed a low potassium 2.7, this was repleted. Follow-up with bariatric surgery in the office, call tomorrow to schedule an appointment. Your CT scan did not show any evidence of obstruction Prescriptions: New bisacodyl [Gentle Laxative (bisacodyl)] 10 mg suppository 10 mg ID DAILY PRN (Reason: constipation) Qty: 12 0RF No Action venlafaxine [Effexor XR] 150 mg capsule,extended release 24hr 150 mg PO QAM prazosin 5 mg capsule 10 mg PO BEDTIME lorazepam 0.5 mg tablet 0.5 mg PO TID PRN (Reason: anxiety) ferrous sulfate 325 mg (65 mg iron) tablet 325 mg PO DAILY bisacodyl [Dulcolax (bisacodyl)] 10 mg suppository 10 mg ID DAILY PRN (Reason: constipation) Qty: 12 0RF pantoprazole 40 mg tablet,delayed release (DR/EC) 40 mg PO DAILY Qty: 90 0RF sucralfate 100 mg/mL suspension 10 ml PO BID Qty: 600 2RF Print Language: Luxembourgish
[2024-08-10 19:50] VITALS: BP 113/41; PULSE 71; RESP 18; TEMP 37; O2SAT 100
[2024-08-10 19:53] LABS: MANUAL DIFF FLAG NO
[2024-08-10 19:57] LABS: Appearance Urine Clear; Color Urine Dark Yellow; Glucose Urine UA Negative (Negative); Leukocyte Esterase Urine Negative (Negative); Nitrite Urine Negative (Negative); PH 6.5 (5.0-9.0); Specific Gravity - Urine >= 1.030 (1.005-1.025); UMIC TRIGGER UACC YES; Urine Blood Negative (Negative); Urine Ketones >=160 mg/dL (Negative); Urine Protein 30 (1+) mg/dL (Neg-Trace)
[2024-08-10 19:58] LABS: Basophils Percent Auto 0.3 % (0-2); Eosinophils Absolute Auto 0.1 X10*3/uL (0.0-0.4); Eosinophils Percent Auto 0.8 % (0-4); Hematocrit 37.2 % (37.0-47.0); Hemoglobin 11.5 g/dl (12.0-16.0); Imm Gran Abs Auto 0.02 X10*3/uL (0.00-0.03); Imm Gran Pct Auto 0.3 % (0.0-0.4); Lymphocytes Absolute Auto 1.5 X10*3/uL (1.2-4.9); Lymphocytes Percent Auto 20.2 % (20-40); Mean Corpuscular HGB Conc 30.9 g/dl (31.0-35.0); Mean Corpuscular Hemoglobin 23.9 pg (27.0-33.0); Mean Corpuscular Volume 77.3 fL (80.0-98.0); Mean Platelet Volume 11.1 fL (9.4-12.3); Monocytes Absolute Auto 0.6 X10*3/uL (0.1-1.2); Monocytes Percent Auto 7.2 % (2-11); Neutrophils Absolute Auto 5.4 x10*3/uL (2.0-8.3); Neutrophils Percent Auto 71.2 % (45-73); Platelet Count 276 X10*3/uL (160-400); Red Blood Count 4.81 X10*6/uL (4.20-5.50); Red Cell Distribution Width 14.9 % (11.0-16.0); White Blood Count 7.6 X10*3/uL (4.8-10.8)
[2024-08-10 20:00] LABS: Bacteria Urine 3+ (None Seen); Hyaline Casts Urine 0-2 /LPF (0-2); RBC Urine 0-2 /HPF (0-2); WBC Urine 0-5 /HPF (0-5)
[2024-08-10 20:06] LABS: UPreg QC Valid YES; Urine Pregnancy NEGATIVE (NEGATIVE)
[2024-08-10 20:31] LABS: Alanine Aminotransferase 14 U/L (0-31); Albumin Level 4.3 g/dL (3.5-5.0); Alkaline Phosphatase 91 U/L (39-117); Anion Gap 14 (12-20); Aspartate Amino Transferase 21 U/L (5-31); Bilirubin Direct 0.2 mg/dL (0.0-0.5); Bilirubin Total 0.4 mg/dL (0.0-1.0); Blood Urea Nitrogen 5 mg/dL (9-16); Calcium 9.8 mg/dL (8.4-10.2); Carbon Dioxide 24 mmol/L (22-29); Chloride 106 mmol/L (96-108); Creatinine Clr Calc Pharmacy 153.7; Estimated Glomerular Filt Rate > 60; Glucose Random 80 mg/dL (60-115); Lipase 15 U/L (8-78); Magnesium 1.9 mg/dL (1.6-2.6); Phosphorus 3.2 mg/dL (2.7-4.5); Potassium 2.7 mmol/L (3.3-5.1); Sodium 141 mmol/L (135-145); Total Protein 7.7 g/dL (6.5-8.0)
--- NOTE | 2024-08-10 21:22 | ECG_ITS ---
Test Reason : N/V/D Blood Pressure : / mmHG Vent. Rate : 060 BPM Atrial Rate : 060 BPM P-R Int : 170 ms QRS Dur : 082 ms QT Int : 442 ms P-R-T Axes : 019 050 -06 degrees QTc Int : 442 ms Normal sinus rhythm Normal ECG When compared with ECG of 10-JUL-2023 11:00, No significant change was found Referred By: Luis Elizabeth Electronically Signed By:ALICIA WAHL
[2024-08-10] MEDS: KCl 20 mEq in 0.9 % Sodium ChL 20 MEQ/1,000 ML IV.SOLN 250 MEQ IV (21:25)
[2024-08-10] MEDS: iohexoL 350 MG/ML 100 ML INFUS..BTL IV (21:52)
[2024-08-10] MEDS: ondansetron HCL 4 MG/2 ML VIAL IVPUSH (21:54)
--- NOTE | 2024-08-10 21:54 | PC.NURSE ---
ekg delayed, pt in CT scan
[2024-08-10 22:59] VITALS: BP 96/53; PULSE 72; RESP 15; TEMP 36.9; O2SAT 98
[2024-08-11 00:51] VITALS: BP 87/43; PULSE 57; RESP 16; O2SAT 99
[2024-08-11 04:00] VITALS: BP 108/65; PULSE 74; RESP 17; TEMP 36.9; O2SAT 100
[2024-08-11 04:09] VITALS: BP 108/65; PULSE 74; RESP 17; TEMP 36.9; O2SAT 100
== END 2024-08-11 04:09 | disposition home or self-care (01) ==
PROVIDERS: Physician Assistant; Emergency Provider Emergency Medicine
DX: E87.6 Hypokalemia (principal); K21.9 Gastro-esophageal reflux disease without esophagitis; R11.2 Nausea with vomiting, unspecified; R42 Dizziness and giddiness; D68.2 Hereditary deficiency of other clotting factors; Z98.84 Bariatric surgery status; Z79.899 Other long term (current) drug therapy
CPT/HCPCS: 36415; 74177; 80048; 80076; 81001; 81025; 83690; 83735; 84100; 85025; 93005; 96365; 96366; 96375; 99285; J2405; J3480; Q9967

== ENCOUNTER 2024-08-13 13:14 | Outpatient (AMB) | payer OTHER, SELFPAY ==
--- NOTE | 2024-08-13 13:15 | A.OFFVIS_ITS ---
VS Expanded 08/13/24 13:20 BP 116/66 Blood Pressure Location Rt brachial Blood Pressure Position Sitting Pulse 105 H Pulse Source Pulse Oximeter Temp 97.2 F Temperature Source Temporal Artery Scan Pulse Oximetry 95 Oxygen Delivery Method Room Air Height 5 ft 4 in Weight 166 lb 3.2 oz BMI 28.5 Body Fat % 39.3 Body Fat Mass 65.2 Fat Free Mass 100.8 Visceral Fat Rating 6.0 Body Water % 43.7 Body Water Mass 72.6 Muscle Mass/Score 95.6 Basal Metabolic Rate/Score 1,441 Intake Visit Reasons: (OV) PO LSG 04/07/24 Scrum Coach Required: Yes Scrum Coach Services: Scrum Coach Present Scrum Coach Name: # [id number] Allergies No Known Allergies Allergy (Verified 08/10/24 17:36) Medication List - Last Reconciled 08/13/24 by WYATT Martinez bisacodyl (Gentle Laxative (bisacodyl)) 10 mg IA DAILY PRN bisacodyl (Dulcolax (bisacodyl)) 10 mg IA DAILY PRN ferrous sulfate 325 mg PO DAILY lorazepam 0.5 mg PO TID PRN pantoprazole 40 mg PO DAILY prazosin 10 mg PO BEDTIME sucralfate 10 mL PO BID venlafaxine ER (Effexor XR) 150 mg PO QAM HPI Comments Details: This?a?24?yo female who is s/p LSG without hiatal hernia repair on?04/07/2024. Presents for 4 month post op visit. Weight today is 166.2 pounds, with a BMI of 28.5. There has been a 74.8 pound weight loss,(initial weight 241 pounds) since starting the program on 05/29/2023 reflecting a 31 % total body weight loss and a weight loss of 54.2 pounds since surgery (operative weight 220.4 pounds) reflecting a 24.5 % TBWL since surgery. No complaints of nausea, emesis, abdominal pain or reflux. Reports infrequent but normal bowel movements every 3 days and uses stool softeners regularly. She presented to the emergency room on 08/10/2024 with complaints of abdominal pain and constipation of 2 weeks' duration. She was found to have hypokalemia. This was replaced intravenously. CT scan showed no acute abnormality She states that she is doing much better, moved her bowels 2 x. Still has a very little abdominal pain. no vomiting but nausea. Present meal plan includes: 3 celebrate 4 in 1 shakes w 1 scoop each w 8 oz almond milk each, 7-9, 12-2, 4-6 Increase water to 48 oz per day. ? Exercise routine includes: treadmill daily, 1.5 hr daily, speed 5, incline 5-8 PFSH Medical History (Updated 08/12/24 @ 00:00 by Selena Simon) Anemia Depression GERD (gastroesophageal reflux disease) Hx of transfusion of packed red blood cells Insomnia Surgical History (Updated 04/16/24 @ 11:28 by Lenore Bullard CMA) S/P laparoscopic sleeve gastrectomy Hx of section Family History Mother Anemia Factor 5 Leiden mutation, heterozygous Son No problems noted. Son No problems noted. Daughter No problems noted. Social History Household Members: Family Housing: Apartment Are you a primary healthcare administrative assistant to a significant other at home: No Do you presently have visiting nurse or other home services: No Alcohol intake: never Patient Tobacco Use Status: Never used Tobacco service: No Current occupational status: employed Physical Exam Vital Signs: Last Vital Signs Temp 97.2 F 08/13/24 13:20 Pulse 105 H 08/13/24 13:20 BP 116/66 08/13/24 13:20 Pulse Ox 95 08/13/24 13:20 Oxygen Delivery Method Room Air 08/13/24 13:20 BMI result Body Mass Index 28.5 GI Palpation (GI): Soft to palpation and nontender Auscultation: normal bowel sounds Assessment & Plan Assessment & Plan (1) S/P laparoscopic sleeve gastrectomy: Code(s): Z98.84 - Bariatric surgery status Category: Surgical Plan: Patient has had no further vomiting, intermittent nausea with improvement. She has moved her bowels twice. She offers no complaints at today's visit. She does wish to switch protein shakes as she does feel nausea with the protein shakes. She is willing to go back to the shake that she used previously which was celebrate rebuild. She will use 3 celebrate rebuild shakes with 2 scoops each. She will text me early next week. Recommend avoiding any solid foods that she had been eating including potatoes and green beans. Should she tolerate the transition to the celebrate rebuild, we will restart solid foods but with a more balanced meal plan. She is in agreement with this plan. I also encouraged her to stop taking her iron briefly as this certainly is constipating. She is in agreement with this plan as mentioned above and will follow up next week
[2024-08-13 13:20] VITALS: BP 116/66; PULSE 105; TEMP 36.2; O2SAT 95; BMI 28.5
== END 2024-08-13 14:14 | disposition home or self-care (01) ==
LOC: HO.HBS 13:14
PROVIDERS: Visit Provider Physician Assistant Surgical
DX: E66.3 Overweight (principal); Z68.28 Body mass index [BMI] 28.0-28.9, adult; Z90.3 Acquired absence of stomach [part of]; Z98.84 Bariatric surgery status
CPT/HCPCS: 99213

== ENCOUNTER → 2024-08-13 13:14 | Outpatient (BNVA) | payer OTHER, SELFPAY | PROVIDERS: Visit Provider Physician Assistant Surgical | DX: Z98.84 Bariatric surgery status (principal) | CPT/HCPCS: 99212 ==

== ENCOUNTER 2024-09-20 11:29 | Outpatient (AMB) | payer OTHER, SELFPAY ==
--- NOTE | 2024-09-20 11:31 | MHC.OFFVISWM ---
VS Expanded 09/20/24 11:47 BP 117/62 Blood Pressure Location Rt brachial Blood Pressure Position Sitting Pulse 70 Pulse Source Pulse Oximeter Temp 98.4 F Temperature Source Temporal Artery Scan Pulse Oximetry 100 Oxygen Delivery Method Room Air Height 5 ft 4 in Weight 157 lb 6.4 oz BMI 27.0 Body Fat % 36.0 Body Fat Mass 56.6 Fat Free Mass 100.6 Visceral Fat Rating 4.0 Body Water % 46.0 Body Water Mass 72.4 Muscle Mass/Score 95.4 Basal Metabolic Rate/Score 1,424 Intake Visit Reasons: (OV) PO LSG 04/07/24 Carbon Paste Mixer Operator Services: Carbon Paste Mixer Operator Present Carbon Paste Mixer Operator Name: Hospital rig hand Allergies No Known Allergies Allergy (Verified 09/20/24 11:34) Medication List - Last Reconciled 09/20/24 by WYATT Martinez bisacodyl (Gentle Laxative (bisacodyl)) 10 mg RI DAILY PRN bisacodyl (Dulcolax (bisacodyl)) 10 mg RI DAILY PRN ferrous sulfate 325 mg PO DAILY lorazepam 0.5 mg PO TID PRN pantoprazole 40 mg PO DAILY prazosin 10 mg PO BEDTIME venlafaxine ER (Effexor XR) 150 mg PO QAM HPI Comments Details: This?a?24?yo female who is s/p LSG without hiatal hernia repair on?04/07/2024. Presents for 5 month post op visit. Weight today is 157.4 pounds, with a BMI of 27. There has been a 83.6pound weight loss,(initial weight 241 pounds) since starting the program on 05/29/2023 reflecting a 34.6 % total body weight loss and a weight loss of 63 pounds since surgery (operative weight 220.4 pounds) reflecting a 28.5 % TBWL since surgery. No complaints of nausea, emesis, abdominal pain or reflux. Reports infrequent but normal bowel movements every 3 days and uses stool softeners regularly. She states that she is doing much better, moved her bowels 2 x. Still has no further abdominal pain, vomiting or nausea. Present meal plan includes: 3 celebrate rebuild shakes w 1 scoop each w 8 oz almond milk each, 7-9, 12-2, 4-6 (was supposed to be doing 2 scoops each) Increase water to 48 oz per day. ? Exercise routine includes: treadmill daily, 2.5 hr daily, speed 5, incline 5-8, PFSH Medical History Anemia Depression GERD (gastroesophageal reflux disease) Hx of transfusion of packed red blood cells Insomnia Surgical History S/P laparoscopic sleeve gastrectomy Hx of section Family History Mother Anemia Factor 5 Leiden mutation, heterozygous Son No problems noted. Son No problems noted. Daughter No problems noted. Social History Household Members: Family Housing: Apartment Are you a primary client care specialist to a significant other at home: No Do you presently have visiting nurse or other home services: No Alcohol intake: never Patient Tobacco Use Status: Never used Tobacco service: No Current occupational status: employed Physical Exam Const General: healthy appearing and no acute distress Resp Effort & Inspection: normal respiratory effort Auscultation: clear to auscultation bilaterally Cardio Rate: regular rate Rhythm: regular rhythm GI Auscultation: normal bowel sounds Extrem General: Yes normal to inspection Assessment & Plan Assessment & Plan (1) S/P laparoscopic sleeve gastrectomy: Code(s): Z98.84 - Bariatric surgery status Category: Surgical Plan: We will change her meal plan to include food: Celebrate rebuild 2 shakes with 2 scoops each Four forks of protein and for forks of vegetables Continue exercises she is doing Encouraged to send weight is weekly and communicate weekly. Encouraged to add a multivitamin daily and given resource bariatric fusion Return to clinic 1 month Check six-month postop labs at that time.
[2024-09-20 11:47] VITALS: BP 117/62; PULSE 70; TEMP 36.9; O2SAT 100; BMI 27.0
== END 2024-09-20 11:58 | disposition home or self-care (01) ==
LOC: HO.HBS 11:30
PROVIDERS: Visit Provider Physician Assistant Surgical
DX: E66.3 Overweight (principal); Z68.27 Body mass index [BMI] 27.0-27.9, adult; Z90.3 Acquired absence of stomach [part of]; Z98.84 Bariatric surgery status
CPT/HCPCS: 99213; G2211

== ENCOUNTER → 2024-09-20 11:29 | Outpatient (BNVA) | payer OTHER, SELFPAY | PROVIDERS: Visit Provider Physician Assistant Surgical | DX: E66.9 Obesity, unspecified (principal); Z68.27 Body mass index [BMI] 27.0-27.9, adult; Z90.3 Acquired absence of stomach [part of] | CPT/HCPCS: 99212 ==

== ENCOUNTER 2024-10-29 11:08 | Outpatient (AMB) | payer OTHER, SELFPAY ==
--- NOTE | 2024-10-29 11:09 | MHC.OFFVISWM ---
VS Expanded 10/29/24 11:18 BP 123/74 Blood Pressure Location Rt brachial Blood Pressure Position Sitting Pulse 73 Pulse Source Pulse Oximeter Temp 96.8 F Temperature Source Temporal Artery Scan Pulse Oximetry 95 Oxygen Delivery Method Room Air Height 5 ft 4 in Weight 151 lb 3.2 oz BMI 26.0 Body Fat % 36.6 Body Fat Mass 55.4 Fat Free Mass 95.6 Visceral Fat Rating 4.0 Body Water % 45.5 Body Water Mass 68.8 Muscle Mass/Score 90.8 Basal Metabolic Rate/Score 1,365 Intake Visit Reasons: (OV) PO LSG 04/07/24 Traffic Rate Analyst Services: Traffic Rate Analyst Present Traffic Rate Analyst Name: [id number] Allergies No Known Allergies Allergy (Verified 10/29/24 11:13) Medication List - Last Reconciled 10/29/24 by WYATT Martinez bisacodyl (Gentle Laxative (bisacodyl)) 10 mg [place] DAILY PRN bisacodyl (Dulcolax (bisacodyl)) 10 mg MT DAILY PRN ferrous sulfate 325 mg PO DAILY lorazepam 0.5 mg PO TID PRN pantoprazole 40 mg PO DAILY prazosin 10 mg PO BEDTIME venlafaxine ER (Effexor XR) 150 mg PO QAM HPI Comments Details: This?a?24?yo female who is s/p LSG without hiatal hernia repair on?04/07/2024. Presents for 6 month post op visit. Weight today is 151.2 pounds, with a BMI of 25.9. There has been a 89.8 pound weight loss,(initial weight 241 pounds) since starting the program on 05/29/2023 reflecting a 37.2 % total body weight loss and a weight loss of 69.2 pounds since surgery (operative weight 220.4 pounds) reflecting a 31.3 % TBWL since surgery. Reports infrequent but normal bowel movements every 3 days and uses stool softeners regularly. Was doing 3 celebrate rebuild shakes with 2 scoops each when she does not eat solid food. States vomiting with solid food. She states she isn't sure if she is chewing properly. She would chew for 3 or 4 seconds and then swallow. She was able to tolerate the protein bar after surgery Taking celebrate mvi tablet without difficulty Present meal plan includes: Celebrate rebuild 2 shakes with 2 scoops each Four forks of protein and four forks of vegetables Increase water to 48 oz per day. ? Exercise routine includes: treadmill daily, 2.5 hr daily, speed 5, incline 5-8, Any post op complications: none RICHA: never DM: never HTN: never Hyperlipidemia: never GERD:?0-5 scale ??0 = no symptoms ??1 = symptoms noticeable but not bothersome 2 =symptoms bothersome but not daily ? 3 = symptoms bothersome and daily 4 = symptoms affect daily activities 5 = symptoms are incapacitating, unable to do daily activities ? How bad is the heartburn: 0 ? Heartburn while lying down: 0 ? Heartburn when standing up: 0 ? Heartburn after meals: 0 ? Does heartburn change your diet: 0 ? Does heartburn wake you up from sleep: 0 ? Do you have difficulty swallowin ? Do you have pain with swallowin ? If you take medicine for your reflux, does this affect your daily life: 0 Satisfaction with present condition - satisfied or not satisfied: satisfied [facility] Medical History Anemia Depression GERD (gastroesophageal reflux disease) Hx of transfusion of packed red blood cells Insomnia Surgical History S/P laparoscopic sleeve gastrectomy Hx of section Family History Mother Anemia Factor 5 Leiden mutation, heterozygous Son No problems noted. Son No problems noted. Daughter No problems noted. Social History Household Members: Family Housing: Apartment Are you a primary child day care provider to a significant other at home: No Do you presently have visiting nurse or other home services: No Alcohol intake: never Patient Tobacco Use Status: Never used Tobacco service: No Current occupational status: employed Physical Exam Const General: cooperative and no acute distress Orientation/consciousness: patient oriented x3 Resp Effort & Inspection: normal respiratory effort Auscultation: clear to auscultation bilaterally Cardio Rate: regular rate Rhythm: regular rhythm GI Inspection: Yes normal to inspection and Yes incision (well healed) Palpation (GI): Soft to palpation and no masses Neuro General: patient oriented x3 Assessment & Plan Assessment & Plan (1) S/P laparoscopic sleeve gastrectomy: Code(s): Z98.84 - Bariatric surgery status Category: Surgical Plan: Tolerating liquids without difficulty. Patient appears to be taking a large bite and not chewing well enough. Discussed the importance of taking small bites, chewing 20 5 times and then swallow. She will do this and text me next week if she is still having problems then we will refer to Dr. Plata for possible upper endoscopy however it does seem clear that she is taking too large of a bolus. We will check six-month postop labs. Follow-up in the office in 3-4 weeks.
[2024-10-29 11:18] VITALS: BP 123/74; PULSE 73; TEMP 36; O2SAT 95; BMI 26.0
== END 2024-10-29 11:40 | disposition home or self-care (01) ==
PROVIDERS: Visit Provider Physician Assistant Surgical
DX: E66.3 Overweight (principal); Z68.26 Body mass index [BMI] 26.0-26.9, adult; Z90.3 Acquired absence of stomach [part of]; Z98.84 Bariatric surgery status
CPT/HCPCS: 99214

== ENCOUNTER → 2024-10-29 11:08 | Outpatient (BNVA) | payer OTHER, SELFPAY | PROVIDERS: Visit Provider Physician Assistant Surgical | DX: Z98.84 Bariatric surgery status (principal) | CPT/HCPCS: 99212 ==

== ENCOUNTER 2024-12-03 10:19 | Outpatient (AMB) | payer OTHER, SELFPAY ==
--- NOTE | 2024-12-03 10:30 | A.OFFVIS_ITS ---
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 [employer] 6 Teacher Required: Yes Gr[employer] 1 Through 6 Teacher Services: Grades 1 Through 6 Teacher Present Gr[employer] 1 Through 6 Teacher Name: hospital cmi Allergies No Known Allergies Allergy (Verified 12/03/24 10:32) Medication List - Last Reconciled 12/03/24 by WYATT Martinez bisacodyl (Gentle Laxative (bisacodyl)) 10 mg HI DAILY PRN bisacodyl (Dulcolax (bisacodyl)) 10 mg [place] DAILY PRN ferrous sulfate 325 mg PO DAILY lorazepam 0.5 mg PO TID PRN pantoprazole 40 mg PO DAILY prazosin 10 mg PO BEDTIME venlafaxine ER (Effexor XR) 150 mg PO QAM HPI Comments Details: This?a?24?yo female who is s/p LSG without hiatal hernia repair on?04/07/2024. Presents for 8 month post op visit. Weight today is 146.8 pounds, with a BMI of 25.2. There has been a 94.2 pound weight loss,(initial weight 241 pounds) since starting the program on 05/29/2023 reflecting a 39 % total body weight loss and a weight loss of 73.6 pounds since surgery (operative weight 220.4 pounds) reflecting a 33.3 % TBWL since surgery. Reports infrequent but normal bowel movements every 3 days and uses stool softeners regularly. following the meal plan, additionally, she states that she is now chewing much more effectively and has no further nausea with eating. Taking celebrate mvi tablet without difficulty Present meal plan includes: Celebrate rebuild 2 shakes with 2 scoops each, 7am, 2 pm Four forks of protein and four forks of vegetables 530 pm water to 64 oz per day. ? Exercise routine includes: treadmill only on weekends due to busy work and school schedule, 2.5 hr daily, speed 5, incline 5-10, PFSH Medical History Anemia Depression GERD (gastroesophageal reflux disease) Hx of transfusion of packed red blood cells Insomnia Surgical History S/P laparoscopic sleeve gastrectomy Hx of section Family History Mother Anemia Factor 5 Leiden mutation, heterozygous Son No problems noted. Son No problems noted. Daughter No problems noted. Social History Household Members: Family Housing: Apartment Are you a primary customer care coordinator to a significant other at home: No Do you presently have visiting nurse or other home services: No Alcohol intake: never Patient Tobacco Use Status: Never used Tobacco service: No Current occupational status: employed Physical Exam Vital Signs: Last Vital Signs Temp 97.9 F 12/03/24 10:35 Pulse 79 12/03/24 10:35 BP 118/63 12/03/24 10:35 Pulse Ox 100 12/03/24 10:35 Oxygen Delivery Method Room Air 12/03/24 10:35 BMI result Body Mass Index 25.2 Const General: cooperative and no acute distress Orientation/consciousness: patient oriented x3 Resp Effort & Inspection: normal respiratory effort Auscultation: clear to auscultation bilaterally Cardio Rate: regular rate Rhythm: regular rhythm GI Inspection: Yes normal to inspection and Yes incision (well healed) Palpation (GI): Soft to palpation and no masses Neuro General: patient oriented x3 Assessment & Plan Assessment & Plan (1) S/P laparoscopic sleeve gastrectomy: Code(s): Z98.84 - Bariatric surgery status Category: Surgical Plan: Patient doing very well, satisfied with her meal plan. No longer having any nausea with chewing very well. She additionally is drinking her fluids slowly. She is exercising as much as she can on the weekends she does not have time during the week. Encouraged her to get six-month postop labs done. Plan to ret urn to the office in 2 months. Additionally, encouraged to text weekly her weight and with any questions or concerns. 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 Hemoglobin A1c Today D50.9 - Iron deficiency anemia, unspecified, 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 IRON PROFILE Today D50.9 - Iron deficiency anemia, unspecified, 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 Vitamin B12 and Folate Today D50.9 - Iron deficiency anemia, unspecified, 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
[2024-12-03 10:35] VITALS: BP 118/63; PULSE 79; TEMP 36.6; O2SAT 100; BMI 25.2
== END 2024-12-03 11:08 | disposition home or self-care (01) ==
PROVIDERS: Visit Provider Physician Assistant Surgical
DX: D68.51 Activated protein C resistance (principal); D50.9 Iron deficiency anemia, unspecified; Z90.3 Acquired absence of stomach [part of]; Z98.84 Bariatric surgery status
CPT/HCPCS: 99214; G2211

== ENCOUNTER → 2024-12-03 10:19 | Outpatient (BNVA) | payer OTHER, SELFPAY | PROVIDERS: Visit Provider Physician Assistant Surgical | DX: Z98.84 Bariatric surgery status (principal) | CPT/HCPCS: 99212 ==

== ENCOUNTER 2025-02-18 10:53 | Outpatient (REF) | payer OTHER, SELFPAY ==
[2025-02-18 11:12] LABS: MANUAL DIFF FLAG NO
[2025-02-18 12:11] LABS: Basophils Percent Auto 0.4 % (0-2); Eosinophils Percent Auto 0.4 % (0-4); Hematocrit 29.2 % (37.0-47.0); Hemoglobin 8.7 g/dl (12.0-16.0); Imm Gran Abs Auto 0.01 X10*3/uL (0.00-0.03); Imm Gran Pct Auto 0.2 % (0.0-0.4); Lymphocytes Absolute Auto 1.3 X10*3/uL (1.2-4.9); Lymphocytes Percent Auto 24.3 % (20-40); Mean Corpuscular HGB Conc 29.8 g/dl (31.0-35.0); Mean Corpuscular Hemoglobin 22.2 pg (27.0-33.0); Mean Corpuscular Volume 74.5 fL (80.0-98.0); Mean Platelet Volume 11.5 fL (9.4-12.3); Monocytes Absolute Auto 0.3 X10*3/uL (0.1-1.2); Monocytes Percent Auto 5.9 % (2-11); Neutrophils Absolute Auto 3.6 x10*3/uL (2.0-8.3); Neutrophils Percent Auto 68.8 % (45-73); Platelet Count 248 X10*3/uL (160-400); Red Blood Count 3.92 X10*6/uL (4.20-5.50); Red Cell Distribution Width 14.6 % (11.0-16.0); White Blood Count 5.3 X10*3/uL (4.8-10.8)
[2025-02-18 12:17] LABS: Estimated Average Glucose 108 mg/dL; Hemoglobin A1c % 5.4 % (<6.0)
[2025-02-18 12:47] LABS: Alanine Aminotransferase 8 U/L (0-31); Albumin Level 4.2 g/dL (3.5-5.0); Alkaline Phosphatase 77 U/L (39-117); Anion Gap 9 (12-20); Aspartate Amino Transferase 17 U/L (5-31); Bilirubin Total 0.4 mg/dL (0.0-1.0); Blood Urea Nitrogen 7 mg/dL (9-16); C Reactive Protein 0.63 mg/dL (< or = 0.50); Calcium 9.1 mg/dL (8.4-10.2); Carbon Dioxide 25 mmol/L (22-29); Chloride 110 mmol/L (96-108); Cholesterol 127 mg/dL (<200); Estimated Glomerular Filt Rate > 60; Glucose Random 77 mg/dL (60-115); HDL Cholesterol 47 mg/dL (>40); Iron 15 mcg/dL (30-160); LDL Cholesterol Calculated 73 mg/dL (<100); Percent Iron Saturation 4 % (15-50); Potassium 3.5 mmol/L (3.3-5.1); Sodium 140 mmol/L (135-145); Total Iron Binding Capacity 349 mcg/dL (228-428); Total Protein 7.2 g/dL (6.5-8.0); Triglycerides 38 mg/dL (<150); Unsaturated Iron Binding 334 ug/dL
[2025-02-18 12:58] LABS: Ferritin 9 ng/mL (10-122); TSH reflex Free T4 0.53 uIU/mL (0.32-4.0); Vitamin D 25-OH Total 9.4 ng/mL (>30)
[2025-02-18 13:10] LABS: Folate 7.7 ng/mL (> or = 4.0); Vitamin B12 715 pg/mL (200-900)
[2025-02-18 13:12] LABS: Insulin 4 uU/mL (2-29)
[2025-02-21 10:19] LABS: Vitamin A 10 mcg/dL (38-98)
[2025-02-22 06:13] LABS: Zinc 57 mcg/dL (60-130)
[2025-02-27 12:47] LABS: Vitamin B1 8 nmol/L (8-30)
== END 2025-02-18 10:54 | disposition home or self-care (01) ==
LOC: HO.LAB 10:53
PROVIDERS: PCP Pediatrics; Visit Provider Physician Assistant Surgical
DX: Z98.84 Bariatric surgery status (principal); D68.51 Activated protein C resistance; D50.9 Iron deficiency anemia, unspecified
CPT/HCPCS: 36415; 80053; 80061; 82306; 82607; 82728; 82746; 83036; 83525; 83540; 84425; 84443; 84590; 84630; 85025; 86140

== ENCOUNTER 2025-02-18 12:05 | Outpatient (AMB) | payer OTHER, SELFPAY ==
--- NOTE | 2025-02-18 11:33 | MHC.OFFVISWM ---
VS Expanded 02/18/25 11:57 Height 5 ft 4 in Weight 138 lb BMI 23.7 Intake Visit Reasons: (OV) PO LSG 04/07/24 Cleaning Staff Supervisor Services: Cleaning Staff Supervisor Offered & Declined Allergies No Known Allergies Allergy (Verified 12/03/24 10:32) Medication List - Last Reconciled 02/18/25 by WYATT Martinez bisacodyl (Gentle Laxative (bisacodyl)) 10 mg [place] DAILY PRN bisacodyl (Dulcolax (bisacodyl)) 10 mg [place] DAILY PRN ferrous sulfate 325 mg PO DAILY lorazepam 0.5 mg PO TID PRN prazosin 10 mg PO BEDTIME sennosides (senna) 17.2 mg (2 x 8.6 mg) PO BEDTIME PRN venlafaxine ER (Effexor XR) 150 mg PO QAM HPI Comments Details: This?a?24?yo female who is s/p LSG without hiatal hernia repair on?04/07/2024. Presents for 10 month post op visit. Weight today is 138 pounds, with a BMI of 23.7. There has been a 103 pound weight loss,(initial weight 241 pounds) since starting the program on 05/29/2023 reflecting a 42.7 % total body weight loss and a weight loss of 82.4 pounds since surgery (operative weight 220.4 pounds) reflecting a 37.3 % TBWL since surgery. Reports infrequent but normal bowel movements every 3 days and uses stool softeners regularly. following the meal plan, additionally, she states that she is now chewing much more effectively and has no further nausea with eating. No complaints of reflux. She does not wish to change her meal plan at this time. Taking celebrate mvi tablet without difficulty Present meal plan includes: Celebrate rebuild 2 shakes with 2 scoops each, 7am, 2 pm 4 forks of protein and 4 forks of vegetables 530 pm water to 64 oz per day. ? Exercise routine includes: treadmill only on weekends due to busy work and school schedule, 2.5 hr daily, speed 5, incline 5-10, PFSH Medical History Anemia Depression GERD (gastroesophageal reflux disease) Hx of transfusion of packed red blood cells Insomnia Surgical History S/P laparoscopic sleeve gastrectomy Hx of section Family History Mother Anemia Factor 5 Leiden mutation, heterozygous Son No problems noted. Son No problems noted. Daughter No problems noted. Social History Household Members: Family Housing: Apartment Are you a primary direct support professional caregiver to a significant other at home: No Do you presently have visiting nurse or other home services: No Alcohol intake: never Patient Tobacco Use Status: Never used Tobacco service: No Current occupational status: employed Assessment & Plan Assessment & Plan (1) S/P laparoscopic sleeve gastrectomy: Code(s): Z98.84 - Bariatric surgery status Category: Surgical Plan: Patient is doing very well. She has achieved a healthy weight and is enjoying a healthy lifestyle. She is exercising as much as she can, busy with school and work. She continues to follow her meal plan and is satisfied with this. She has lost over 100 lb. She continues to take a multivitamin. We will have her return to the office for her 1 year follow-up. Check labs at that time. Encouraged to continue to text weekly and with any questions or concerns.
[2025-02-18 11:57] VITALS: BMI 23.7
== END 2025-02-18 12:06 | disposition home or self-care (01) ==
LOC: HO.HBS 12:05
PROVIDERS: PCP Pediatrics; Visit Provider Physician Assistant Surgical
DX: D68.51 Activated protein C resistance (principal); D50.9 Iron deficiency anemia, unspecified; Z90.3 Acquired absence of stomach [part of]; Z98.84 Bariatric surgery status
CPT/HCPCS: 99213

== ENCOUNTER 2025-04-28 09:33 | Outpatient (AMB) | payer OTHER, SELFPAY ==
--- NOTE | 2025-04-28 09:39 | A.OFFVIS_ITS ---
VS Expanded 04/28/25 09:49 BP 114/55 L Blood Pressure Location Rt brachial Blood Pressure Position Sitting Pulse 89 Pulse Source Pulse Oximeter Temp 97.6 F Temperature Source Temporal Artery Scan Pulse Oximetry 100 Oxygen Delivery Method Room Air Height 5 ft 4 in Weight 130 lb 12.8 oz BMI 22.4 Body Fat % 27.7 Body Fat Mass 36.2 Fat Free Mass 94.6 Visceral Fat Rating 0 Body Water % 52.1 Body Water Mass 68.2 Muscle Mass/Score 89.8 Basal Metabolic Rate/Score 1,316 Intake Visit Reasons: OV PO LSG 04/07/24 Polysomnographic Technologist Required: Yes Polysomnographic Technologist Services: Polysomnographic Technologist Present Polysomnographic Technologist Name: hospital cmi Allergies No Known Allergies Allergy (Verified 04/28/25 09:46) Medication List - Last Reconciled 04/28/25 by WYATT Martinez bisacodyl (Gentle Laxative (bisacodyl)) 10 mg PA DAILY PRN bisacodyl (Dulcolax (bisacodyl)) 10 mg PA DAILY PRN iron,carbonyl-vitamin C 65 mg iron- 125 mg (Vitron-C) 1 tab PO DAILY 90 days lorazepam 0.5 mg PO TID PRN sennosides (senna) 17.2 mg (2 x 8.6 mg) PO BEDTIME PRN venlafaxine ER (Effexor XR) 150 mg PO QAM vitamin A palmitate 10,000 units PO DAILY HPI Comments Details: This?a?25?yo female who is s/p LSG without hiatal hernia repair on?04/07/2024. Presents for 1 year 1 month post op visit. Weight today is 130.8 pounds, with a BMI of 22.5. There has been a 110.2 pound weight loss,(initial weight 241 pounds) since starting the program on 05/29/2023 reflecting a 45.7 % total body weight loss and a weight loss of 89.6 pounds since surgery (operative weight 220.4 pounds) reflecting a 40.6 % TBWL since surgery. Reports infrequent but normal bowel movements every 3 days and uses stool softeners regularly. following the meal plan, additionally, she states that she is having some reflux with solid foods, she gave the example of hard boiled egg with willams. Does not have any difficulty with her shakes. She states she does not have fluids before or after her meals. She has not tried different things. She also reports that she had labs done by her primary care physician last month, we have requested she get those records for us.. She does not wish to change her meal plan at this time. Taking celebrate mvi tablet without difficulty Present meal plan includes: Celebrate rebuild 2 shakes with 2 scoops each, 7am, 2 pm 4 forks of protein and 4 forks of vegetables 530 pm water to 64 oz per day. ? Exercise routine includes: treadmill, 2 hr daily, speed 5, incline 5-10, Any post op complications: none RICHA: never DM: never HTN: never Hyperlipidemia: never GERD:?0-5 scale ??0 = no symptoms ??1 = symptoms noticeable but not bothersome 2 =symptoms bothersome but not daily ? 3 = symptoms bothersome and daily 4 = symptoms affect daily activities 5 = symptoms are incapacitating, unable to do daily activities ? How bad is the heartburn: 2 ? Heartburn while lying down: 0 ? Heartburn when standing up: 0 ? Heartburn after meals: 2 ? Does heartburn change your diet: 0 ? Does heartburn wake you up from sleep: 0 ? Do you have difficulty swallowin ? Do you have pain with swallowin ? If you take medicine for your reflux, does this affect your daily life: 0 Satisfaction with present condition - satisfied or not satisfied: satisfied [facility] Medical History Anemia Depression GERD (gastroesophageal reflux disease) Hx of transfusion of packed red blood cells Insomnia Surgical History S/P laparoscopic sleeve gastrectomy Hx of section Family History Mother Anemia Factor 5 Leiden mutation, heterozygous Son No problems noted. Son No problems noted. Daughter No problems noted. Social History Household Members: Family Housing: Apartment Are you a primary primary care md to a significant other at home: No Do you presently have visiting nurse or other home services: No Alcohol intake: never Patient Tobacco Use Status: Never used Tobacco service: No Current occupational status: employed Physical Exam Vital Signs: Last Vital Signs Temp 97.6 F 04/28/25 09:49 Pulse 89 04/28/25 09:49 BP 114/55 L 04/28/25 09:49 Pulse Ox 100 04/28/25 09:49 Oxygen Delivery Method Room Air 04/28/25 09:49 BMI result Body Mass Index 22.4 Const General: cooperative and no acute distress Orientation/consciousness: patient oriented x3 Resp Effort & Inspection: normal respiratory effort Auscultation: clear to auscultation bilaterally Cardio Rate: regular rate Rhythm: regular rhythm GI Inspection: Yes normal to inspection and Yes incision (well healed) Palpation (GI): Soft to palpation and no masses Neuro General: patient oriented x3 Assessment & Plan Assessment & Plan (1) S/P laparoscopic sleeve gastrectomy: Code(s): Z98.84 - Bariatric surgery status Category: Surgical Plan: Overall, patient is achieved a healthy weight and healthy lifestyle. She does continue to follow her meal plan and exercise regularly. We will have her get her labs that were drawn through her primary care physician and fax them to our office. We will supplement labs as needed based on what has previously been drawn. Encouraged to continue multivitamin and calcium plus D which she is doing. Encouraged spinach and broccoli, foods high in iron, we will have her return to the office in approximately 6 weeks. (2) GERD (gastroesophageal reflux disease): Code(s): K21.9 - Gastro-esophageal reflux disease without esophagitis Category: Medical Plan: Unclear etiology. This had happened to her previously and with smaller bites and chewing well it had resolved. There is no problems with reflux with liquids and no evidence of hiatal hernia on endoscopy or UGI preoperatively. I suspect this is behavioral in etiology. Discussed the importance of small bites, taking time between bites and avoiding fluids before and after her meal. She will also try to identify if certain foods trigger her reflux. We will have her follow-up as above and consideration for repeat upper endoscopy if needed
[2025-04-28 09:49] VITALS: BP 114/55; PULSE 89; TEMP 36.4; O2SAT 100; BMI 22.4
--- OUTSIDE RECORDS SUMMARY | 2025-04-28 10:37 | XMS_ITS | Clinical Summary ---
Author Organization [facility] [address] [place] [address] [place] [address] Phone Care Team Providers Care Real Estate Associate Attorney Name Role Phone Yaya Lamas MD Primary Care Provider Allergies No known active allergies Medications ergocalciferol (VITAMIN D-2) 1,250 mcg (50,000 unit) capsule Take 1 capsule (50,000 Units total) by mouth 1 (one) time per week. 12 capsule 03/28/2025 Active Active Problems Problem Noted Date Diagnosed Date Venous insufficiency of both lower extremities 0 07/24/2020 Iron deficiency anemia 07/22/2020 Resolved Problems Problem Noted Date Diagnosed Date Resolved Date Morbid obesity with BMI of 4 0.0-44.9, adult (CMS/[facility] V24, CMS/[facility] V28) 10/11/2024 03/21/2025 Obesity (BMI 30-39.9) 06/02/20202024 Encounters Date Type Department Care Team Description 04/06/2025 Telephone Obstetrics and Gynecology - [address] [phone] Colleen Latham MA Results 03/31/2025 11:15 AM EDT Office Visit Obstetrics and Gynecology - [address] [phone] Lakesha Silva CNM Encounter for gynecological examination without abnormal finding (Primary Dx); Intrauterine device surveillance; Screen for STD (sexually transmitted disease); Encounter for IUD removal; control counseling; Menorrhagia with regular cycle 03/21/2025 1:00 PM EDT Office Visit [address] [phone] Kaya Duff PA Iron deficiency anemia due to chronic blood loss (Primary Dx); Fatigue, unspecified type; S/P gastric sleeve procedure; Encounter for screening for lipid disorder; Need for hepatitis C screening test; Screening for HIV (human immunodeficiency virus) from Last 3 Months Immunizations Name Administration Dates Next Due Influenza Quadravalent, MDCK , 0.5ml, preservative free (Flucelvax) 6mo and older 10/24/2020 Surgical History Surgery Date Site/Laterality Comments OTHER SURGICAL HISTORY PROCEDURE: ---- OTHER ----; COMMENT: c section Medical History Medical History Date Comments Anxiety and depression DX:Anxiet y and depression Family History Medical History Relation Name Comments No Known Problems Father Hypertension Mother Other: pain/swelling in feet Mother Asthma Sister Asthma Son Breast cancer Neg Hx Ovarian cancer Neg Hx Uterine cancer Neg Hx Relation Name Status Comments Brother 1 Alive Brother 2 Alive Father Alive Mother Alive Sister Alive Son Alive Social History Tobacco Use Types Packs/Day Years Used Date Smoking Tobacco: Never Smokeless Tobacco: Never Tobacco Cessation:Counseling Given: Not Answered Alcohol Use Standard Drinks/Week Comments No 0 (1 standard drink = 0.6 oz pur e alcohol) Comments No Sex and Gender Information Value Date Recorded Sex Assigned at Not on file Legal Sex Female 7:05 AM EST Gender Identity Not on file Sexual Orientation Not on file Obstetrics History Para Term AB IAB SAB Ectopic Multiple Livin g Live Births 3 3 2 1 0 3 Date Outcome GA Total Labor Labor/2nd/3rd Weight Sex Type Anes PTL Bonnie A1 A5 Name Clin Term Term Last Filed Vital Signs Vital Sign Reading Time Taken Comments Blood Pressure 99/65 03/31/2025 11:43 AM EDT Pulse 86 03/31/2025 11:43 AM EDT Temperature 36.5 ??C (97.7 ??F) 03/21/2025 12:58 PM E DT Respiratory Rate 16 03/21/2025 12:58 PM EDT Oxygen Saturation 96% 03/21/2025 12:58 PM EDT Inhaled Oxygen Concentration - - Weight 61.7 kg (136 lb) 03/31/2025 11:43 AM EDT Height 162.6 cm (5' 4 ) 03/21/2025 12:58 PM EDT Body Mass Index 23.34 03/21/2025 12:58 PM EDT Plan of Treatment Health Maintenance Due Date Last Done Comments Hepatitis B Vaccines (1 of 3 - 19+ 3-dose series) 2017 Social Influencers of Health Screening 10/27/2022 COVID-19 Vaccine ( - season) 2024 Depression Screening 02/24/2025 02/25/2024 Influenza Vaccine (Season Ended) 2025 10/24/2020 Cervical Cancer Screening: Pap Smear 03/31/2028 03/31/2025, 11/03/2020, 11/03/2020, Additional history exists DTaP,Tdap,and Td Vaccines (2 - Td or Tdap) 02/01/2030 02/02/2020 Cholesterol Screening (Lipid Panel) 03/25/2030 03/25/2025, 06/22/2020 Gonorrhea/Chlamydia Screening Discontinued 03/31/2025, 11/03/2020 HIV Screening Completed 03/31/2025, 03/25/2025 Hepatitis C Screening Completed 03/31/2025, 025 HIB Vaccines Aged Out No longer eligi ble based on patient's age to complete this topic HPV Vaccines Aged Out No longer eligi ble based on patient's age to complete this topic Hepatitis A Vaccines Aged Out No long er eligible based on patient's age to complete this topic IPV Vaccines Aged Out No longer eligi ble based on patient's age to complete this topic MMR Vaccines Aged Out No longer eligi ble based on patient's age to complete this topic Meningococcal ACWY Vaccine Aged Out N o longer eligible based on patient's age to complete this topic Meningococcal B Vaccine Aged Out No l onger eligible based on patient's age to complete this topic Pneumococcal Vaccine: Pediatrics (0 to 5 Years) and At-Risk Patients (6 to 64 Years) Aged Out No longer eligible based on patient's age to complete this topic RSV Immunization Patients Under 20 months Aged Out No longer eligible based on patient's age to complete this topic Varicella Vaccines Aged Out No longer eligible based on patient's age to complete this topic Procedures Procedure Name Priority Date/Time Associated Diagnosis Comments [place] REMOVAL INTRAUTERINE DEVICE Routine 03/31/2025 1:04 PM EDT Encounter for IUD removal CHLAMYDIA TRACHOMATIS AND NEISSERIA GONORRHOEAE BY TMA, THINPREP Routine 03/31/2025 12:19 PM EDT Encounter for gynecological examination without abnormal finding PAP SMEAR Routine 03/31/2025 12:19 PM EDT Encounter for gynecological examination without abnormal finding TRICHOMONAS VAGINALIS PCR Routine 03/31/2025 12:19 PM EDT Encounter for gynecological examination without abnormal finding HIV 1, 2 ANTIBODY, P24 ANTIGEN WITH REFLEX TO DIFFERENTIATION Routine 03/31/2025 12:11 PM EDT Screen for STD (sexually transmitted disease) HEPATITIS B SURFACE ANTIGEN WITH CONFIRMATION Routine 03/31/2025 12:11 PM EDT Screen for STD (sexually transmitted disease) TREPONEMA PALLIDUM ANTIBODY WITH REFLEX TO RPR AND PARTICLE AGGLUTINATION Routine 03/31/2025 12:11 PM EDT Screen for STD (sexually transmitted disease) HEPATITIS C ANTIBODY Routine 03/31/2025 12:11 PM EDT Screen for STD (sexually transmitted disease) CBC WITH AUTO DIFFERENTIAL Routine 03/25/2025 1:09 PM EDT Iron deficiency anemia due to chronic blood loss CBC AND DIFFERENTIAL Routine 03/25/2025 1:09 PM EDT Iron deficiency anemia due to chronic blood loss IRON AND TIBC Routine 03/25/2025 1:09 PM EDT Iron deficiency anemia due to chronic blood loss VITAMIN B12 Routine 03/25/2025 1:09 PM EDT Fatigue, unspecified type VITAMIN D 25 HYDROXY Routine 03/25/2025 1:09 PM EDT Fatigue, unspecified type THYROID STIMULATING HORMONE WITH REFLEX TO FREE T4 AND FREE T3 Routine 03/25/2025 1:09 PM EDT Fatigue, unspecified type LIPID PANEL WITH REFLEX TO DIRECT LDL Routine 03/25/2025 1:09 PM EDT Encounter for screening for lipid disorder COMPREHENSIVE METABOLIC PANEL Routine 03/25/2025 1:09 PM EDT Fatigue, unspecified type HIV 1, 2 ANTIBODY, P24 ANTIGEN WITH REFLEX TO DIFFERENTIATION Routine 03/25/2025 1:09 PM EDT Screening for HIV (human immunodeficiency virus) HEPATITIS C ANTIBODY Routine 03/25/2025 1:09 PM EDT Need for hepatitis C screening test DEPRESSION SCREENING Routine 02/25/2024 from Last 3 Months or Most Recently Relevant to Health Maintenance Results * [place] REMOVAL INTRAUTERINE DEVICE (03/31/2025 1:04 PM EDT) Lakesha Lora CNM - 03/31/2025 1:04 PM EDT Lakesha Silva CNM ? 03/31/2025 ??1:06 PM IUD Removal ?? Date/Time: 03/31/2025 1:04 PM Performed by: Lakesha Silva CNM Authorized by: Lakesha Silva CNM ?? Informed Consent: ??Health status cleared: ??Yes ??Procedure/treatment, purpose, treatment alternatives, risks/potential complications and benefits explained: yes ?Risk/complications/benefits details: ??Per consent form ??Patient questions answered: yes ?Patient agrees, verbalizes understanding, and wants to proceed: yes ?Consent given by: ??Patient ??Informed consent discussion completed by Physician/ARPNA with patient: ?? Written; patient signed and dated; copy to patient Removal ??Procedure: ??Strings visible: yes ?Removal device: ??Ring forceps ??Removal reason: ??Desires removal ??Removal successful: yes ?Complications: no ?? Comments: ?? Postprocedure care reviewed. Condoms encouraged Lakesha Silva CNM us Lakesha Silva CNM IN CLINIC/BEDSIDE ORDERABLES F inal Result * Chlamydia trachomatis and neisseria gonorrhoeae by tma, thinprep (03/31/2025 12:19 PM EDT) N. gonorrhoeae, RNA Probe Negative Negative LAB MICROBIOLOGY METHOD 04/04/2025 11:56 AM EDT [facility] Chlamydia, RNA Probe Negative Negative LAB MICROBIOLOGY METHOD 04/04/2025 11:56 AM EDT [facility] Brushing/Spatula Cervix uteri structure / Unknown 03/31/2025 12:19 PM EDT 04/01/2025 7:24 AM EDT us Lakesha Silva CNM LAB CYTOLOGY ORDERABLES Final Result Performing Organization Address City/[facility]/ZIP Co de Phone Number [facility] [address] [place] [address], [place] [phone] * Trichomonas vaginalis molecular study (03/31/2025 12:19 PM EDT) Pathologist [facility] Trichomonas vaginalis Negative Negative LAB MICROBIOLOGY METHOD 04/04/2025 12:06 PM EDT [facility] Brushing/Spatula Cervix uteri structure / Unknown 03/31/2025 12:19 PM EDT 04/01/2025 7:24 AM EDT us Lakesha Silva CNM LAB BLOOD ORDERABLES Final Res ult [facility] [address] [place] [address], [place] [phone] * Pap smear (03/31/2025 12:19 PM EDT) Interpretation Negative for intraepithelial lesion or malignancy 04/05/2025 1:24 PM EDT [facility] General Categorization Negative 04/05/2025 1:24 PM EDT [facility] Other Findings Shift in abelardo suggestive of bacterial vaginosis 04/05/2025 1:24 PM EDT [facility] LMP 03/08/2025 04/05/2025 1:24 PM EDT [facility] Specimen Adequacy Satisfactory for evaluation, endocervical/roman sformation zone component present 04/05/2025 1:24 PM EDT [facility] Pap Methodology Liquid Based Pap Test 04/05/2025 1:24 PM EDT [facility] Disclaimer The Pap test is a screening test which carries an inherent false negative rate. These test results should be correlated with the patient's clinical findings and history. This Pap test was processed using an automated screening system. Technical cytopathology services provided by [facility], at [address] [place] [address] (CLIA # [id number]/Lesly Campos MD, Auto Appraiser.) 04/05/2025 1:24 PM EDT [facility] Console Pap Interpretation Reported 04/05/2025 1:24 PM EDT [facility] Brushing/Spatula Cervix uteri structure / Unknown 03/31/2025 12:19 PM EDT 03/31/2025 12:19 PM EDT Lakesha Silva CNM LAB CYTOLOGY ORDERABLES Final Result [facility] [address] [place] [address], * Hepatitis C antibody (03/31/2025 12:11 PM EDT) Only the most recent of2 resultswithin the time period is included. Pathologist [facility] Hepatitis C Antibody Negative Negative LAB CHEMISTRY METHOD 03/31/2025 4:43 PM EDT [facility] Blood Venous blood specimen / Unknown Venipuncture / Unknown 03/31/2025 12:11 PM EDT 03/31/2025 12:11 PM EDT us Lakesha Silva [facility] BLOOD ORDERABLES Final Res ult Performing Organization Address [facility]/ZIP Co de Phone Number [facility] [address] [place] [address], [place] [phone] * HIV 1,2 antibody, p24 antigen with reflex to differentiation (03/31/2025 12:11 PM EDT) Only the most recent of2 resultswithin the time period is included. [facility] HIV Combo AB/AG Negative Negative LAB CHEMISTRY METHOD 03/31/2025 4:44 PM EDT [facility] Blood Venous blood specimen / Unknown Venipuncture / Unknown 03/31/2025 12:11 PM EDT 03/31/2025 12:11 PM EDT Narrative [facility] - 03/31/2025 4:44 PM EDT This assay is a 4th generation assay allowing for earlier detection of HIV infection by detecting the presence of the HIV-1 p24 antigen as well as the traditional antibodies to HIV type 1 (including group O) and type 2. ??Use of a 4th generation assay is the current CDC recommendation for HIV screening. us Lakesha Silva [facility] BLOOD ORDERABLES Final Res ult Performing Organization Address City/[facility]/ZIP Co de Phone Number [facility] [address] [place] [address], [place] [phone] * Hepatitis B surface antigen with reflex to confirmation (03/31/2025 12:11 PM EDT) [facility] Hepatitis B Surface Ag Negative Negative LAB CHEMISTRY METHOD 03/31/2025 4:15 PM EDT [facility] Blood Venous blood specimen / Unknown Venipuncture / Unknown 03/31/2025 12:11 PM EDT 03/31/2025 12:11 PM EDT Narrative [facility] - 03/31/2025 4:15 PM EDT Over the counter supplements containing high doses of biotin may interfere with this assay. ??If interference is suspected, patients shoud be retested after refraining from biotin supplements for 72 hours. Lakesha Silva [facility] BLOOD ORDERABLES Final Res ult Performing Organization Address [facility]/ZIP Co de Phone Number [facility] [address] [place] [address], [place] [phone] * Treponema pallidum antibody with reflex to RPR and particle agglutination (03/31/2025 12:11 PM EDT) Pathologist [facility] T. Pallidum Antibodies Negative Negative LAB CHEMISTRY METHOD 03/31/2025 6:11 PM EDT [facility] Blood Venous blood specimen / Unknown Venipuncture / Unknown 03/31/2025 12:11 PM EDT 03/31/2025 12:11 PM EDT Lakesha Silva [facility] BLOOD ORDERABLES Final Res ult Performing Organization Address City/[facility]/ZIP Co de Phone Number [facility] [address] [place] [address], [place] [phone] * Thyroid stimulating hormone with reflex to free t4 and free t3 (03/25/2025 1:09 PM EDT) TSH 0.62 0.40 - 4.00 mcIU/mL LAB CHEMISTRY METHOD 03/25/2025 7:06 PM EDT [facility] Blood Venous blood specimen / Unknown Venipuncture / Unknown 03/25/2025 1:09 PM EDT 03/25/2025 1:09 PM EDT us Kaya SCHNEIDER LAB BLOOD ORDERABLES Final Resul t Performing Organization Address City/[facility]/ZIP Co de Phone Number [facility] [address] [place] [address], [place] [phone] * Lipid panel with reflex to direct LDL (03/25/2025 1:09 PM EDT) Cholesterol 139 0 - 200 mg/dL LAB CHEMISTRY METHOD 03/25/2025 6:44 PM EDT [facility] Triglycerides 46 0 - 150 mg/dL LAB CHEMISTRY METHOD 03/25/2025 6:44 PM EDT [facility] HDL 48 >=40 mg/dL LAB CHEMISTRY METHOD 03/25/2025 6:44 PM EDT [facility] LDL Calculated 82 0 - 100 mg/dL LAB CHEMISTRY METHOD 03/25/2025 6:44 PM EDT [facility] VLDL Cholesterol Levi 9.2 mg/dL LAB CHEMISTRY METHOD 03/25/2025 6:44 PM EDT [facility] Non HDL Chol. (LDL+VLDL) 91 <145 mg/dL LAB CHEMISTRY METHOD 03/25/2025 6:44 PM EDT [facility] Chol/HDL Ratio 2.9 0.0 - 4.4 LAB CHEMISTRY METHOD 03/25/2025 6:44 PM T [facility] Blood Venous blood specimen / Unknown Venipuncture / Unknown 03/25/2025 1:09 PM EDT 03/25/2025 1:09 PM EDT us Kaya SCHNEIDER LAB BLOOD ORDERABLES Final Resul t Performing Organization Address [facility]/ZIP Co de Phone Number [facility] [address] [place] [address], [place] [phone] * (ABNORMAL) CBC auto differential (03/25/2025 1:09 PM EDT) [facility] WBC 5.1 4.8 - 10.8 K/mcL LAB HEMETOLOGY METHOD 03/25/2025 6:03 PM [facility] RBC 4.00 3.80 - 4.80 M/mcL LAB HEMETOLOGY METHOD 03/25/2025 6:03 PM [facility] Hemoglobin 8.7(L) 11.5 - 16.0 g/dL LAB HEMETOLOGY METHOD 03/25/2025 6:03 PM [facility] Hematocrit 30.9(L) 35.0 - 47.0 % LAB HEMETOLOGY METHOD 03/25/2025 6:03 PM [facility] MCV 77.4(L) 79.0 - 98.0 FL LAB HEMETOLOGY METHOD 03/25/2025 6:03 PM [facility] MCH 21.8(L) 27.0 - 32.0 pcg LAB HEMETOLOGY METHOD 03/25/2025 6:03 PM [facility] MCHC 28.2(L) 32.0 - 37.0 g/dL LAB HEMETOLOGY METHOD 03/25/2025 6:03 PM [facility] RDW 15.3(H) 11.0 - 15.0 % LAB HEMETOLOGY METHOD 03/25/2025 6:03 PM [facility] Platelets 251 130 - 400 K/mcL LAB HEMETOLOGY METHOD 03/25/2025 6:03 PM [facility] MPV 12.0(H) 7.0 - 11.0 FL LAB HEMETOLOGY METHOD 03/25/2025 6:03 PM [facility] NRBC 0.0 <1.0 % LAB HEMETOLOGY METHOD 03/25/2025 6:03 PM [facility] NRBC Absolute 0.00 <0.10 K/mcL LAB HEMETOLOGY METHOD 03/25/2025 6:03 PM [facility] Neutrophils Relative 62.8 % LAB HEMETOLOGY METHOD 03/25/2025 6:03 PM [facility] Lymphocytes Relative 28.9 % LAB HEMETOLOGY METHOD 03/25/2025 6:03 PM [facility] Monocytes Relative 6.9 % LAB HEMETOLOGY METHOD 03/25/2025 6:03 PM [facility] Eosinophils Relative 1.0 % LAB HEMETOLOGY METHOD 03/25/2025 6:03 PM [facility] Basophils Relative 0.2 % LAB HEMETOLOGY METHOD 03/25/2025 6:03 PM [facility] Immature Granulocytes Relative 0.2 % LAB HEMETOLOGY METHOD 03/25/2025 6:03 PM [facility] Neutrophils Absolute 3.18 1.50 - 7.00 K/mcL LAB HEMETOLOGY METHOD 03/25/2025 6:03 PM [facility] Lymphocytes Absolute 1.46 1.00 - 5.00 K/mcL LAB HEMETOLOGY METHOD 03/25/2025 6:03 PM [facility] Monocytes Absolute 0.35 0.20 - 1.00 K/mcL LAB HEMETOLOGY METHOD 03/25/2025 6:03 PM [facility] Eosinophils Absolute 0.05 0.00 - 0.50 K/mcL LAB HEMETOLOGY METHOD 03/25/2025 6:03 PM [facility] Basophils Absolute 0.01 0.00 - 0.20 K/mcL LAB HEMETOLOGY METHOD 03/25/2025 6:03 PM [facility] Immature Granulocytes Absolute 0.01 0.00 - 0.03 K/mcL LAB HEMETOLOGY METHOD 03/25/2025 6:03 PM EDT [facility] Blood Venous blood specimen / Unknown Venipuncture / Unknown 03/25/2025 1:09 PM EDT 03/25/2025 1:09 PM EDT us Kaya Omega PA LAB BLOOD ORDERABLES Final Resul t Performing Organization Address [facility] de Phone Number [facility] [address] [place] [address], [place] [phone] * (ABNORMAL) Iron and TIBC (03/25/2025 1:09 PM EDT) Iron 25(L) 40 - 150 mcg/dL LAB CHEMISTRY METHOD 03/25/2025 6:44 PM EDT [facility] TIBC 430 250 - 450 mcg/dL LAB CHEMISTRY METHOD 03/25/2025 6:44 PM EDT [facility] Iron Saturation 6(L) 15 - 50 % LAB CHEMISTRY METHOD 03/25/2025 6:44 PM EDT [facility] Blood Venous blood specimen / Unknown Venipuncture / Unknown 03/25/2025 1:09 PM EDT 03/25/2025 1:09 PM EDT us Kaya Duff PA LAB BLOOD ORDERABLES Final Resul t Performing Organization Address [facility] de Phone Number [facility] [address] [place] [address], [place] [phone] * (ABNORMAL) Vitamin D 25 hydroxy (03/25/2025 1:09 PM EDT) Vit D, 25-Hydroxy 7.7(L) 30.0 - 80.0 ng/mL LAB CHEMISTRY METHOD 03/25/2025 7:08 PM EDT [facility] Blood Venous blood specimen / Unknown Venipuncture / Unknown 03/25/2025 1:09 PM EDT 03/25/2025 1:09 PM EDT us Kaya SCHNEIDER LAB BLOOD ORDERABLES Final Resul t [facility] [address] [place] [address], [place] [phone] * Vitamin B12 (03/25/2025 1:09 PM EDT) [facility] Vitamin B-12 868 250 - 900 pcg/mL LAB CHEMISTRY METHOD 03/25/2025 6:44 PM EDT [facility] Blood Venous blood specimen / Unknown Venipuncture / Unknown 03/25/2025 1:09 PM EDT 03/25/2025 1:09 PM EDT us Kaya SCHNEIDER LAB BLOOD ORDERABLES Final Resul t Performing Organization Address City/[facility]/ZIP Co de Phone Number [facility] [address] [place] [address], [place] [phone] * (ABNORMAL) Comprehensive metabolic panel (03/25/2025 1:09 PM EDT) [facility] Sodium 141 133 - 145 mmol/L LAB CHEMISTRY METHOD 03/25/2025 6:44 PM EDT [facility] Potassium 3.5 3.5 - 5.5 mmol/L LAB CHEMISTRY METHOD 03/25/2025 6:44 PM EDT [facility] Chloride 108 96 - 110 mmol/L LAB CHEMISTRY METHOD 03/25/2025 6:44 PM EDT [facility] CO2 26 21 - 32 mmol/L LAB CHEMISTRY METHOD 03/25/2025 6:44 PM EDT [facility] Anion Gap 7 3 - 11 LAB CHEMISTRY METHOD 03/25/2025 6:44 PM EDT [facility] Glucose 90 70 - 100 mg/dL LAB CHEMISTRY METHOD 03/25/2025 6:44 PM [facility] BUN 8 5 - 25 mg/dL LAB CHEMISTRY METHOD 03/25/2025 6:44 PM [facility] Creatinine 0.48(L) 0.50 - 1.10 mg/dL LAB CHEMISTRY METHOD 03/25/2025 6:44 PM [facility] eGFR 133 >=60 mL/min/1. 73m2 LAB CHEMISTRY METHOD 03/25/2025 6:44 PM [facility] Comment:Calculation based on the??Chronic Kidney Disease Epidemiology Collaboration (CKD-EPI) equation refit??without adjustment for race. BUN/Creatinine Ratio 16.7 LAB CHEMISTRY METHOD 03/25/2025 6:44 PM [facility] Calcium 8.9 8.5 - 10.5 mg/dL LAB CHEMISTRY METHOD 03/25/2025 6:44 PM [facility] AST (SGOT) 11 10 - 42 unit/L LAB CHEMISTRY METHOD 03/25/2025 6:44 PM [facility] ALT (SGPT) 14 10 - 60 unit/L LAB CHEMISTRY METHOD 03/25/2025 6:44 PM [facility] Alkaline Phosphatase 83 42 - 121 unit/L LAB CHEMISTRY METHOD 03/25/2025 6:44 PM [facility] Total Protein 7.3 6.0 - 8.0 g/dL LAB CHEMISTRY METHOD 03/25/2025 6:44 PM [facility] Albumin 3.9 3.2 - 5.0 g/dL LAB CHEMISTRY METHOD 03/25/2025 6:44 PM [facility] Total Bilirubin 0.4 0.0 - 1.4 mg/dL LAB CHEMISTRY METHOD 03/25/2025 6:44 PM [facility] Blood Venous blood specimen / Unknown Venipuncture / Unknown 03/25/2025 1:09 PM EDT 03/25/2025 1:09 PM EDT us Kaya Omega SCHNEIDER LAB BLOOD ORDERABLES Final Resul t [facility] [address] [place] [address], [place] [phone] * Depression Screening (02/25/2024) [facility] Depression Screening abstracted us Historical Provider MD HEALTH MAINTENANCE Final Result from Last 3 Months or Most Recently Relevant to Health Maintenance Insurance [facility] [employer] Care Teams Real Estate Associate Attorney Relationship Specialty Start Date End Date Yaya Lamas MD [address] [place] [address] PCP - General 12/05/22
== END 2025-04-28 10:15 | disposition home or self-care (01) ==
LOC: HO.HBS 09:34
PROVIDERS: PCP Pediatrics; Visit Provider Physician Assistant Surgical
DX: K21.9 Gastro-esophageal reflux disease without esophagitis (principal); Z90.3 Acquired absence of stomach [part of]; Z98.84 Bariatric surgery status
CPT/HCPCS: 99213

== ENCOUNTER → 2025-04-28 09:33 | Outpatient (BNVA) | payer OTHER, SELFPAY | PROVIDERS: PCP Pediatrics; Visit Provider Physician Assistant Surgical | DX: K21.9 Gastro-esophageal reflux disease without esophagitis (principal); Z98.84 Bariatric surgery status | CPT/HCPCS: 99212 ==

== ENCOUNTER 2025-06-08 08:38 | Outpatient (AMB) | payer OTHER, SELFPAY ==
--- NOTE | 2025-06-08 08:43 | A.OFFVIS_ITS ---
VS Expanded 06/08/25 08:54 BP 111/56 L Blood Pressure Location Rt brachial Blood Pressure Position Sitting Pulse 83 Pulse Source Pulse Oximeter Temp 97.4 F Temperature Source Temporal Artery Scan Pulse Oximetry 100 Oxygen Delivery Method Room Air Height 5 ft 4 in Weight 128 lb BMI 22.0 Body Fat % 28.6 Body Fat Mass 36.6 Fat Free Mass 91.2 Visceral Fat Rating 2.0 Body Water % 51.4 Body Water Mass 65.6 Muscle Mass/Score 86.6 Basal Metabolic Rate/Score 1,279 Intake Visit Reasons: OV PO LSG 04/07/24 Supervisor/Port Director Required: Yes Supervisor/Port Director Services: Supervisor/Port Director Present Supervisor/Port Director Name: hospital cmi Allergies No Known Allergies Allergy (Verified 06/08/25 08:56) Medication List - Last Reconciled 06/08/25 by WYATT Martinez bisacodyl (Gentle Laxative (bisacodyl)) 10 mg SD DAILY PRN bisacodyl (Dulcolax (bisacodyl)) 10 mg SD DAILY PRN iron,carbonyl-vitamin C 65 mg iron- 125 mg (Vitron-C) 1 tab PO DAILY 90 days lorazepam 0.5 mg PO TID PRN sennosides (senna) 17.2 mg (2 x 8.6 mg) PO BEDTIME PRN vitamin A palmitate 10,000 units PO DAILY HPI Comments Details: This?a?25?yo female who is s/p LSG without hiatal hernia repair on?04/07/2024. Presents for 1 year 2 month post op visit. Weight today is 128 pounds, with a BMI of 22. There has been a 113 pound weight loss,(initial weight 241 pounds) since starting the program on 05/29/2023 reflecting a 46.8 % total body weight l oss and a weight loss of 92.4 pounds since surgery (operative weight 220.4 pounds) reflecting a 41.9 % TBWL since surgery. Reports infrequent but normal bowel movements every 3 days and uses stool softeners regularly. She states that since last visit she states she is . She states that her first appointment with floor covering printer assistant on [facility] is on 06/20/25. She states her last menstrual period was May 08. She took a home test and had blood work at urgent care about 5 days ago. She is having vomiting before and after solid foods but no trouble with liquid protein. This has only been for the last couple of weeks since finding out she was . She stopped the effexor about 2 weeks ago as she has been forgetting to take it. Taking celebrate mvi tablet without difficulty Present meal plan includes: Celebrate rebuild 2 shakes with 2 scoops each, 7am, 2 pm 4 forks of protein and 4 forks of vegetables 530 pm water to 64 oz per day. ? Exercise routine includes: treadmill, 2 hr daily, speed 5, incline 5-10, PFSH Medical History Anemia Depression GERD (gastroesophageal reflux disease) Hx of transfusion of packed red blood cells Insomnia Surgical History S/P laparoscopic sleeve gastrectomy Hx of section Family History Mother Anemia Factor 5 Leiden mutation, heterozygous Son No problems noted. Son No problems noted. Daughter No problems noted. Social History Household Members: Family Housing: Apartment Are you a primary day care aide to a significant other at home: No Do you presently have visiting nurse or other home services: No Alcohol intake: never Patient Tobacco Use Status: Never used Tobacco service: No Current occupational status: employed Physical Exam Vital Signs: Last Vital Signs Temp 97.4 F 06/08/25 08:54 Pulse 83 06/08/25 08:54 BP 111/56 L 06/08/25 08:54 Pulse Ox 100 06/08/25 08:54 Oxygen Delivery Method Room Air 06/08/25 08:54 BMI result Body Mass Index 22.0 Const General: healthy appearing and no acute distress Resp Effort & Inspection: normal respiratory effort Auscultation: clear to auscultation bilaterally Cardio Rate: regular rate Rhythm: regular rhythm GI Auscultation: normal bowel sounds Extrem General: Yes normal to inspection Assessment & Plan Assessment & Plan (1) S/P laparoscopic sleeve gastrectomy: Code(s): Z98.84 - Bariatric surgery status Category: Surgical Plan: Patient reports she now has early . She has her 1st appointment with appraiser oil and water in 12 days. She will need her vitamin levels followed closely. She does continue to take multivitamin as well as iron. She stopped taking her Effexor a proximally 2 weeks ago. I advised her to take consideration to call the prescribing physician to discuss this given the noncompliance and new . She was advised she is going to be a higher risk given her relatively recent sleeve gastrectomy performed approximately 1 year 2 months ago. She was told that she knew was discouraged for at least 18 months after surgery, but at this point, she will follow up with appraiser oil and water. With regards to her intolerance to solids, she certainly may increase her shakes to have celebrate rebuild, 2 scoops, x2 and 1 scoop x1. She may adjust to have her food in the morning and if that is the case she can certainly move the schedule of the shakes accordingly. We will have her return to the office in approximately 2 months
--- OUTSIDE RECORDS SUMMARY | 2025-06-08 08:44 | XMS_ITS | Clinical Summary ---
Author Organization [facility] [address] [place] [address] [place] [address] Phone Care Team Providers Care Patient Financial Representative Name Role Phone Yaya Lamas MD Primary [...] obesity with BMI of 4 0.0-44.9, adult (CMS/FORMERLY [facility] V24, CMS/FORMER[facility] V28) 10/11/2024 03/21/2025 Obesity (BMI 30-39.9) 06/02/20202024 Encounters Date Type Department Care Team Description 04/06/2025 Telephone Obstetrics and Gynecology - [address] [phone] Colleen Latham MA Results 03/31/2025 11:15 AM EDT Office Visit Obstetrics and Gynecology - [address] [phone] Lakesha Silva CNM Encounter for gynecological examination without abnormal finding (Primary Dx); Intrauterine device surveillance; Screen for STD (sexually transmitted disease); Encounter for IUD removal; control counseling; Menorrhagia with regular cycle 03/21/2025 1:00 PM EDT Office Visit [facility] [address] [phone] Kaya Duff PA Iron deficiency anemia due [...] 86 03/31/2025 11:43 AM EDT Temperature 36.5 C (97.7 F) 03/21/2025 12:58 PM EDT Respiratory Rate 16 03/21/2025 12:58 PM EDT [...] of Health Screening 10/27/2022 COVID-19 Vaccine ( season) 2024 Depression Screening 02/24/2025 02/25/2024 Influenza Vaccine (#1) 2025 10/24/2020 Cervical Cancer Screening: Pap Smear [...] 5 Years) and At-Risk Patients (6 to 49 Years) Aged Out No longer eligible based on patient's age to complete this topic RSV Immunization Patients Under 20 months Aged Out No longer eligible based on patient's age to complete this topic Varicella Vaccines Aged Out No longer eligible based on patient's age to complete this topic Procedures Procedure Name Priority Date/Time Associated Diagnosis Comments TN REMOVAL INTRAUTERINE DEVICE Routine 03/31/2025 1:04 PM [...] EDT Need for hepatitis C screening test HM DEPRESSION SCREENING Routine 02/25/2024 from Last 3 Months or Most Recently Relevant to Health Maintenance Results * TN REMOVAL INTRAUTERINE DEVICE (03/31/2025 1:04 PM EDT) Lakesha Lora CNM - 03/31/2025 1:04 PM EDT Lakesha Silva CNM 03/31/2025 1:06 PM IUD Removal Date/Time: 03/31/2025 1:04 PM Performed by: Lakesha Silva CNM Authorized by: Lakesha Silva CNM Informed Consent: Health status cleared: Yes Procedure/treatment, purpose, treatment alternatives, risks/potential complications and benefits explained: yes Risk/complications/benefits details: Per consent form Patient questions answered: yes Patient agrees, verbalizes understanding, and wants to proceed: yes Consent given by: Patient Informed consent discussion completed by Physician/ARPAN with patient: Written; patient signed and dated; copy to patient Removal Procedure: Strings visible: yes Removal device: Ring forceps Removal reason: Desires removal Removal successful: yes Complications: no Comments: Postprocedure care reviewed. Condoms encouraged Lakesha Silva CNM Lakesha Silva CNM IN CLINIC/BEDSIDE ORDERABLES F inal Result * Chlamydia trachomatis and neisseria gonorrhoeae by tma, thinprep (03/31/2025 12:19 PM EDT) N. gonorrhoeae, RNA Probe Negative Negative LAB MICROBIOLOGY METHOD 04/04/2025 11:56 AM EDT [facility] Chlamydia, RNA Probe Negative Negative LAB MICROBIOLOGY METHOD 04/04/2025 11:56 AM EDT [facility] Brushing/Spatula Cervix uteri structure / Unknown 03/31/2025 12:19 PM EDT 04/01/2025 7:24 AM EDT us Lakesha Silva CNM LAB CYTOLOGY ORDERABLES Final Result Performing Organization Address City/[facility]/ZIP Co de Phone Number [facility] [address] [place] [address], [place] [phone] * Trichomonas vaginalis molecular study (03/31/2025 12:19 PM EDT) Trichomonas vaginalis Negative Negative LAB MICROBIOLOGY METHOD 04/04/2025 12:06 PM EDT [facility] Brushing/Spatula Cervix uteri structure / Unknown 03/31/2025 12:19 PM EDT 04/01/2025 7:24 AM EDT us Lakesha Silva CNM LAB BLOOD ORDERABLES Final Res ult [facility] [address] [place] [address], [place] [phone] * Pap smear (03/31/2025 12:19 PM EDT) Interpretation Negative for intraepithelial lesion or malignancy 04/05/2025 1:24 PM EDT [facility] General Categorization Negative 04/05/2025 1:24 PM EDT [facility] Other Findings Shift in abelardo suggestive of bacterial vaginosis 04/05/2025 1:24 PM EDT [facility] LMP 03/08/2025 04/05/2025 1:24 PM EDT [facility] Specimen Adequacy Satisfactory for evaluation, endocervical/roman sformation zone component present 04/05/2025 1:24 PM EDT [facility] Pap Methodology Liquid Based Pap Test 04/05/2025 1:24 PM EDT [facility] Disclaimer The Pap test is a screening test which carries an inherent false negative rate. These test results should be correlated with the patient's clinical findings and history. This Pap test was processed using an automated screening system. Technical cytopathology services provided by [facility], at [address] [place] [id number] (CLIA # [id number]/Lesly Campos MD, Glaciologist.) 04/05/2025 1:24 PM EDT [facility] Console Pap Interpretation Reported 04/05/2025 1:24 PM EDT [facility] Brushing/Spatula Cervix uteri structure / Unknown 03/31/2025 12:19 PM EDT 03/31/2025 12:19 PM EDT Lakesha RAY LAB CYTOLOGY ORDERABLES Final Result [facility] [address] [place] [address], * Hepatitis C antibody (03/31/2025 12:11 PM EDT) Only the most recent of2 resultswithin the time period is included. Hepatitis C Antibody Negative Negative LAB CHEMISTRY METHOD 03/31/2025 4:43 PM EDT [facility] Blood Venous blood specimen / Unknown Venipuncture / Unknown 03/31/2025 12:11 PM EDT 03/31/2025 12:11 PM EDT us Lakesha RAY LAB BLOOD ORDERABLES Final Res ult Performing Organization Address [facility] Co de Phone Number [facility] [address] [place] [address], [place] [phone] * HIV 1,2 antibody, p24 antigen with reflex to differentiation (03/31/2025 12:11 PM EDT) Only the most recent of2 resultswithin the time period is included. HIV Combo AB/AG Negative Negative LAB CHEMISTRY METHOD 03/31/2025 4:44 PM EDT [facility] Blood Venous blood specimen / Unknown Venipuncture / Unknown 03/31/2025 12:11 PM EDT 03/31/2025 12:11 PM EDT Narrative [facility] - 03/31/2025 4:44 PM EDT This assay is a 4th generation assay allowing for earlier detection of HIV infection by detecting the presence of the HIV-1 p24 antigen as well as the traditional antibodies to HIV type 1 (including group O) and type 2. Use of a 4th generation assay is the current CDC recommendation for HIV screening. us Lakesha RAY LAB BLOOD ORDERABLES Final Res ult Performing Organization Address City/[facility]/ZIP Co de Phone Number [facility] [address] [place] [address], [place] [phone] * Hepatitis B surface antigen with reflex to confirmation (03/31/2025 12:11 PM EDT) Hepatitis B Surface Ag Negative Negative LAB CHEMISTRY METHOD 03/31/2025 4:15 PM EDT [facility] Blood Venous blood specimen / Unknown Venipuncture / Unknown 03/31/2025 12:11 PM EDT 03/31/2025 12:11 PM EDT Narrative [facility] - 03/31/2025 4:15 PM EDT Over the counter supplements containing high doses of biotin may interfere with this assay. If interference is suspected, patients shoud be retested after refraining from biotin supplements for 72 hours. us Lakesha Kwong Silva FLOR LAB BLOOD ORDERABLES Final Res ult Performing Organization Address [facility] Co de Phone Number [facility] [address] [place] [address], [place] [phone] * Treponema pallidum antibody with reflex to RPR and particle agglutination (03/31/2025 12:11 PM EDT) Pathologist [facility] T. Pallidum Antibodies Negative Negative LAB CHEMISTRY METHOD 03/31/2025 6:11 PM EDT [facility] Blood Venous blood specimen / Unknown Venipuncture / Unknown 03/31/2025 12:11 PM EDT 03/31/2025 12:11 PM EDT Lakesha RAY LAB BLOOD ORDERABLES Final Res ult Performing Organization Address [facility] de Phone Number [facility] [address] [place] [address], [place] [phone] * Thyroid stimulating hormone with reflex to free t4 and free t3 (03/25/2025 1:09 PM EDT) TSH 0.62 0.40 - 4.00 mcIU/mL LAB CHEMISTRY METHOD 03/25/2025 7:06 PM EDT [facility] Blood Venous blood specimen / Unknown Venipuncture / Unknown 03/25/2025 1:09 PM EDT 03/25/2025 1:09 PM EDT Kaya SCHNEIDER LAB BLOOD ORDERABLES Final Resul t Performing Organization Address [facility] Co de Phone Number [facility] [address] [place] [address], [place] [phone] * Lipid panel with reflex to direct LDL (03/25/2025 1:09 PM EDT) [facility] Cholesterol 139 0 - 200 mg/dL LAB CHEMISTRY METHOD 03/25/2025 6:44 PM EDT [facility] Triglycerides 46 0 - 150 mg/dL LAB CHEMISTRY METHOD 03/25/2025 6:44 PM EDT [facility] HDL 48 >=40 mg/dL LAB CHEMISTRY METHOD 03/25/2025 6:44 PM EDT [facility] LDL Calculated 82 0 - 100 mg/dL LAB CHEMISTRY METHOD 03/25/2025 6:44 PM EDT [facility] VLDL Cholesterol Levi 9.2 mg/dL LAB CHEMISTRY METHOD 03/25/2025 6:44 PM EDT [facility] Non HDL Chol. (LDL+VLDL) 91 <145 mg/dL LAB CHEMISTRY METHOD 03/25/2025 6:44 PM EDT [facility] Chol/HDL Ratio 2.9 0.0 - 4.4 LAB CHEMISTRY METHOD 03/25/2025 6:44 PM EDT [facility] Blood Venous blood specimen / Unknown Venipuncture / Unknown 03/25/2025 1:09 PM EDT 03/25/2025 1:09 PM EDT us Kaya SCHNEIDER LAB BLOOD ORDERABLES Final Resul t [facility] [address] [place] [address], [place] [phone] * (ABNORMAL) CBC auto differential (03/25/2025 1:09 PM EDT) [facility] WBC 5.1 4.8 - 10.8 K/mcL LAB HEMETOLOGY METHOD 03/25/2025 6:03 PM EDT [facility] RBC 4.00 3.80 - 4.80 M/mcL LAB HEMETOLOGY METHOD 03/25/2025 6:03 PM [facility] Hemoglobin 8.7(L) 11.5 - 16.0 g/dL LAB HEMETOLOGY METHOD 03/25/2025 6:03 PM [facility] Hematocrit 30.9(L) 35.0 - 47.0 % LAB HEMETOLOGY METHOD 03/25/2025 6:03 PM [facility] MCV 77.4(L) 79.0 - 98.0 FL LAB HEMETOLOGY METHOD 03/25/2025 6:03 PM [facility] MCH 21.8(L) 27.0 - 32.0 pcg LAB HEMETOLOGY METHOD 03/25/2025 6:03 PM [facility] MCHC 28.2(L) 32.0 - 37.0 g/dL LAB HEMETOLOGY METHOD 03/25/2025 6:03 PM [facility] RDW 15.3(H) 11.0 - 15.0 % LAB HEMETOLOGY METHOD 03/25/2025 6:03 PM [facility] Platelets 251 130 - 400 K/mcL LAB HEMETOLOGY METHOD 03/25/2025 6:03 PM [facility] MPV 12.0(H) 7.0 - 11.0 FL LAB HEMETOLOGY METHOD 03/25/2025 6:03 PM [facility] NRBC 0.0 <1.0 % LAB HEMETOLOGY METHOD 03/25/2025 6:03 PM [facility] NRBC Absolute 0.00 <0.10 K/mcL LAB HEMETOLOGY METHOD 03/25/2025 6:03 PM [facility] Neutrophils Relative 62.8 % LAB HEMETOLOGY METHOD 03/25/2025 6:03 PM [facility] Lymphocytes Relative 28.9 % LAB HEMETOLOGY METHOD 03/25/2025 6:03 PM [facility] Monocytes Relative 6.9 % LAB HEMETOLOGY METHOD 03/25/2025 6:03 PM [facility] Eosinophils Relative 1.0 % LAB HEMETOLOGY METHOD 03/25/2025 6:03 PM [facility] Basophils Relative 0.2 % LAB HEMETOLOGY METHOD 03/25/2025 6:03 PM [facility] Immature Granulocytes Relative 0.2 % LAB HEMETOLOGY METHOD 03/25/2025 6:03 PM [facility] Neutrophils Absolute 3.18 1.50 - 7.00 K/mcL LAB HEMETOLOGY METHOD 03/25/2025 6:03 PM [facility] Lymphocytes Absolute 1.46 1.00 - 5.00 K/mcL LAB HEMETOLOGY METHOD 03/25/2025 6:03 PM [facility] Monocytes Absolute 0.35 0.20 - 1.00 K/mcL LAB HEMETOLOGY METHOD 03/25/2025 6:03 PM [facility] Eosinophils Absolute 0.05 0.00 - 0.50 K/mcL LAB HEMETOLOGY METHOD 03/25/2025 6:03 PM [facility] Basophils Absolute 0.01 0.00 - 0.20 K/mcL LAB HEMETOLOGY METHOD 03/25/2025 6:03 PM [facility] Immature Granulocytes Absolute 0.01 0.00 - 0.03 K/mcL LAB HEMETOLOGY METHOD 03/25/2025 6:03 PM [facility] Blood Venous blood specimen / Unknown Venipuncture / Unknown 03/25/2025 1:09 PM EDT 03/25/2025 1:09 PM EDT us Kaya Duff PA LAB BLOOD ORDERABLES Final Resul t Performing Organization Address [facility]/ZIP Co de Phone Number [facility] [address] [place] [address], [place] [phone] * (ABNORMAL) Iron and TIBC (03/25/2025 1:09 PM EDT) Iron 25(L) 40 - 150 mcg/dL LAB CHEMISTRY METHOD 03/25/2025 6:44 PM EDT [facility] TIBC 430 250 - 450 mcg/dL LAB CHEMISTRY METHOD 03/25/2025 6:44 PM EDT [facility] Iron Saturation 6(L) 15 - 50 % LAB CHEMISTRY METHOD 03/25/2025 6:44 PM EDT [facility] Blood Venous blood specimen / Unknown Venipuncture / Unknown 03/25/2025 1:09 PM EDT 03/25/2025 1:09 PM EDT us Kaya Duff PA LAB BLOOD ORDERABLES Final Resul t Performing Organization Address [facility] de Phone Number [facility] [address] [place] [address], [place] [phone] * (ABNORMAL) Vitamin D 25 hydroxy (03/25/2025 1:09 PM EDT) Vit D, 25-Hydroxy 7.7(L) 30.0 - 80.0 ng/mL LAB CHEMISTRY METHOD 03/25/2025 7:08 PM EDT [facility] Blood Venous blood specimen / Unknown Venipuncture / Unknown 03/25/2025 1:09 PM EDT 03/25/2025 1:09 PM EDT us Kaya Duff PA LAB BLOOD ORDERABLES Final Resul t Performing Organization Address City/[facility]/ZIP Co de Phone Number [facility] [address] [place] [address], [place] [phone] * Vitamin B12 (03/25/2025 1:09 PM EDT) [facility] Vitamin B-12 868 250 - 900 pcg/mL LAB CHEMISTRY METHOD 03/25/2025 6:44 PM EDT [facility] Blood Venous blood specimen / Unknown Venipuncture / Unknown 03/25/2025 1:09 PM EDT 03/25/2025 1:09 PM EDT us Kaya Omega SCHNEIDER LAB BLOOD ORDERABLES Final Resul t [facility] [address] [place] [address], [place] [phone] * (ABNORMAL) Comprehensive metabolic panel (03/25/2025 1:09 PM EDT) [facility] Sodium 141 133 - 145 mmol/L LAB CHEMISTRY [facility] Potassium 3.5 3.5 - 5.5 mmol/L LAB CHEMISTRY METHOD 03/25/2025 6:44 PM [facility] Chloride 108 96 - 110 mmol/L LAB CHEMISTRY METHOD 03/25/2025 6:44 PM [facility] CO2 26 21 - 32 mmol/L LAB CHEMISTRY METHOD 03/25/2025 6:44 PM T [facility] Anion Gap 7 3 - 11 LAB CHEMISTRY METHOD 03/25/2025 6:44 PM [facility] Glucose 90 70 - 100 mg/dL LAB CHEMISTRY METHOD 03/25/2025 6:44 PM [facility] BUN 8 5 - 25 mg/dL LAB CHEMISTRY METHOD 03/25/2025 6:44 PM [facility] Creatinine 0.48(L) 0.50 - 1.10 mg/dL LAB CHEMISTRY METHOD 03/25/2025 6:44 PM EDT [facility] eGFR 133 >=60 mL/min/1. 73m2 LAB CHEMISTRY METHOD 03/25/2025 6:44 PM T [facility] Comment:Calculation based on the Chronic Kidney Disease Epidemiology Collaboration (CKD-EPI) equation refit without adjustment for race. BUN/Creatinine Ratio 16.7 LAB CHEMISTRY METHOD 03/25/2025 6:44 PM T [facility] Calcium 8.9 8.5 - 10.5 mg/dL LAB CHEMISTRY METHOD 03/25/2025 6:44 PM [facility] AST (SGOT) 11 10 - 42 unit/L LAB CHEMISTRY METHOD 03/25/2025 6:44 PM [facility] ALT (SGPT) 14 10 - 60 unit/L LAB CHEMISTRY METHOD 03/25/2025 6:44 PM [facility] Alkaline Phosphatase 83 42 - 121 unit/L LAB CHEMISTRY METHOD 03/25/2025 6:44 PM [facility] Total Protein 7.3 6.0 - 8.0 g/dL LAB CHEMISTRY METHOD 03/25/2025 6:44 PM [facility] Albumin 3.9 3.2 - 5.0 g/dL LAB CHEMISTRY METHOD 03/25/2025 6:44 PM [facility] Total Bilirubin 0.4 0.0 - 1.4 mg/dL LAB CHEMISTRY METHOD 03/25/2025 6:44 PM T [facility] Blood Venous blood specimen / Unknown Venipuncture / Unknown 03/25/2025 1:09 PM EDT 03/25/2025 1:09 PM EDT us Kaya SCHNEIDER LAB BLOOD ORDERABLES Final Resul t [facility] [address] [place] [address], * Depression Screening (02/25/2024) Depression Screening abstracted Historical Provider HEALTH MAINTENANCE Final Result from Last 3 Months or Most Recently Relevant to Health Maintenance Insurance [facility] Care Teams Patient Financial Representative Relationship Specialty Start Date End Date Yaya Lamas MD [address] [place] [address] PCP - General 12/05/22
[2025-06-08 08:54] VITALS: BP 111/56; PULSE 83; TEMP 36.3; O2SAT 100; BMI 22.0
== END 2025-06-08 09:18 | disposition home or self-care (01) ==
LOC: HO.HBS 08:39
PROVIDERS: PCP Pediatrics; Visit Provider Physician Assistant Surgical
DX: R11.10 Vomiting, unspecified (principal); Z90.3 Acquired absence of stomach [part of]; Z98.84 Bariatric surgery status
CPT/HCPCS: 99213; G2211

== ENCOUNTER → 2025-06-08 08:38 | Outpatient (BNVA) | payer OTHER, SELFPAY | PROVIDERS: PCP Pediatrics; Visit Provider Physician Assistant Surgical | DX: Z98.84 Bariatric surgery status (principal) | CPT/HCPCS: 99212 ==

== ENCOUNTER 2025-09-14 11:17 | Outpatient (REF) | payer OTHER, SELFPAY ==
[2025-09-14 12:52] LABS: MANUAL DIFF FLAG NO
[2025-09-14 13:43] LABS: Hematocrit 28.0 % (37.0-47.0); Hemoglobin 8.1 g/dl (12.0-16.0); Imm Gran Abs Auto 0.05 X10*3/uL (0.00-0.03); Imm Gran Pct Auto 0.8 % (0.0-0.4); Lymphocytes Absolute Auto 1.1 X10*3/uL (1.2-4.9); Mean Corpuscular HGB Conc 28.9 g/dl (31.0-35.0); Mean Corpuscular Hemoglobin 21.8 pg (27.0-33.0); Mean Corpuscular Volume 75.5 fL (80.0-98.0); NRBC Abs Auto 0.000 X10*3/uL (0.0-0.012); NRBC Pct Auto 0.0 /100WBC (0.0-0.2); Platelet Count 240 X10*3/uL (160-400); Red Blood Count 3.71 X10*6/uL (4.20-5.50); White Blood Count 6.2 X10*3/uL (4.8-10.8)
[2025-09-14 14:26] LABS: Alanine Aminotransferase 14 U/L (0-31); Albumin Level 3.6 g/dL (3.5-5.0); Alkaline Phosphatase 89 U/L (39-117); Anion Gap 6 (12-20); Aspartate Amino Transferase 22 U/L (5-31); Blood Urea Nitrogen 11 mg/dL (9-16); Calcium 8.6 mg/dL (8.4-10.2); Carbon Dioxide 26 mmol/L (22-29); Chloride 111 mmol/L (96-108); Cholesterol 169 mg/dL (<200); Estimated Glomerular Filt Rate > 60; HDL Cholesterol 59 mg/dL (>40); Iron 16 mcg/dL (30-160); Percent Iron Saturation 4 % (15-50); Potassium 3.7 mmol/L (3.3-5.1); Sodium 139 mmol/L (135-145); Total Iron Binding Capacity 379 mcg/dL (228-428); Total Protein 6.6 g/dL (6.5-8.0); Triglycerides 62 mg/dL (<150); Unsaturated Iron Binding 363 ug/dL
[2025-09-14 14:37] LABS: Ferritin 9 ng/mL (10-122)
[2025-09-14 14:42] LABS: Folate 11.8 ng/mL (> or = 4.0); Vitamin B12 457 pg/mL (200-900)
== END 2025-09-14 11:18 | disposition home or self-care (01) ==
LOC: HO.LAB 11:17
PROVIDERS: PCP Pediatrics; Visit Provider Physician Assistant Surgical
DX: Z34.90 Encounter for supervision of normal pregnancy, unspecified, unspecified trimester (principal); Z98.84 Bariatric surgery status; Z79.899 Other long term (current) drug therapy
CPT/HCPCS: 36415; 80053; 80061; 82306; 82607; 82728; 82746; 83036; 83525; 83540; 84425; 84443; 84590; 84630; 85025; 86140; 99212

== ENCOUNTER 2025-09-14 11:17 | Outpatient (AMB) | payer OTHER, SELFPAY ==
--- NOTE | 2025-09-14 11:20 | MHC.OFFVISWM ---
VS Expanded 09/14/25 11:25 BP 103/57 L Blood Pressure Location Rt brachial Blood Pressure Position Sitting Pulse 89 Pulse Source Pulse Oximeter Temp 97.6 F Temperature Source Temporal Artery Scan Pulse Oximetry 99 Oxygen Delivery Method Room Air Height 5 ft 4 in Weight 145 lb BMI 24.9 Intake Visit Reasons: OV PO LSG 04/07/24 Clinical Nutritionist Required: Yes Clinical Nutritionist Name: Magalis Mike, [id number] Allergies No Known Allergies Allergy (Verified 09/14/25 11:26) Medication List - Last Reconciled 09/14/25 by WYATT Gooden bisacodyl (Gentle Laxative (bisacodyl)) 10 mg FL DAILY PRN bisacodyl (Dulcolax (bisacodyl)) 10 mg FL DAILY PRN iron,carbonyl-vitamin C 65 mg iron- 125 mg (Vitron-C) 1 tab PO DAILY 90 days lorazepam 0.5 mg PO TID PRN sennosides (senna) 17.2 mg (2 x 8.6 mg) PO BEDTIME PRN venlafaxine ER (Effexor XR) 150 mg PO DAILY vitamin A palmitate 10,000 units PO DAILY HPI Comments Details: This a 25 yo female who is s/p LSG without hiatal hernia repair on 04/07/2024. Presents for 17 month post op visit. Weight today is 145 pounds, with a BMI of 24.9. Pt is currently and following with OB. She states her last menstrual period was May 08. Her due date is around February 07. She feels better from a nausea standpoint but reports her hemoglobin is low, however has not had bloodwork recently. She has not followed up with hematology since prior to bariatric surgery. She stopped the effexor about 2 weeks ago as she has been forgetting to take it. Taking celebrate mvi tablet without difficulty. Present meal plan includes: Celebrate rebuild 2 shakes with 2 scoops each, 7am, 2 pm 4 forks of protein and 4 forks of vegetables 530 pm water to 64 oz per day Exercise routine includes: treadmill, 2 hr daily, speed 5, incline 5-10 PFSH Medical History Anemia Depression GERD (gastroesophageal reflux disease) Hx of transfusion of packed red blood cells Insomnia Surgical History S/P laparoscopic sleeve gastrectomy Hx of section Family History Mother Anemia Factor 5 Leiden mutation, heterozygous Son No problems noted. Son No problems noted. Daughter No problems noted. Social History Household Members: Family Housing: Apartment Are you a primary home health caregiver to a significant other at home: No Do you presently have visiting nurse or other home services: No Alcohol intake: never Patient Tobacco Use Status: Never used Tobacco service: No Current occupational status: employed Physical Exam Vital Signs: Last Vital Signs Temp 97.6 F 09/14/25 11:25 Pulse 89 09/14/25 11:25 BP 103/57 L 09/14/25 11:25 Pulse Ox 99 09/14/25 11:25 Oxygen Delivery Method Room Air 09/14/25 11:25 BMI result Body Mass Index 24.9 Assessment & Plan Assessment & Plan (1) S/P laparoscopic sleeve gastrectomy: Code(s): Z98.84 - Bariatric surgery status Category: Surgical (2) : Code(s): Z34.90 - Encounter for supervision of normal , unspecified, unspecified trimester Category: Medical Plan Pt doing better with her protein intake and meal plan. Reports she received after bariatric surgery handout at last visit. Pt has gained 17lb so far in , discussed goal of 25-35lb total weight gain over entire . Labs ordered, will monitor anemia. Consider referral back to heme if levels remain low. RTC 3-4 months, can repeat labs again. Orders: Orders Ferritin Today Z98.84 - Bariatric surgery status TSH reflex Free T4 Today Z98.84 - Bariatric surgery status Vitamin B1 Today Z98.84 - Bariatric surgery status Zinc Today Z98.84 - Bariatric surgery status IRON PROFILE Today Z98.84 - Bariatric surgery status Insulin Today Z98.84 - Bariatric surgery status Vitamin D 25-OH Total Today Z98.84 - Bariatric surgery status C Reactive Protein Today Z98.84 - Bariatric surgery status Vitamin A Today Z98.84 - Bariatric surgery status Vitamin B12 and Folate Today Z98.84 - Bariatric surgery status Comprehensive Met. Panel Today Z - Bariatric surgery status Complete Blood Count Auto Diff Today Z. - Bariatric surgery status Lipid Panel Today Z - Bariatric surgery status Hemoglobin A1c Today Z98 - Bariatric surgery status Medications: Refilled iron,carbonyl-vitamin C 65 mg iron- 125 mg (Vitron-C) swallow whole; do not chew/break/dissolve/open 1 tab PO DAILY 90 tabs 0RF 90 days
[2025-09-14 11:25] VITALS: BP 103/57; PULSE 89; TEMP 36.4; O2SAT 99; BMI 24.9
--- OUTSIDE RECORDS SUMMARY | 2025-09-14 15:26 | XMS_ITS | Clinical Summary ---
Author Organization [facility] [address] [place] [address] [place] [phone] Phone Care Team Providers Care [employer]ch [employer]at Joiner Name Role Phone Yaya Laams MD Primary Care Provider Allergies No known [...] obesity with BMI of 4 0.0-44.9, adult ([facility] V24, [facility] V28) 10/11/2024 03/21/2025 Obesity (BMI 30-39.9) 06/02/20202024 Immunizations Immunization Administration Dates Next Due Influenza Quadravalent, MDCK [...] g Live Births 3 3 2 1 3 Date Outcome GA Total Labor Labor/2nd/3rd [...] 2017 Social Influencers of Health Screening 10/27/2022 Depression Screening 11/24/2024 02/25/2024 HPV Vaccines (1 - 3-dose SCDM series) 2025 COVID-19 Vaccine (2023- season) 2025 Influenza Vaccine (#1) 2025 10/24/2020 Cervical Cancer Screening: Pap Smear 03/31/2028 03/31/2025, 11/03/2020, 11/03/2020, Additional history exists DTaP,Tdap,and Td Vaccines (2 - Td or Tdap) 02/01/2030 02/02/2020 Cholesterol Screening (Lipid Panel) 03/25/2030 03/25/2025, 06/22/2020 RSV Immunization Adult Patients (1 - 1-dose 75+ series) 2073 Gonorrhea/Chlamydia Screening Discontinued 03/31/2025, 11/03/2020 HIV Screening [...] Procedure Name Priority Date/Time Associated Diagnosis Comments PAP SMEAR Routine 03/31/2025 12:19 PM EDT Encounter for gynecological examination without abnormal finding CHLAMYDIA TRACHOMATIS AND NEISSERIA GONORRHOEAE BY TMA, THINPREP Routine 03/31/2025 12:19 PM EDT Encounter for gynecological examination without abnormal finding HEPATITIS C ANTIBODY Routine 03/31/2025 12:11 PM EDT Screen for STD (sexually transmitted disease) HIV 1, 2 ANTIBODY, P24 ANTIGEN WITH REFLEX TO DIFFERENTIATION Routine 03/31/2025 12:11 PM EDT Screen for STD (sexually transmitted disease) LIPID PANEL WITH REFLEX TO DIRECT LDL Routine 03/25/2025 1:09 PM EDT Encounter for screening for lipid disorder HM DEPRESSION SCREENING Routine 02/25/2024 from Last 3 Months or Most Recently Relevant to Health Maintenance Results * Chlamydia trachomatis and neisseria gonorrhoeae by tma, thinprep (03/31/2025 12:19 PM EDT) N. gonorrhoeae, RNA Probe Negative Negative LAB MICROBIOLOGY METHOD 04/04/2025 11:56 AM EDT [facility] Chlamydia, RNA Probe Negative Negative LAB MICROBIOLOGY METHOD 04/04/2025 11:56 AM EDT [facility] Brushing/Spatula Cervix uteri structure / Unknown 03/31/2025 12:19 PM EDT 04/01/2025 7:24 AM EDT Lakesha RAY LAB CYTOLOGY ORDERABLES Final Result [facility] [address] [place] [address], [place] [phone] * Pap smear (03/31/2025 12:19 PM EDT) Interpretation Negative for intraepithelial lesion or malignancy 04/05/2025 1:24 PM EDT [facility] General Categorization Negative 04/05/2025 1:24 PM EDT [facility] Other Findings Shift in abelardo suggestive of bacterial vaginosis 04/05/2025 1:24 PM EDT [facility] LMP 03/08/2025 04/05/2025 1:24 PM EDT [facility] Specimen Adequacy Satisfactory for evaluation, endocervical/roman sformation zone component present 04/05/2025 1:24 PM EDT [facility] Pap Methodology Liquid Based Pap Test 04/05/2025 1:24 PM EDT [facility] Disclaimer The Pap test is a screening test which carries an inherent false negative rate. These test results should be correlated with the patient's clinical findings and history. This Pap test was processed using an automated screening system. Technical cytopathology services provided by [facility], at [address] [place] [address] (CLIA # [id number]/Lesly Campos MD, [employer].) 04/05/2025 1:24 PM EDT [facility] Console Pap Interpretation Reported 04/05/2025 1:24 PM EDT [facility] Brushing/Spatula Cervix uteri structure / Unknown 03/31/2025 12:19 PM EDT 03/31/2025 12:19 PM EDT Lakesha RAY LAB CYTOLOGY ORDERABLES Final Result Performing Organization Address City/[facility]/ZIP Co de Phone Number [facility] [address] [place] [address], [place] [phone] * Hepatitis C antibody (03/31/2025 12:11 PM EDT) Hepatitis C Antibody Negative Negative LAB CHEMISTRY METHOD 03/31/2025 4:43 PM EDT [facility] Blood Venous blood specimen / Unknown Venipuncture / Unknown 03/31/2025 12:11 PM EDT 03/31/2025 12:11 PM EDT us Lakesha Silva [facility] LAB BLOOD ORDERABLES Final Res ult [facility] [address] [place] [address], [place] [phone] * HIV 1,2 antibody, p24 antigen with reflex to differentiation (03/31/2025 12:11 PM EDT) HIV Combo AB/AG Negative Negative LAB CHEMISTRY METHOD 03/31/2025 4:44 PM EDT [facility] Blood Venous blood specimen / Unknown Venipuncture / Unknown 03/31/2025 12:11 PM EDT 03/31/2025 12:11 PM EDT Narrative [facility] - 03/31/2025 4:44 PM EDT This assay is a 4th generation assay allowing for earlier detection of HIV infection by detecting the presence of the HIV-1 p24 antigen as well as the traditional antibodies to HIV type 1 (including group O) and type 2. Use of a 4th generation assay is the current CDC recommendation for HIV screening. Lakesha RAY LAB BLOOD ORDERABLES Final Res ult [facility] [address] [place] [address], [place] [phone] * Lipid panel with reflex to direct LDL (03/25/2025 1:09 PM EDT) Cholesterol 139 0 - 200 mg/dL LAB CHEMISTRY METHOD 03/25/2025 6:44 PM EDT [facility] Triglycerides 46 0 - 150 mg/dL LAB CHEMISTRY METHOD 03/25/2025 6:44 PM T [facility] HDL 48 >=40 mg/dL LAB CHEMISTRY METHOD 03/25/2025 6:44 PM EDT [facility] LDL Calculated 82 0 - 100 mg/dL LAB CHEMISTRY METHOD 03/25/2025 6:44 PM EDT [facility] VLDL Cholesterol Levi 9.2 mg/dL LAB CHEMISTRY METHOD 03/25/2025 6:44 PM EDT [facility] Non HDL Chol. (LDL+VLDL) 91 <145 mg/dL LAB CHEMISTRY METHOD 03/25/2025 6:44 PM EDT [facility] Chol/HDL Ratio 2.9 0.0 - 4.4 LAB CHEMISTRY METHOD 03/25/2025 6:44 PM EDT [facility] Blood Venous blood specimen / Unknown Venipuncture / Unknown 03/25/2025 1:09 PM EDT 03/25/2025 1:09 PM EDT Kaya Omega SCHNEIDER LAB BLOOD ORDERABLES Final Resul t [facility] [address] [place] [address], * Depression Screening (02/25/2024) Depression Screening abstracted Historical Provider HEALTH MAINTENANCE Final Result from Last 3 Months or Most Recently Relevant to Health Maintenance Insurance [facility] [place] [phone] Care Teams [employer] Coat Joiner Relationship Specialty Start Date End Date Yaya Lamas MD [address] [place] [phone] PCP - General 12/05/22
== END 2025-09-14 12:25 | disposition home or self-care (01) ==
LOC: HO.HBS 11:18
PROVIDERS: PCP Pediatrics; Visit Provider Physician Assistant Surgical
DX: Z71.3 Dietary counseling and surveillance (principal); Z90.3 Acquired absence of stomach [part of]; Z98.84 Bariatric surgery status; Z34.90 Encounter for supervision of normal pregnancy, unspecified, unspecified trimester
CPT/HCPCS: 99214